=== PATIENT | female | born 1940 | race Caucasian/White ===

== ENCOUNTER 2017-01-25 10:19 | Inpatient (IN) | payer MEDICARE, OTHER ==
[2017-01-25] MEDS: Albuterol 0.083% Inhal Sol (2.5 mg/3 mL) UD INH SCH (10:45)
[2017-01-25] MEDS ORDERED: Albuterol-Ipratrop 3 mg / 0.5 (3 ml) UD ONE ×2 (10:47→12:19)
[2017-01-25 10:59] LABS: BASO % 0.4 % (0.0-2.0); EOS % 0.2 % (0.0-4.0); HEMATOCRIT 31.8 % (34.0-47.0); LYMPH # 0.3 K/uL (1.0-4.3); LYMPH % 5.5 % (20.0-40.0); MEAN CELL VOLUME 86.8 fL (81.0-99.0); MEAN CORPUSCULAR HEMOGLOBIN 28.5 pg (27.0-31.0); MEAN CORPUSCULAR HGB CONC 32.8 g/dL (33.0-37.0); MEAN PLATELET VOLUME 6.9 fL (7.2-11.7); MONO % 0.6 % (0.0-10.0); NRBC % 0.1 % (0.0-2.0); PLATELET COUNT 383 K/uL (130-400); RED CELL DISTRIBUTION WIDTH 17.1 % (11.5-14.5); WHITE BLOOD COUNT 6.2 K/uL (4.8-10.8)
[2017-01-25 11:15] LABS: ALB/GLOB RATIO 0.8 (1.0-2.1); ALKALINE PHOSPHATASE 80 U/L (38-126); ALT/SGPT 38 U/L (9-52); AST/SGOT 21 U/L (14-36); BILIRUBIN,TOTAL 2.3 mg/dL (0.2-1.3); BLOOD UREA NITROGEN 8 mg/dL (7-17); CARBON DIOXIDE 31 mmol/L (22-30); CHLORIDE 100 mmol/L (98-107); GFR AFRICAN-AMERICAN > 60; GLUCOSE,RANDOM 250 mg/dL (65-105); POTASSIUM 3.5 mmol/L (3.6-5.2); SODIUM 132 mmol/L (132-148); TOTAL PROTEIN 7.5 g/dL (6.3-8.3)
[2017-01-25 11:28] LABS: CALCIUM 7.5 mg/dl (8.6-10.4)
--- NOTE | 2017-01-25 11:28 | C.PDOC ---
History Of Present Illness 76 y/o female with PMHx of breast cancer and DM and currently on chemo therapy presents to ED with complaints of 2 days productive cough and fever since yesterday with associated worsening sob. Unable to obtain further history secondary to respiratory distress. Time Seen by Provider: 01/25/17 10:25 Chief Complaint (Nursing): Respiratory Distress History/Exam Limitations: clinical condition Onset/Duration Of Symptoms: Days Current Symptoms Are (Timing): Still Present Initiating Event: Upper Respiratory Illness Past Medical History Reviewed: Historical Data, Nursing Documentation, Vital Signs Vital Signs: Last Vital Signs Temp 98 F 01/25/17 14:47 Pulse 98 H 01/25/17 14:47 Resp 15 01/25/17 14:47 BP 116/72 01/25/17 14:47 Pulse Ox 100 01/25/17 14:47 - Medical History PMH: Anemia, COPD, HTN, Hypothyroidism Surgical History: No Surg Hx Family History: States: No Known Family Hx - Social History Hx Alcohol Use: No Hx Substance Use: No - Immunization History Hx Influenza Vaccination: Yes Hx Pneumococcal Vaccination: No (UNSURE) Review Of Systems Review Of Systems: ROS cannot be obtained secondary to pt's inabilty to answer questions. (Patient in respiratory distress) Physical Exam - Physical Exam Appears: Other (In respiratory distress, On bipap ) Skin: Warm, Dry, No Rash Head: Atraumatic, Normacephalic Oral Mucosa: Moist Neck: Supple Chest: Other (Portacath on left chest wall) Cardiovascular: Rhythm Regular Respiratory: No Rales, Rhonchi (bilateral R>L) Gastrointestinal/Abdominal: Soft, No Tenderness, No Guarding, No Rebound Extremity: No Pedal Edema Pulses: Left Dorsalis Pedis: Normal, Right Dorsalis Pedis: Normal Neurological/Psych: Oriented x3, Normal Cranial Nerves (2-12 intact ) ED Course And Treatment - Laboratory Results Result Diagrams: 01/25/17 10:56 01/25/17 10:56 ECG: Interpreted By Me, Viewed By Me ECG Rhythm: Sinus Tachycardia ECG Interpretation: Normal Interpretation Of ECG: no ectopy, normal axis, no ST or T wave changes Rate From EC O2 Sat by Pulse Oximetry: 50 (RA) Pulse Ox Interpretation: Abnormal - Radiology CXR: Interpreted by Me, Viewed By Me CXR Interpretation: Yes: Other (Right upper lobe and right middle lobe whiteout ) Medical Decision Making Medical Decision Making: Impression: Pneumonia, Rhonca spasm, Post chemotherapy sepsis Plan: Bipap, Neb treatment, Blood work, CXR, ECG Progress: TIme: 1215 Spoke to hospitalist will admit patient under service for Pneumonia Disposition Discussed With Dr.: Christian Jovel Doctor Will See Patient In The: Hospital Counseled Patient/Family Regarding: Diagnosis - Disposition Disposition: HOSPITALIZED Disposition Time: 12:19 Condition: GUARDED - Clinical Impression Clinical Impression: Pneumonia - Scribe Statement The provider has reviewed the documentation as recorded by the Birdibflaquita Cage All medical record entries made by the Birdibflaquita were at my direction and personally dictated by me. I have reviewed the chart and agree that the record accurately reflects my personal performance of the history, physical exam, medical decision making, and the department course for this patient. I have also personally directed, reviewed, and agree with the discharge instructions and disposition. Decision To Admit - Pt Status Changed To: Hospital Disposition Of: Inpatient - Admit Certification Admit to Inpatient:: After my assessment, the patient will require hospitalization for at least two midnights. This is because of the severity of symptoms shown, intensity of services needed, and/or the medical risk in this patient being treated as an outpatient. - InPatient: Physician Admission Certification: I certify that this patient requires 2 or more midnights of care for the following reason:: pneumonia - . Bed Request Type: Telemetry Admitting Physician: Christian Jovel Patient Diagnosis: Pneumonia
[2017-01-25 11:30] LABS: GIANT PLATELETS PRESENT; NEUTROPHIL 60 % (50-75); TOTAL CELLS COUNTED 100
[2017-01-25] MEDS ORDERED: Piperacillin/Tazobact 3.375 GM in Sodium Chloride 100 ML IVPB SCH (12:00)
[2017-01-25] MEDS ORDERED: Piperacill/Tazo 3.375gm in Dex 3.375 GM/50 ML BAG IVPB SCH (12:15)
[2017-01-25 12:44] LABS: ABG ALLEN TEST POS; ARTERIAL BLOOD HGB O2 SAT 93.7 % (95.0-98.0); CARBOXYHEMOGLOBIN 1.5 % (0.5-1.5); DRAW SITE LR; HHB 3.2 % (0.0-5.0); METHEMOGLOBIN 1.6 % (0.0-3.0)
--- NOTE | 2017-01-25 13:05 | CP.PCM.HP ---
<AdelinecurlyMaxine ShadyDread - Last Filed: 01/25/17 14:57> History of Present Illness - History of Present Illness History of Present Illness: CC: abdominal pain, sob HPI: Patient is a 76 yo female with PMH of breast cancer, HTN, DM, and thyroid disorder, who presented to the ED for abdominal pain and shortness of breath. Patient complained of cough that was productive with white sputum and abdominal pain for the past two weeks; however, patient currently denies abdominal pain and cough, and only complained of shortness of breath and generalized weakness. Patient's PMD, Dr. Zhou, reports she was recently admitted to [facility] and was being treated for a multi-drug resistant UTI, however, she signed out AMA. Patient has a history of breast cancer and is currently receiving chemotherapy via port on left chest for "brain cancer". She last received chemotherapy on Sunday 2 weeks ago. Patient is a poor historian. Patient's was at bed side and contributing to some of the patient's history. The patient currently denies fever, chills, dizziness, headaches, chest pain, leg pain, dysuria. PMD: Dr. Zhou Oncologist: does not know name PMHx: Breast cancer, HTN, DM, thyroid disorder (not sure if its hypo or hyper and does not take medication), "Brain cancer" SurgHx: Cesarian section; b/l mastectomy 2014 FamHx: unknown SocHx: denies tobacco, alcohol, drug use; unemployed Allergies: NKDA Medications: "medication for diabetes" Present on Admission - Present on Admission Any Indicators Present on Admission: No Review of Systems - Review of Systems Systems not reviewed;Unavailable: Respiratory Distress - Constitutional Constitutional: Lethargy, Weakness. absent: Chills, Fever, Headache - EENT Ears: absent: Dizziness - Cardiovascular Cardiovascular: Chest Pain (sternum-reproducible), Dyspnea. absent: Palpitations - Respiratory Respiratory: Cough. absent: Dyspnea, Hemoptysis, Excessive Mucous Production, Change in Mucous Color (white sputum), Pain with Coughing - Gastrointestinal Gastrointestinal: Abdominal Pain. absent: Constipation, Diarrhea, Nausea, Vomiting - Genitourinary Genitourinary: absent: Dysuria, Hematuria, Pyuria - Neurological Neurological: Weakness. absent: Dizziness, Headaches Past Patient History - Past Social History Smoking Status: Never Smoked - CARDIAC Hx Hypertension: Yes - PULMONARY Hx Chronic Obstructive Pulmonary Disease (COPD): Yes - ENDOCRINE/METABOLIC Hx Hypothyroidism: Yes - HEMATOLOGICAL/ONCOLOGICAL Hx Anemia: Yes - PSYCHIATRIC Hx Substance Use: No - SURGICAL HISTORY Hx Surgeries: Yes Hx Mastectomy: Yes Other/Comment: LT PORTOCATH. LUNG RESECTION - ANESTHESIA Hx Anesthesia: Yes Hx Anesthesia Reactions: No Meds Allergies/Adverse Reactions: Allergies Allergy/AdvReac Type Severity Reaction Status Date / Time No Known Allergies Allergy Verified 01/25/17 10:25 Physical Exam - Head Exam Head Exam: ATRAUMATIC, NORMOCEPHALIC - Eye Exam Eye Exam: EOMI, PERRL (sluggish) - ENT Exam ENT Exam: Mucous Membranes Dry - Respiratory Exam Respiratory Exam: Rhonchi (B/L). absent: Clear to Auscultation Bilateral, Wheezes, Stridor, NORMAL BREATHING PATTERN - Cardiovascular Exam Cardiovascular Exam: Tachycardia, REGULAR RHYTHM, +S1, +S2 Additional comments: Chemotherapy port on left upper chest - GI/Abdominal Exam GI & Abdominal Exam: Distended, Normal Bowel Sounds, Soft. absent: Guarding, Mass, Tenderness - Extremities Exam Extremities exam: Positive for: pedal edema (1+ pitting edema extending frpm knees to feet b/l), pedal pulses present. Negative for: tenderness - Neurological Exam Neurological exam: Alert, Oriented x3 - Psychiatric Exam Psychiatric exam: Normal Affect, Normal Mood - Skin Skin Exam: Dry, Intact, Normal Color, Warm Additional comments: Bilateral mastectomy scars Results - Vital Signs Recent Vital Signs: Last Vital Signs Temp 99.6 F 01/25/17 13:03 Pulse 108 H 01/25/17 13:03 Resp 24 01/25/17 13:03 BP 141/57 L 01/25/17 13:03 Pulse Ox 99 01/25/17 13:03 - Labs Result Diagrams: 01/25/17 10:56 01/25/17 10:56 Labs: Laboratory Results - last 24 hr 01/25/17 01/25/17 01/25/17 10:44 10:56 10:56 WBC 6.2 RBC 3.66 L Hgb 10.4 L D Hct 31.8 L MCV 86.8 D MCH 28.5 MCHC 32.8 L RDW 17.1 H Plt Count 383 MPV 6.9 L Neut % (Auto) 93.3 H Lymph % (Auto) 5.5 L Blount % (Auto) 0.6 Eos % (Auto) 0.2 Baso % (Auto) 0.4 Neut # 5.7 Lymph # 0.3 L Blount # 0.0 Eos # 0.0 Baso # 0.0 Neutrophils % (Manual) 60 Band Neutrophils % 30 H* Lymphocytes % (Manual) 10 L Monocytes % (Manual) TEST NOT PERFORMED Platelet Estimate Normal Plt Clumps, EDTA Electronics Detail Draftsperson Giant Platelets Present Hypochromasia (manual) Slight Anisocytosis (manual) Slight Puncture Site pCO2 pO2 HCO3 ABG pH ABG Total CO2 ABG O2 Saturation ABG Base Excess ABG Hemoglobin ABG Carboxyhemoglobin POC ABG HHb (Measured) ABG Methemoglobin Saman Test A-a O2 Difference Respiratory Index Hgb O2 Saturation FiO2 Inspiratory BiPAP Expiratory BiPAP Sodium 132 Potassium 3.5 L Chloride 100 Carbon Dioxide 31 H Anion Gap 5 L BUN 8 Creatinine 0.4 L Est GFR ( Amer) > 60 Est GFR (Non-Af Amer) > 60 POC Glucose (mg/dL) 235 H Random Glucose 250 H Lactic Acid Calcium 7.5 L Total Bilirubin 2.3 H AST 21 ALT 38 Alkaline Phosphatase 80 Troponin I < 0.0120 NT-Pro-B Natriuret Pep 593 Total Protein 7.5 Albumin 3.3 L Globulin 4.2 H Albumin/Globulin Ratio 0.8 L 01/25/17 01/25/17 11:57 12:35 WBC RBC Hgb Hct MCV MCH MCHC RDW Plt Count MPV Neut % (Auto) Lymph % (Auto) Blount % (Auto) Eos % (Auto) Baso % (Auto) Neut # Lymph # Blount # Eos # Baso # Neutrophils % (Manual) Band Neutrophils % Lymphocytes % (Manual) Monocytes % (Manual) Platelet Estimate Plt Clumps, EDTA Giant Platelets Hypochromasia (manual) Anisocytosis (manual) Puncture Site Lr pCO2 32 L pO2 79 L HCO3 25.4 ABG pH 7.48 H ABG Total CO2 24.8 ABG O2 Saturation 96.7 ABG Base Excess 0.7 ABG Hemoglobin 10.0 L ABG Carboxyhemoglobin 1.5 POC ABG HHb (Measured) 3.2 ABG Methemoglobin 1.6 Saman Test Pos A-a O2 Difference 238.0 Respiratory Index 3.0 Hgb O2 Saturation 93.7 L FiO2 50.0 Inspiratory BiPAP 10 Expiratory BiPAP 5 Sodium Potassium Chloride Carbon Dioxide Anion Gap BUN Creatinine Est GFR ( Amer) Est GFR (Non-Af Amer) POC Glucose (mg/dL) Random Glucose Lactic Acid 1.6 Calcium Total Bilirubin AST ALT Alkaline Phosphatase Troponin I NT-Pro-B Natriuret Pep Total Protein Albumin Globulin Albumin/Globulin Ratio Assessment & Plan (1) Pleural effusion Assessment and Plan: Chest xray: pending official read, possible right pleural effusion Chest CT: pending official read, possible loculated right pleural effusion Pulmonology consulted, Dr. John, help appreciated Continue BiPAP Status: Acute (2) Shortness of breath Assessment and Plan: Likely secondary to pleural effusion * Chest xray: pending official read, possible right pleural effusion * Chest CT: pending official read, possible loculated right pleural effusion * Blood cx: f/u results * Sputum Cx: f/u results * Influenza A/B: f/u results * BiPAP Medications: * Zosyn 3.375mg IV Q6 * Vancomycin 1gm IV Q12 * Cefepime 1gm IV Q12 Status: Acute (3) Diabetes Assessment and Plan: Patient reports having a history of DM and taking medication for DM; however doesnt know name. Called patient's pharmacy, [facility] ([phone]) for list of medications. ISS (low) Continue to monitor ACHS, Blood Glucose A1c: f/u results Status: Acute (4) Hypertension Assessment and Plan: Patient reports a history of HTN. Called patient's pharmacy, [facility] ) for list of medications. Blood pressure has been within normal range, stable since admission. Will continue to monitor vitals. Status: Acute (5) History of thyroid disease Assessment and Plan: Patient reports having history of thyroid disease, but does not know which type and does not take medications. TSH: f/u results Free T4: f/u results Status: Acute (6) History of UTI Assessment and Plan: Patient was recently treated at [facility] for multidrug resistant UTI. UA: f/u results Urine cx: f/u results ID consulted, Dr. Cook, help appreciated Status: Acute (7) Prophylactic measure Assessment and Plan: SCDs Heparin 5000units SC Q8h Pepcid 20mg PO BID Consistent carb/heart health 2Na diet Status: Acute <Christian Jovel H - Last Filed: 01/25/17 18:13> Results - Vital Signs Recent Vital Signs: Last Vital Signs Temp 98.5 F 01/25/17 15:15 Pulse 97 H 01/25/17 15:15 Resp 20 01/25/17 15:15 BP 108/70 01/25/17 15:15 Pulse Ox 98 01/25/17 15:15 - Labs Result Diagrams: 01/25/17 10:56 01/25/17 10:56 Labs: Laboratory Results - last 24 hr 01/25/17 01/25/17 01/25/17 10:44 10:56 10:56 WBC 6.2 RBC 3.66 L Hgb 10.4 L D Hct 31.8 L MCV 86.8 D MCH 28.5 MCHC 32.8 L RDW 17.1 H Plt Count 383 MPV 6.9 L Neut % (Auto) 93.3 H Lymph % (Auto) 5.5 L Blount % (Auto) 0.6 Eos % (Auto) 0.2 Baso % (Auto) 0.4 Neut # 5.7 Lymph # 0.3 L Blount # 0.0 Eos # 0.0 Baso # 0.0 Neutrophils % (Manual) 60 Band Neutrophils % 30 H* Lymphocytes % (Manual) 10 L Monocytes % (Manual) TEST NOT PERFORMED Platelet Estimate Normal Plt Clumps, EDTA Electronics Detail Draftsperson Giant Platelets Present Hypochromasia (manual) Slight Anisocytosis (manual) Slight Puncture Site pCO2 pO2 HCO3 ABG pH ABG Total CO2 ABG O2 Saturation ABG Base Excess ABG Hemoglobin ABG Carboxyhemoglobin POC ABG HHb (Measured) ABG Methemoglobin Saman Test A-a O2 Difference Respiratory Index Hgb O2 Saturation FiO2 Inspiratory BiPAP Expiratory BiPAP Sodium 132 Potassium 3.5 L Chloride 100 Carbon Dioxide 31 H Anion Gap 5 L BUN 8 Creatinine 0.4 L Est GFR ( Amer) > 60 Est GFR (Non-Af Amer) > 60 POC Glucose (mg/dL) 235 H Random Glucose 250 H Hemoglobin A1c Lactic Acid Calcium 7.5 L Total Bilirubin 2.3 H AST 21 ALT 38 Alkaline Phosphatase 80 Troponin I < 0.0120 NT-Pro-B Natriuret Pep 593 Total Protein 7.5 Albumin 3.3 L Globulin 4.2 H Albumin/Globulin Ratio 0.8 L 01/25/17 01/25/17 01/25/17 11:57 12:35 16:50 WBC RBC Hgb Hct MCV MCH MCHC RDW Plt Count MPV Neut % (Auto) Lymph % (Auto) Blount % (Auto) Eos % (Auto) Baso % (Auto) Neut # Lymph # Blount # Eos # Baso # Neutrophils % (Manual) Band Neutrophils % Lymphocytes % (Manual) Monocytes % (Manual) Platelet Estimate Plt Clumps, EDTA Giant Platelets Hypochromasia (manual) Anisocytosis (manual) Puncture Site Lr pCO2 32 L pO2 79 L HCO3 25.4 ABG pH 7.48 H ABG Total CO2 24.8 ABG O2 Saturation 96.7 ABG Base Excess 0.7 ABG Hemoglobin 10.0 L ABG Carboxyhemoglobin 1.5 POC ABG HHb (Measured) 3.2 ABG Methemoglobin 1.6 Saman Test Pos A-a O2 Difference 238.0 Respiratory Index 3.0 Hgb O2 Saturation 93.7 L FiO2 50.0 Inspiratory BiPAP 10 Expiratory BiPAP 5 Sodium Potassium Chloride Carbon Dioxide Anion Gap BUN Creatinine Est GFR ( Amer) Est GFR (Non-Af Amer) POC Glucose (mg/dL) Random Glucose Hemoglobin A1c 8.6 H Lactic Acid 1.6 Calcium Total Bilirubin AST ALT Alkaline Phosphatase Troponin I NT-Pro-B Natriuret Pep Total Protein Albumin Globulin Albumin/Globulin Ratio 01/25/17 17:23 WBC RBC Hgb Hct MCV MCH MCHC RDW Plt Count MPV Neut % (Auto) Lymph % (Auto) Blount % (Auto) Eos % (Auto) Baso % (Auto) Neut # Lymph # Blount # Eos # Baso # Neutrophils % (Manual) Band Neutrophils % Lymphocytes % (Manual) Monocytes % (Manual) Platelet Estimate Plt Clumps, EDTA Giant Platelets Hypochromasia (manual) Anisocytosis (manual) Puncture Site pCO2 pO2 HCO3 ABG pH ABG Total CO2 ABG O2 Saturation ABG Base Excess ABG Hemoglobin ABG Carboxyhemoglobin POC ABG HHb (Measured) ABG Methemoglobin Saman Test A-a O2 Difference Respiratory Index Hgb O2 Saturation FiO2 Inspiratory BiPAP Expiratory BiPAP Sodium Potassium Chloride Carbon Dioxide Anion Gap BUN Creatinine Est GFR ( Amer) Est GFR (Non-Af Amer) POC Glucose (mg/dL) 299 H Random Glucose Hemoglobin A1c Lactic Acid Calcium Total Bilirubin AST ALT Alkaline Phosphatase Troponin I NT-Pro-B Natriuret Pep Total Protein Albumin Globulin Albumin/Globulin Ratio Attending/Attestation - Attestation I have personally seen and examined this patient.: Yes I have fully participated in the care of the patient.: Yes I have reviewed all pertinent clinical information: Yes Notes (Text): Medical attending: The patient was seen and examined by me as well, reviewed the above note by the lpn medical assistant and agree. This is a very ill-appearing 76-year-old female with past medical history for we believed to be breast cancer with metastatic disease. Before coming to see the patient I spoke with the patient's primary care physician to get additional information. The patient is actively getting chemotherapy through a left chest port. It's not clear who the medical research associate oncologist is said she follows up and take oncology group by [facility] in [facility]. The patient is not able to tell us the name of her oncologist physician is. Per my discussion with the patient's primary care physician, the patient was recently at [facility] and being treated for UTI there however for some reason left AMA and might not have finished her antibiotics course. On physical exam she has decreased breath sounds right lung. Review of the imaging shows that there is a chest x-ray showing what appears to be probably a right upper lobe pneumonia, we then ordered a CT scan of the lung which clearly shows that she looks like has a loculated right upper lobe effusion. It's possible that this could be either malignancy or infection The patient has sepsis. Review of lab work shows that she has a normal white blood cell count however she has a very large left shift 90% neutrophils as well as bandemia of 30. It's possible that she is immune compromised from the recent chemotherapy. We will try to get infectious disease consultation, as well as a pulmonology evaluation. The patient will be started on vancomycin as well as cefepime. Recheck blood cultures as well and attempt to get sputum cultures. She was on BiPAP in the emergency room, this was later taken off. She did have ABG she was not acidotic, she did not have a high lactic acid level. Thank you very much, Christian Jovel
[2017-01-25] MEDS ORDERED: Sodium Chloride 0.9% 1,000 ML IV SCH (14:00)
[2017-01-25] MEDS: Sodium Chloride 0.9% 1,000 ML IV SCH (15:15)
[2017-01-25] MEDS ORDERED: Cefepime IV 1 gm in Dextrose 1 GM/50 ML BAG IVPB SCH (16:00)
--- NOTE | 2017-01-25 16:08 | CT ---
CT chest without IV contrast Indication: RUL infiltrate, hx breast CA Technique: Contiguous axial images were obtained through the chest without intravenous contrast enhancement. Sagittal and coronal reconstructions were generated and reviewed. This CT exam was performed using 1 or more of the falling dose reduction techniques: Automated exposure control, adjustment of the MAA and/or kV according to patient size, and/or use of iterative reconstruction technique. Radiation dose (DLP): 323.99 MGy-cm. Comparison: Noncontrast CT of the chest 01/25/17 Findings: Left-sided MediPort extends to the SVC. Heart size appears top normal. Dense mitral annulus calcification. Dense coronary artery calcifications. Evidence of partial left lower lobectomy. Extensive opacification of the right upper lobe possibly represents soft tissue mass/ malignant neoplasm, pneumonia, and/or postobstructive atelectasis. This finding is inseparable from the upper mediastinum and right hilum. The right upper lobe bronchus appears narrowed, possibly occluded. Suspect mucous or neoplasm within the distal right lower lobe bronchus. Small right pleural effusion which dependent consolidation. No pneumothorax. Limited visualization of the noncontrast upper abdomen demonstrates numerous hypodense hepatic masses worrisome for metastases. Small hiatal hernia. Atrophic pancreas. Bilateral mastectomy. Mixed chondroid matrix lesion, right humerus. Degenerative changes of the spine. Evidence of compression fracture, L2, partially imaged. Impression: Evidence of partial left lower lobectomy. Extensive opacification of the right upper lobe possibly represents soft tissue mass/malignant neoplasm, pneumonia, and/or postobstructive atelectasis. Correlate clinically. This finding is inseparable from the upper mediastinum and right hilum. The right upper lobe bronchus appears narrowed, possibly occluded. Suspect mucous or neoplasm within the distal right lower lobe bronchus. Small right pleural effusion which dependent consolidation. Numerous hypodense hepatic masses worrisome for metastases. Bilateral mastectomy. Mixed chondroid matrix lesion, right humerus. This may represent enchondroma or chondrosarcoma in the proper clinical setting. Partially imaged L2 compression fracture deformity. Additional incidental findings as above.
--- NOTE | 2017-01-25 16:20 | RAD ---
PROCEDURE: CHEST RADIOGRAPH, 1 VIEW HISTORY: SOB COMPARISON: 07/29/2015 FINDINGS: LUNGS: Marked interval change- right upper lobe homogeneous opacity in right upper lobe collapse inferred. -left hemithorax similar PLEURA: No pneumothorax or layering right pleural fluid seen. CARDIOVASCULAR: Mild cardiomegaly. 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 Slightly more conspicuous when compared with the 10/22/2011 study VISUALIZED UPPER ABDOMEN: Normal. OTHER FINDINGS: None. IMPRESSION: Interval right upper lobe collapse -endobronchial and or surrounding extrinsic compressive causative lesion suspect.
[2017-01-25] MEDS: (Novolin R) Insulin Human Regular 100 units/ml vial SC SCH ×2 (17:15→22:17)
--- NOTE | 2017-01-25 17:34 | CP.PCM.CON ---
History of Present Illness - History of Present Illness History of Present Illness: 76 yo female presented to the ED for abdominal pain and shortness of breath. Patient complained of cough that was productive with white sputum and abdominal pain for the past two weeks; she was recently admitted to [facility] and was being treated for a multi-drug resistant UTI, however, she signed out AMA. Patient has a history of breast cancer and is currently receiving chemotherapy via port on left chest for "brain cancer". admitted with possible sepsis resp failure and pneumonia- has extensive mets IV Merrem added to vanco Poor prognosis PMHx: Breast cancer, HTN, DM, thyroid disorder (not sure if its hypo or hyper and does not take medication), "Brain cancer" SurgHx: Cesarian section; b/l mastectomy 2014 FamHx: unknown SocHx: denies tobacco, alcohol, drug use; unemployed Allergies: NKDA Review of Systems - Constitutional Constitutional: As Per HPI, Anorexia, Chills, Malaise - EENT Eyes: absent: As Per HPI, Blind Spots, Blurred Vision, Change in Vision, Decreased Night Vision, Diplopia, Discharge, Dry Eye, Exophthalmos, Floaters, Irritation, Itchy Eyes, Loss of Peripheral Vision, Pain, Photophobia, Requires Corrective Lenses, Sees Flashes, Spots in Vision, Tunnel Vision, Other Visual Disturbances, Loss of Vision, Other Ears: absent: As Per HPI, Decreased Hearing, Ear Discharge, Ear Pain, Tinnitus, Abnormal Hearing, Disequilibrium, Dizziness, Other Nose/Mouth/Throat: absent: As Per HPI, Epistaxis, Nasal Congestion, Nasal Discharge, Nasal Obstruction, Nasal Trauma, Nose Pain, Post Nasal Drip, Sinus Pain, Sinus Pressure, Bleeding Gums, Change in Voice, Dental Pain, Dry Mouth, Dysphagia, Halitosis, Hoarsness, Lip Swelling, Mouth Lesions, Mouth Pain, Odynophagia, Sore Throat, Throat Swelling, Tongue Swelling, Facial Pain, Neck Pain, Neck Mass, Other - Breasts Breasts: As Per HPI - Cardiovascular Cardiovascular: As Per HPI - Respiratory Respiratory: Cough, Dyspnea, Dyspnea on Exertion. absent: Hemoptysis - Gastrointestinal Gastrointestinal: absent: As Per HPI, Abdominal Pain, Belching, Bloating, Change in Bowel Habits, Change in Stool Character, Coffee Ground Emesis, Constipation, Cramping, Diarrhea, Dyspepsia, Dysphagia, Early Satiety, Excessive Flatus, Fecal Incontinence, Heartburn, Hematemesis, Hematochezia, Loose Stools, Melena, Nausea, Odynophagia, Temesmus, Vomiting, Other - Genitourinary Genitourinary: As Per HPI - Reproductive: Female Reproductive:Female: absent: As Per HPI, Amenorrhea, Amenorrhea/ Control, Currently Menstual, Cycle <21 Days, Cycle >35 Days, Cycle Variable, Menses 1-7 Days, Menses >/= 8 Days, Menses Variable, Cycle > 4 Weeks Between, No Menses for 6 Months, Heavy Menses, Light Menses, Normal Menses, Spotting Between Cycles , S/P Hysterectomy, Menopausal, Post Menopausal, Premenarche, Abnormal Vaginal Bleeding, Dysmenorrhea, Dyspareunia, Genital Lesions, Genital Pruritis, Pelvic Pain, Prolapse Symptoms, Sexual Dysfunction, Vaginal Discharge, Vaginal Dryness , Vaginal Odor, Vaginal Pruritis, Other - Menstruation Menstruation: absent: As Per HPI, Amenorrhea, Amenorrhea/ Control, Currently Menstual, Cycle <21 Days, Cycle >35 Days, Cycle Variable, Menses 1-7 Days, Menses >/= 8 Days, Menses Variable, Cycle > 4 Weeks Between, No Menses for 6 Months, Heavy Menses, Light Menses, Normal Menses, Spotting Between Cycles , S/P Hysterectomy, Menopausal, Post Menopausal, Premenarche, Abnormal Vaginal Bleeding, Dysmenorrhea, Other - Musculoskeletal Musculoskeletal: absent: As Per HPI, Abnormal Gait, Arthralgias, Atrophy, Back Pain, Deformity, Joint Swelling, Limited Range of Motion, Loss of Height, Muscle Cramps, Muscle Weakness, Myalgias, Neck Pain, Numbness, Radiating Pain into Limb, Stiffness, Tingling, Other - Integumentary Integumentary: absent: As Per HPI, Acne, Alopecia, Bleeding Lesions, Change in Hair, Change in Nails, Change in Pigmentation, Changing Lesions, Dry Skin, Erythema, Furuncle, Hirsutism, Lesions, New Lesions, Non-Healing Lesions, Photosensitivity, Pruritus, Rash, Skin Pain, Skin Ulcer, Sores, Striae, Swelling , Unusual Bruising, Wounds, Jaundice, Other - Neurological Neurological: absent: As Per HPI, Abnormal Gait, Abnormal Hearing, Abnormal Movements, Abnormal Speech, Behavioral Changes, Burning Sensations, Confusion, Convulsions, Disequilibrium, Dizziness, Numbness, Focal Weakness, Frequent Falls , Headaches, Lack of Coordination, Loss of Vision, Memory Loss, Paresthesias, Radicular Pain, Restless Legs, Sensory Deficit, Syncope, Tingling, Tremor, Vertigo, Weakness, Other Visual Disturbances, Other - Psychiatric Psychiatric: absent: As Per HPI, Abnormal Sleep Pattern, Anhedonia, Anxiety, Auditory Hallucinations, Behavioral Changes, Change in Appetite, Change in Libido, Confusion, Depression, Difficulty Concentrating, Hallucinations, Homicidal Ideation, Hopelessness, Irritability, Memory Loss, Mood Swings, Panic Attacks, Paranoia, Suicidal Ideation, Visual Hallucinations, Tactile Hallucinations, Other - Endocrine Endocrine: absent: As Per HPI, Change in Body Appearance, Change in Libido, Cold Intolorance, Deepening of Voice, Excessive Sweating, Fatigue, Flushing, Heat Intolorance, Increase in Ring/Shoe/Hat Size, Palpitations, Polydipsia, Polyphagia, Polyuria, Other - Hematologic/Lymphatic Hematologic: absent: As Per HPI, Easy Bleeding, Easy Bruising, Lymphadenopathy, Other Past Patient History - Past Social History Smoking Status: Never Smoked - CARDIAC Hx Hypertension: Yes - PULMONARY Hx Chronic Obstructive Pulmonary Disease (COPD): Yes - ENDOCRINE/METABOLIC Hx Hypothyroidism: Yes - HEMATOLOGICAL/ONCOLOGICAL Hx Anemia: Yes - PSYCHIATRIC Hx Substance Use: No - SURGICAL HISTORY Hx Surgeries: Yes Hx Mastectomy: Yes Other/Comment: LT PORTOCATH. LUNG RESECTION - ANESTHESIA Hx Anesthesia: Yes Hx Anesthesia Reactions: No Meds Allergies/Adverse Reactions: Allergies Allergy/AdvReac Type Severity Reaction Status Date / Time No Known Allergies Allergy Verified 01/25/17 10:25 - Medications Medications: Current Medications Acetaminophen (Tylenol 325mg Tab) 650 mg PO Q6 PRN PRN Reason: Pain, Mild (1-3) Famotidine (Pepcid) 20 mg PO BID [facility] Heparin Sodium (Porcine) (Heparin) 5,000 units SC Q8 [facility] Cefepime HCl (Maxipime Iv 1 Gm Premix) 1 gm in 50 mls @ 100 mls/hr IVPB Q12H [facility] Vancomycin/Sodium Chloride (Vancomycin 1 Gm/Ns 200 Ml) 1 gm in 200 mls @ 133 mls/hr IVPB Q12H [facility] Stop: 01/30/17 17:01 Sodium Chloride (Sodium Chloride 0.9%) 1,000 mls @ 40 mls/hr IV .Q24H [facility] Last Admin: 01/25/17 15:15 Dose: 40 mls/hr Insulin Human Regular (Novolin R) 0 unit SC ACHS [facility]ELINA PRN Reason: Protocol Physical Exam - Constitutional Appears: Confused, Cachectic, Chronically Ill - Head Exam Head Exam: ATRAUMATIC, NORMAL INSPECTION, NORMOCEPHALIC - Eye Exam Eye Exam: PERRL. absent: Scleral icterus - ENT Exam ENT Exam: Mucous Membranes Dry, Normal External Ear Exam - Neck Exam Neck exam: Negative for: Lymphadenopathy - Respiratory Exam Respiratory Exam: Decreased Breath Sounds, Prolonged Expiratory Phase, Rhonchi - Cardiovascular Exam Cardiovascular Exam: Tachycardia, REGULAR RHYTHM, +S1, +S2 - GI/Abdominal Exam GI & Abdominal Exam: Diminished Bowel Sounds, Distended, Soft. absent: Guarding , Rebound, Rigid - Rectal Exam Rectal Exam: Deferred - Exam Exam: NORMAL INSPECTION - Extremities Exam Extremities exam: Positive for: pedal pulses present. Negative for: calf tenderness, pedal edema, tenderness - Back Exam Back exam: absent: CVA tenderness (L), CVA tenderness (R), paraspinal tenderness - Neurological Exam Neurological exam: Alert, CN II-XII Intact, Oriented x3 - Psychiatric Exam Psychiatric exam: Depressed - Skin Skin Exam: Dry Results - Vital Signs Recent Vital Signs: Last Vital Signs Temp 98.5 F 01/25/17 15:15 Pulse 97 H 01/25/17 15:15 Resp 20 01/25/17 15:15 BP 108/70 01/25/17 15:15 Pulse Ox 98 01/25/17 15:15 - Labs Result Diagrams: 01/25/17 10:56 01/25/17 10:56 Labs: Laboratory Results - last 24 hr 01/25/17 01/25/17 01/25/17 10:44 10:56 10:56 WBC 6.2 RBC 3.66 L Hgb 10.4 L D Hct 31.8 L MCV 86.8 D MCH 28.5 MCHC 32.8 L RDW 17.1 H Plt Count 383 MPV 6.9 L Neut % (Auto) 93.3 H Lymph % (Auto) 5.5 L [place] % (Auto) 0.6 Eos % (Auto) 0.2 Baso % (Auto) 0.4 Neut # 5.7 Lymph # 0.3 L [place] # 0.0 Eos # 0.0 Baso # 0.0 Neutrophils % (Manual) 60 Band Neutrophils % 30 H* Lymphocytes % (Manual) 10 L Monocytes % (Manual) TEST NOT PERFORMED Platelet Estimate Normal Plt Clumps, EDTA [employer] Giant Platelets Present Hypochromasia (manual) Slight Anisocytosis (manual) Slight Puncture Site pCO2 pO2 HCO3 ABG pH ABG Total CO2 ABG O2 Saturation ABG Base Excess ABG Hemoglobin ABG Carboxyhemoglobin POC ABG HHb (Measured) ABG Methemoglobin Saman Test A-a O2 Difference Respiratory Index Hgb O2 Saturation FiO2 Inspiratory BiPAP Expiratory BiPAP Sodium 132 Potassium 3.5 L Chloride 100 Carbon Dioxide 31 H Anion Gap 5 L BUN 8 Creatinine 0.4 L Est GFR ( Amer) > 60 Est GFR (Non-Af Amer) > 60 POC Glucose (mg/dL) 235 H Random Glucose 250 H Hemoglobin A1c Lactic Acid Calcium 7.5 L Total Bilirubin 2.3 H AST 21 ALT 38 Alkaline Phosphatase 80 Troponin I < 0.0120 NT-Pro-B Natriuret Pep 593 Total Protein 7.5 Albumin 3.3 L Globulin 4.2 H Albumin/Globulin Ratio 0.8 L 01/25/17 01/25/17 01/25/17 11:57 12:35 16:50 WBC RBC Hgb Hct MCV MCH MCHC RDW Plt Count MPV Neut % (Auto) Lymph % (Auto) [place] % (Auto) Eos % (Auto) Baso % (Auto) Neut # Lymph # [place] # Eos # Baso # Neutrophils % (Manual) Band Neutrophils % Lymphocytes % (Manual) Monocytes % (Manual) Platelet Estimate Plt Clumps, EDTA Giant Platelets Hypochromasia (manual) Anisocytosis (manual) Puncture Site Lr pCO2 32 L pO2 79 L HCO3 25.4 ABG pH 7.48 H ABG Total CO2 24.8 ABG O2 Saturation 96.7 ABG Base Excess 0.7 ABG Hemoglobin 10.0 L ABG Carboxyhemoglobin 1.5 POC ABG HHb (Measured) 3.2 ABG Methemoglobin 1.6 Saman Test Pos A-a O2 Difference 238.0 Respiratory Index 3.0 Hgb O2 Saturation 93.7 L FiO2 50.0 Inspiratory BiPAP 10 Expiratory BiPAP 5 Sodium Potassium Chloride Carbon Dioxide Anion Gap BUN Creatinine Est GFR ( Amer) Est GFR (Non-Af Amer) POC Glucose (mg/dL) Random Glucose Hemoglobin A1c 8.6 H Lactic Acid 1.6 Calcium Total Bilirubin AST ALT Alkaline Phosphatase Troponin I NT-Pro-B Natriuret Pep Total Protein Albumin Globulin Albumin/Globulin Ratio Assessment & Plan (1) Diabetes Status: Acute (2) History of UTI Status: Acute (3) Pleural effusion Status: Acute (4) Pneumonia Status: Acute (5) Shortness of breath Status: Acute - Assessment and Plan (Free Text) Assessment: breast CA IV s/p chemo Liver mets possible lung mets resp failure hx MDRO UTI sepsis Plan: add merrem to vanco
[2017-01-25] MEDS: Vancomycin 1 gm/NS 200 ml 1 GM/200 ML BAG IVPB SCH (17:56)
--- NOTE | 2017-01-25 18:51 | CP.PCM.CON ---
History of Present Illness - History of Present Illness History of Present Illness: reason for consultation: shortness of breath 76 yo female With history off brain tumor, breast cancer with metastases to lung status post lobectomy presented to the ED for abdominal pain and shortness of breath. Patient complained of cough that was productive with white sputum and abdominal pain for the past two weeks; she was recently admitted to [facility] and was being treated for a multi-drug resistant UTI, however, she signed out AMA. Patient has a history of breast cancer and is currently receiving chemotherapy via port on left chest for "brain cancer". PMHx: Breast cancer, HTN, DM, thyroid disorder (not sure if its hypo or hyper and does not take medication), "Brain cancer" SurgHx: Cesarian section; b/l mastectomy 2014 FamHx: unknown SocHx: denies tobacco, alcohol, drug use; unemployed Allergies: NKDA Review of Systems - Review of Systems Systems not reviewed;Unavailable: Language Barrier Past Patient History - Past Social History Smoking Status: Never Smoked - CARDIAC Hx Hypertension: Yes - PULMONARY Hx Chronic Obstructive Pulmonary Disease (COPD): Yes - ENDOCRINE/METABOLIC Hx Hypothyroidism: Yes - HEMATOLOGICAL/ONCOLOGICAL Hx Anemia: Yes - PSYCHIATRIC Hx Substance Use: No - SURGICAL HISTORY Hx Surgeries: Yes Hx Mastectomy: Yes Other/Comment: LT PORTOCATH. LUNG RESECTION - ANESTHESIA Hx Anesthesia: Yes Hx Anesthesia Reactions: No Meds Allergies/Adverse Reactions: Allergies Allergy/AdvReac Type Severity Reaction Status Date / Time No Known Allergies Allergy Verified 01/25/17 10:25 - Medications Medications: Current Medications Acetaminophen (Tylenol 325mg Tab) 650 mg PO Q6 PRN PRN Reason: Pain, Mild (1-3) Famotidine (Pepcid) 20 mg PO BID [facility] Heparin Sodium (Porcine) (Heparin) 5,000 units SC Q8 [facility] Vancomycin/Sodium Chloride (Vancomycin 1 Gm/Ns 200 Ml) 1 gm in 200 mls @ 133 mls/hr IVPB Q12H [facility] Stop: 01/30/17 17:01 Last Admin: 01/25/17 17:56 Dose: 133 mls/hr Sodium Chloride (Sodium Chloride 0.9%) 1,000 mls @ 40 mls/hr IV .Q24H [facility]INA Last Admin: 01/25/17 15:15 Dose: 40 mls/hr Meropenem 1 gm/ Sodium (Chloride) 100 mls @ 100 mls/hr IVPB Q8H [facility] Insulin Human Regular (Novolin R) 0 unit SC ACHS MARCELINA PRN Reason: Protocol Physical Exam - Head Exam Head Exam: ATRAUMATIC, NORMOCEPHALIC Results - Vital Signs Recent Vital Signs: Last Vital Signs Temp 98.5 F 01/25/17 15:15 Pulse 97 H 01/25/17 15:15 Resp 20 01/25/17 15:15 BP 108/70 01/25/17 15:15 Pulse Ox 98 01/25/17 15:15 - Labs Result Diagrams: 01/25/17 10:56 01/25/17 10:56 Labs: Laboratory Results - last 24 hr 01/25/17 01/25/17 01/25/17 10:44 10:56 10:56 WBC 6.2 RBC 3.66 L Hgb 10.4 L D Hct 31.8 L MCV 86.8 D MCH 28.5 MCHC 32.8 L RDW 17.1 H Plt Count 383 MPV 6.9 L Neut % (Auto) 93.3 H Lymph % (Auto) 5.5 L [place] % (Auto) 0.6 Eos % (Auto) 0.2 Baso % (Auto) 0.4 Neut # 5.7 Lymph # 0.3 L [place] # 0.0 Eos # 0.0 Baso # 0.0 Neutrophils % (Manual) 60 Band Neutrophils % 30 H* Lymphocytes % (Manual) 10 L Monocytes % (Manual) TEST NOT PERFORMED Platelet Estimate Normal Plt Clumps, EDTA [employer]yer Giant Platelets Present Hypochromasia (manual) Slight Anisocytosis (manual) Slight Puncture Site pCO2 pO2 HCO3 ABG pH ABG Total CO2 ABG O2 Saturation ABG Base Excess ABG Hemoglobin ABG Carboxyhemoglobin POC ABG HHb (Measured) ABG Methemoglobin Saman Test A-a O2 Difference Respiratory Index Hgb O2 Saturation FiO2 Inspiratory BiPAP Expiratory BiPAP Sodium 132 Potassium 3.5 L Chloride 100 Carbon Dioxide 31 H Anion Gap 5 L BUN 8 Creatinine 0.4 L Est GFR ( Amer) > 60 Est GFR (Non-Af Amer) > 60 POC Glucose (mg/dL) 235 H Random Glucose 250 H Hemoglobin A1c Lactic Acid Calcium 7.5 L Total Bilirubin 2.3 H AST 21 ALT 38 Alkaline Phosphatase 80 Troponin I < 0.0120 NT-Pro-B Natriuret Pep 593 Total Protein 7.5 Albumin 3.3 L Globulin 4.2 H Albumin/Globulin Ratio 0.8 L 01/25/17 01/25/17 01/25/17 11:57 12:35 16:50 WBC RBC Hgb Hct MCV MCH MCHC RDW Plt Count MPV Neut % (Auto) Lymph % (Auto) [place] % (Auto) Eos % (Auto) Baso % (Auto) Neut # Lymph # [place] # Eos # Baso # Neutrophils % (Manual) Band Neutrophils % Lymphocytes % (Manual) Monocytes % (Manual) Platelet Estimate Plt Clumps, EDTA Giant Platelets Hypochromasia (manual) Anisocytosis (manual) Puncture Site Lr pCO2 32 L pO2 79 L HCO3 25.4 ABG pH 7.48 H ABG Total CO2 24.8 ABG O2 Saturation 96.7 ABG Base Excess 0.7 ABG Hemoglobin 10.0 L ABG Carboxyhemoglobin 1.5 POC ABG HHb (Measured) 3.2 ABG Methemoglobin 1.6 Saman Test Pos A-a O2 Difference 238.0 Respiratory Index 3.0 Hgb O2 Saturation 93.7 L FiO2 50.0 Inspiratory BiPAP 10 Expiratory BiPAP 5 Sodium Potassium Chloride Carbon Dioxide Anion Gap BUN Creatinine Est GFR ( Amer) Est GFR (Non-Af Amer) POC Glucose (mg/dL) Random Glucose Hemoglobin A1c 8.6 H Lactic Acid 1.6 Calcium Total Bilirubin AST ALT Alkaline Phosphatase Troponin I NT-Pro-B Natriuret Pep Total Protein Albumin Globulin Albumin/Globulin Ratio 01/25/17 17:23 WBC RBC Hgb Hct MCV MCH MCHC RDW Plt Count MPV Neut % (Auto) Lymph % (Auto) [place] % (Auto) Eos % (Auto) Baso % (Auto) Neut # Lymph # [place] # Eos # Baso # Neutrophils % (Manual) Band Neutrophils % Lymphocytes % (Manual) Monocytes % (Manual) Platelet Estimate Plt Clumps, EDTA Giant Platelets Hypochromasia (manual) Anisocytosis (manual) Puncture Site pCO2 pO2 HCO3 ABG pH ABG Total CO2 ABG O2 Saturation ABG Base Excess ABG Hemoglobin ABG Carboxyhemoglobin POC ABG HHb (Measured) ABG Methemoglobin Saman Test A-a O2 Difference Respiratory Index Hgb O2 Saturation FiO2 Inspiratory BiPAP Expiratory BiPAP Sodium Potassium Chloride Carbon Dioxide Anion Gap BUN Creatinine Est GFR ( Amer) Est GFR (Non-Af Amer) POC Glucose (mg/dL) 299 H Random Glucose Hemoglobin A1c Lactic Acid Calcium Total Bilirubin AST ALT Alkaline Phosphatase Troponin I NT-Pro-B Natriuret Pep Total Protein Albumin Globulin Albumin/Globulin Ratio Assessment & Plan (1) Pneumonia Status: Acute (2) Shortness of breath Status: Acute
[2017-01-25] MEDS: Albuterol-Ipratrop 3 mg / 0.5 (3 ml) UD INH SCH (19:28)
[2017-01-25] MEDS: Meropenem 1 GM in Sodium Chloride 0.9% 100 ML IVPB SCH (19:40)
[2017-01-25 22:04] LABS: RBC URINE < 1 /hpf (0-3); URINE BILIRUBIN NEGATIVE (NEGATIVE); URINE BLOOD NEGATIVE (NEGATIVE); URINE COLOR Yellow (YELLOW); URINE GLUCOSE (UA) 3+ mg/dL (Normal); URINE KETONE 1+ mg/dL (NEGATIVE); URINE LEUKOCYTE ESTERASE NEG Leu/uL (Negative); URINE PROTEIN NEGATIVE (NEGATIVE); WBC URINE 1 /hpf (0-5)
[2017-01-25] MEDS: MethylPREDNISolone 40 mg Vial IV SCH (22:25)
[2017-01-26] MEDS: Albuterol-Ipratrop 3 mg / 0.5 (3 ml) UD INH SCH ×4 (01:28→19:31)
[2017-01-26] MEDS: Meropenem 1 GM in Sodium Chloride 0.9% 100 ML IVPB SCH ×3 (04:03→19:24)
[2017-01-26] MEDS: MethylPREDNISolone 40 mg Vial IV SCH ×3 (06:12→21:55)
[2017-01-26] MEDS: Vancomycin 1 gm/NS 200 ml 1 GM/200 ML BAG IVPB SCH ×2 (06:14→16:01)
[2017-01-26 07:52] LABS: BASO % 0.2 % (0.0-2.0); HEMATOCRIT 26.5 % (34.0-47.0); LYMPH # 0.5 K/uL (1.0-4.3); LYMPH % 5.3 % (20.0-40.0); MEAN CELL VOLUME 87.6 fL (81.0-99.0); MEAN CORPUSCULAR HEMOGLOBIN 28.4 pg (27.0-31.0); MEAN CORPUSCULAR HGB CONC 32.4 g/dL (33.0-37.0); MEAN PLATELET VOLUME 7.6 fL (7.2-11.7); MONO # 0.1 K/uL (0.0-0.8); MONO % 0.7 % (0.0-10.0); NRBC % 0.1 % (0.0-2.0); RED CELL DISTRIBUTION WIDTH 16.9 % (11.5-14.5); WHITE BLOOD COUNT 9.3 K/uL (4.8-10.8)
[2017-01-26 07:57] LABS: PLATELET COUNT 273 K/uL (130-400)
[2017-01-26] MEDS: (Novolin R) Insulin Human Regular 100 units/ml vial SC SCH ×4 (08:35→23:02)
[2017-01-26 08:39] LABS: ALB/GLOB RATIO 0.8 (1.0-2.1); ALKALINE PHOSPHATASE 62 U/L (38-126); ALT/SGPT 38 U/L (9-52); AST/SGOT 19 U/L (14-36); BLOOD UREA NITROGEN 9 mg/dL (7-17); CALCIUM 7.2 mg/dl (8.6-10.4); CARBON DIOXIDE 28 mmol/L (22-30); CHLORIDE 102 mmol/L (98-107); GFR AFRICAN-AMERICAN > 60; GLUCOSE,RANDOM 237 mg/dL (65-105); POTASSIUM 3.6 mmol/L (3.6-5.2); SODIUM 133 mmol/L (132-148); TOTAL PROTEIN 6.7 g/dL (6.3-8.3)
[2017-01-26 08:56] LABS: T4 7.16 ug/dL (5.5-11.0)
[2017-01-26 09:10] LABS: THYROID STIMULATING HORMONE 0.23 mIU/L (0.46-4.68)
[2017-01-26 09:34] LABS: NEUTROPHIL 64 % (50-75); TOTAL CELLS COUNTED 100
--- NOTE | 2017-01-26 10:14 | CP.PCM.PN ---
Subjective - Date & Time of Evaluation Date of Evaluation: 01/26/17 Time of Evaluation: 09:00 - Subjective Subjective: the patient seen and examined 76-year-old female with history of lung cancer status post lobectomy 3 years ago , metastatic breast cancer with mets to brain and lungs admitted with shortness of breath and cough, patient being treated for postobstructive pneumonia On BiPAP and antibiotics Breathing better Started on steroids and nebulizer treatment yesterday Objective - Vital Signs/Intake and Output Vital Signs (last 24 hours): Temp Pulse Resp BP Pulse Ox 99.0 F 105 H 20 125/79 97 01/26/17 08:05 01/26/17 08:05 01/26/17 08:05 01/26/17 08:05 01/26/17 08:05 Intake and Output: 01/26/17 01/26/17 06:59 18:59 Intake Total 280 Balance 280 - Medications Medications: Current Medications Acetaminophen (Tylenol 325mg Tab) 650 mg PO Q6 PRN PRN Reason: Pain, Mild (1-3) Albuterol/Ipratropium (Duoneb 3 Mg/0.5 Mg (3 Ml) Ud) 3 ml INH RQ6 [facility] Last Admin: 01/26/17 07:19 Dose: 3 ml Famotidine (Pepcid) 20 mg PO BID [facility] Last Admin: 01/26/17 10:08 Dose: 20 mg Heparin Sodium (Porcine) (Heparin) 5,000 units SC Q8 [facility] Last Admin: 01/26/17 06:13 Dose: 5,000 units Vancomycin/Sodium Chloride (Vancomycin 1 Gm/Ns 200 Ml) 1 gm in 200 mls @ 133 mls/hr IVPB Q12H [facility] Stop: 01/30/17 17:01 Last Admin: 01/26/17 06:14 Dose: 133 mls/hr Sodium Chloride (Sodium Chloride 0.9%) 1,000 mls @ 40 mls/hr IV .Q24H [facility] Last Admin: 01/25/17 15:15 Dose: 40 mls/hr Meropenem 1 gm/ Sodium (Chloride) 100 mls @ 100 mls/hr IVPB Q8H [facility] Last Admin: 01/26/17 10:10 Dose: 100 mls/hr Insulin Human Regular (Novolin R) 0 unit SC ACHS [facility]ELINA PRN Reason: Protocol Last Admin: 01/26/17 08:35 Dose: 3 unit Methylprednisolone (Solu-Medrol) 40 mg IV Q8 [facility] Last Admin: 01/26/17 06:12 Dose: 40 mg - Labs Labs: 01/26/17 07:39 01/26/17 07:39 - Head Exam Head Exam: ATRAUMATIC, NORMOCEPHALIC - ENT Exam ENT Exam: Mucous Membranes Moist - Neck Exam Neck Exam: Normal Inspection - Respiratory Exam Respiratory Exam: Decreased Breath Sounds, Rales, Rhonchi - Cardiovascular Exam Cardiovascular Exam: REGULAR RHYTHM - GI/Abdominal Exam GI & Abdominal Exam: Soft, Normal Bowel Sounds Assessment and Plan (1) Pneumonia Assessment & Plan: continue IV antibiotics Followup culture and sensitivity BiPAP IV antibiotics IV steroids Status: Acute (2) Shortness of breath Status: Acute
[2017-01-26 10:15] LABS: PHOSPHOROUS 2.2 mg/dL (2.5-4.5)
[2017-01-26] MEDS: Potassium & Sodium Phosphate PO SCH ×3 (12:15→18:37)
[2017-01-26] MEDS: Sodium Chloride 0.9% 1,000 ML IV SCH (14:21)
--- NOTE | 2017-01-26 15:56 | CP.PCM.PN ---
Subjective - Date & Time of Evaluation Date of Evaluation: 01/26/17 Time of Evaluation: 08:00 - Subjective Subjective: 76-year-old female with history of lung cancer status post lobectomy 3 years ago , metastatic breast cancer with mets to brain and lungs admitted with shortness of breath and cough, patient being treated for postobstructive pneumonia Objective - Vital Signs/Intake and Output Vital Signs (last 24 hours): Temp Pulse Resp BP Pulse Ox 97.8 F 79 20 112/73 96 01/26/17 15:40 01/26/17 15:40 01/26/17 15:40 01/26/17 15:40 01/26/17 15:40 Intake and Output: 01/26/17 01/26/17 06:59 18:59 Intake Total 280 Balance 280 - Medications Medications: Current Medications Acetaminophen (Tylenol 325mg Tab) 650 mg PO Q6 PRN PRN Reason: Pain, Mild (1-3) Albuterol/Ipratropium (Duoneb 3 Mg/0.5 Mg (3 Ml) Ud) 3 ml INH RQ6 [facility] Last Admin: 01/26/17 13:41 Dose: 3 ml Famotidine (Pepcid) 20 mg PO BID [facility] Last Admin: 01/26/17 10:08 Dose: 20 mg Heparin Sodium (Porcine) (Heparin) 5,000 units SC Q8 [facility] Last Admin: 01/26/17 13:53 Dose: 5,000 units Vancomycin/Sodium Chloride (Vancomycin 1 Gm/Ns 200 Ml) 1 gm in 200 mls @ 133 mls/hr IVPB Q12H [facility] Stop: 01/30/17 17:01 Last Admin: 01/26/17 06:14 Dose: 133 mls/hr Sodium Chloride (Sodium Chloride 0.9%) 1,000 mls @ 40 mls/hr IV .Q24H [facility] Last Admin: 01/26/17 14:21 Dose: Not Given Meropenem 1 gm/ Sodium (Chloride) 100 mls @ 100 mls/hr IVPB Q8H [facility] Last Admin: 01/26/17 10:10 Dose: 100 mls/hr Insulin Human Regular (Novolin R) 0 unit SC ACHS MARCELINA PRN Reason: Protocol Last Admin: 01/26/17 11:31 Dose: 3 unit Methylprednisolone (Solu-Medrol) 40 mg IV Q8 [facility] Last Admin: 01/26/17 13:54 Dose: 40 mg Potassium Phos/Sodium Phos (Neutra-Phos) 1 pkt PO TID [facility]INA Stop: 01/27/17 11:31 Last Admin: 01/26/17 14:05 Dose: 1 pkt - Labs Labs: 01/26/17 07:39 01/26/17 07:39 Assessment and Plan (1) Diabetes Status: Acute (2) History of UTI Status: Acute (3) Pleural effusion Status: Acute (4) Pneumonia Status: Acute (5) Shortness of breath Status: Acute
--- NOTE | 2017-01-26 16:09 | CP.PCM.PN ---
<HennaIgnacia - Last Filed: 01/26/17 16:06> Subjective - Date & Time of Evaluation Date of Evaluation: 01/26/17 Time of Evaluation: 10:00 - Subjective Subjective: Medicine Note for Hospitalist Service - Dr. Priyank Jovel Patient was seen and examined at bedside. Patient reports her breathing has improved with the BiPAP in place. Denied fever, chills, headache, chest pain, SOB, abdominal pain, n/v/d/c, or urinary symptoms. Objective - Vital Signs/Intake and Output Vital Signs (last 24 hours): Temp Pulse Resp BP Pulse Ox 97.8 F 79 20 112/73 96 01/26/17 15:40 01/26/17 15:40 01/26/17 15:40 01/26/17 15:40 01/26/17 15:40 Intake and Output: 01/26/17 01/26/17 06:59 18:59 Intake Total 280 Balance 280 - Medications Medications: Current Medications Acetaminophen (Tylenol 325mg Tab) 650 mg PO Q6 PRN PRN Reason: Pain, Mild (1-3) Albuterol/Ipratropium (Duoneb 3 Mg/0.5 Mg (3 Ml) Ud) 3 ml INH RQ6 [facility] Last Admin: 01/26/17 13:41 Dose: 3 ml Famotidine (Pepcid) 20 mg PO BID [facility] Last Admin: 01/26/17 10:08 Dose: 20 mg Heparin Sodium (Porcine) (Heparin) 5,000 units SC Q8 [facility] Last Admin: 01/26/17 13:53 Dose: 5,000 units Vancomycin/Sodium Chloride (Vancomycin 1 Gm/Ns 200 Ml) 1 gm in 200 mls @ 133 mls/hr IVPB Q12H [facility] Stop: 01/30/17 17:01 Last Admin: 01/26/17 16:01 Dose: 133 mls/hr Sodium Chloride (Sodium Chloride 0.9%) 1,000 mls @ 40 mls/hr IV .Q24H [facility] Last Admin: 01/26/17 14:21 Dose: Not Given Meropenem 1 gm/ Sodium (Chloride) 100 mls @ 100 mls/hr IVPB Q8H [facility] Last Admin: 01/26/17 10:10 Dose: 100 mls/hr Insulin Human Regular (Novolin R) 0 unit SC ACHS [facility] PRN Reason: Protocol Last Admin: 01/26/17 11:31 Dose: 3 unit Methylprednisolone (Solu-Medrol) 40 mg IV Q8 [facility] Last Admin: 01/26/17 13:54 Dose: 40 mg Potassium Phos/Sodium Phos (Neutra-Phos) 1 pkt PO TID [facility] Stop: 01/27/17 11:31 Last Admin: 01/26/17 14:05 Dose: 1 pkt - Labs Labs: 01/26/17 07:39 01/26/17 07:39 - Additional Findings Additional findings: - Head Exam Head Exam: ATRAUMATIC, NORMOCEPHALIC - Eye Exam Eye Exam: EOMI, PERRL (sluggish) - ENT Exam ENT Exam: Mucous Membranes Dry - Respiratory Exam Respiratory Exam: Rhonchi (B/L). absent: Clear to Auscultation Bilateral, Wheezes, Stridor, NORMAL BREATHING PATTERN - Cardiovascular Exam Cardiovascular Exam: Tachycardia, REGULAR RHYTHM, +S1, +S2 Additional comments: Chemotherapy port on left upper chest - GI/Abdominal Exam GI & Abdominal Exam: Distended, Normal Bowel Sounds, Soft. absent: Guarding, Mass, Tenderness - Extremities Exam Extremities exam: Positive for: pedal edema (1+ pitting edema extending frpm knees to feet b/l), pedal pulses present. Negative for: tenderness - Neurological Exam Neurological exam: Alert, Oriented x3 - Psychiatric Exam Psychiatric exam: Normal Affect, Normal Mood - Skin Skin Exam: Dry, Intact, Normal Color, Warm Additional comments: Bilateral mastectomy scars Assessment and Plan - Assessment and Plan (Free Text) Plan: Pleural effusion Shortness of breath Assessment and Plan: Pulmonology consulted, Dr. John, help appreciated - suspects more infectious process * Chest xray: Interval right upper lobe collapse -endobronchial and or surrounding extrinsic compressive causative lesion suspect. * Chest CT: Evidence of partial left lower lobectomy. Extensive opacification of the right upper lobe possibly represents soft tissue mass/malignant neoplasm , pneumonia, and/or postobstructive atelectasis. Correlate clinically. This finding is inseparable from the upper mediastinum and right hilum. The right upper lobe bronchus appears narrowed, possibly occluded. Suspect mucous or neoplasm within the distal right lower lobe bronchus. Small right pleural effusion which dependent consolidation. Numerous hypodense hepatic masses worrisome for metastases. Bilateral mastectomy. Mixed chondroid matrix lesion, right humerus. This may represent enchondroma or chondrosarcoma in the proper clinical setting. Partially imaged L2 compression fracture deformity. * Blood cx: f/u results * Sputum Cx: f/u results * Influenza A/B: f/u results Medications: * Continue BiPAP * Zosyn 3.375mg IV Q6 * Vancomycin 1gm IV Q12 * Cefepime 1gm IV Q12 Anemia Assessment and Plan: Hemoglobin on admission: 10.4 This morning 8.6 Patient will be transfused 1 unit PRBCs today Monitor Diabetes Assessment and Plan: Patient reports having a history of DM and taking medication for DM; however doesnt know name. Called patient's pharmacy, [facility] ([phone]) for list of medications. ISS (moderate) Continue to monitor ACHS A1c: 8.6 Hypertension Assessment and Plan: Patient reports a history of HTN. Called patient's pharmacy, [facility] ) for list of medications. Blood pressure has been within normal range, stable since admission. Will continue to monitor vitals. History of thyroid disease Assessment and Plan: Patient reports having history of thyroid disease, but does not know which type and does not take medications. TSH,T4: WNL History of UTI Assessment and Plan: Patient was recently treated at [facility] for multidrug resistant UTI. UA: WNL Urine cx: f/u results ID consulted, Dr. Cook, help appreciated Prophylactic measure Assessment and Plan: SCDs, Heparin 5000units SC Q8h Pepcid 20mg PO BID Consistent carb/heart health 2Na diet DW Henna Arshad DO, PGY-1 <Christian Jovel H - Last Filed: 01/26/17 17:10> Objective - Vital Signs/Intake and Output Vital Signs (last 24 hours): Temp Pulse Resp BP Pulse Ox 97.8 F 79 20 112/73 96 01/26/17 15:40 01/26/17 15:40 01/26/17 15:40 01/26/17 15:40 01/26/17 15:40 Intake and Output: 01/26/17 01/26/17 06:59 18:59 Intake Total 280 Balance 280 - Medications Medications: Current Medications Acetaminophen (Tylenol 325mg Tab) 650 mg PO Q6 PRN PRN Reason: Pain, Mild (1-3) Albuterol/Ipratropium (Duoneb 3 Mg/0.5 Mg (3 Ml) Ud) 3 ml INH RQ6 [facility] Last Admin: 01/26/17 13:41 Dose: 3 ml Apixaban (Eliquis) 5 mg PO DAILY [facility] Famotidine (Pepcid) 20 mg PO BID [facility] Last Admin: 01/26/17 10:08 Dose: 20 mg Heparin Sodium (Porcine) (Heparin) 5,000 units SC Q8 [facility] Last Admin: 01/26/17 13:53 Dose: 5,000 units Vancomycin/Sodium Chloride (Vancomycin 1 Gm/Ns 200 Ml) 1 gm in 200 mls @ 133 mls/hr IVPB Q12H [facility] Stop: 01/30/17 17:01 Last Admin: 01/26/17 16:01 Dose: 133 mls/hr Sodium Chloride (Sodium Chloride 0.9%) 1,000 mls @ 40 mls/hr IV .Q24H [facility] Last Admin: 01/26/17 14:21 Dose: Not Given Meropenem 1 gm/ Sodium (Chloride) 100 mls @ 100 mls/hr IVPB Q8H [facility] Last Admin: 01/26/17 10:10 Dose: 100 mls/hr Insulin Human Regular (Novolin R) 0 unit SC ACHS [facility] PRN Reason: Protocol Levetiracetam (Keppra) 500 mg PO BID [facility] Methylprednisolone (Solu-Medrol) 40 mg IV Q8 [facility] Last Admin: 01/26/17 13:54 Dose: 40 mg Potassium Phos/Sodium Phos (Neutra-Phos) 1 pkt PO TID [facility] Stop: 01/27/17 11:31 Last Admin: 01/26/17 14:05 Dose: 1 pkt - Labs Labs: 01/26/17 07:39 01/26/17 07:39 Attending/Attestation - Attestation I have personally seen and examined this patient.: Yes I have fully participated in the care of the patient.: Yes I have reviewed all pertinent clinical information, including history, physical exam and plan: Yes Notes (Text): Medical attending: Patient was seen and examined by me, agrees the above note by medical practice administrator. I spoke with the patient's son who works in the hospital [facility] he was able to give us a lot more information about the patient's recent medical history. She is getting chemotherapy recently with a Dr. Castaneda - hematology/oncologist [phone]. She still has a lot of bandemia as well as a left shift on review of lab work, infectious disease has changed her antibiotics from vancomycin and cefepime over to vancomycin and Mepron. Were still pending on the blood cultures as well as urine cultures. This being said the urine analysis looked ok. The patient explains that while at [place] she was also being treated for infection there as well. Most concerning is the the son explains to me that there is a history of pulmonary embolism discovered at [facility] as well as a DVT and that the patient is taking Eliquis 5mg daily. From what the patient's family member tells me they were considering a mechanical thrombectomy of the pulmonary embolism however he explains that they were concerned about her ejection fraction and therefore they decided to not do the thrombectomy. 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 Also her primary care physician recently took her off of blood pressure medication, they were Adele Vasques Cardizem. Review of her blood pressure today shows that it is not elevated so we'll not start any blood pressure medication She also takes Actos as well as glipizide for her diabetes however at this time with from my on insulin to be given. Thank you very much, Christian Jovel
[2017-01-26] MEDS ORDERED: (Novolin R) Insulin Human Regular 100 units/ml vial SC SCH (16:14)
[2017-01-26] MEDS ORDERED: Iodixanol 320 MG/ML 100 ML BOTTLE IV ONE (18:01)
--- NOTE | 2017-01-26 21:31 | CP.PCM.CON ---
History of Present Illness - History of Present Illness History of Present Illness: came to evaluate patient however she is asleep. chart reviewed events discussed with the patient's nurse. will plan for continued Eliquis. will return tomorrow for full consultation. Past Patient History - Past Social History Smoking Status: Never Smoked - CARDIAC Hx Hypertension: Yes - PULMONARY Hx Chronic Obstructive Pulmonary Disease (COPD): Yes - ENDOCRINE/METABOLIC Hx Hypothyroidism: Yes - HEMATOLOGICAL/ONCOLOGICAL Hx Anemia: Yes - MUSCULOSKELETAL/RHEUMATOLOGICAL Hx Falls: Yes (weakness from chemotherapy) - PSYCHIATRIC Hx Substance Use: No - SURGICAL HISTORY Hx Surgeries: Yes Hx Mastectomy: Yes Other/Comment: LT PORTOCATH. LUNG RESECTION - ANESTHESIA Hx Anesthesia: Yes Hx Anesthesia Reactions: No Meds Allergies/Adverse Reactions: Allergies Allergy/AdvReac Type Severity Reaction Status Date / Time No Known Allergies Allergy Verified 01/25/17 10:25 - Medications Medications: Current Medications Acetaminophen (Tylenol 325mg Tab) 650 mg PO Q6 PRN PRN Reason: Pain, Mild (1-3) Last Admin: 01/26/17 19:24 Dose: 650 mg Albuterol/Ipratropium (Duoneb 3 Mg/0.5 Mg (3 Ml) Ud) 3 ml INH RQ6 [facility] Last Admin: 01/26/17 19:31 Dose: 3 ml Apixaban (Eliquis) 5 mg PO BID [facility] Last Admin: 01/26/17 18:38 Dose: 5 mg Famotidine (Pepcid) 20 mg PO BID [facility] Last Admin: 01/26/17 18:37 Dose: 20 mg Vancomycin/Sodium Chloride (Vancomycin 1 Gm/Ns 200 Ml) 1 gm in 200 mls @ 133 mls/hr IVPB Q12H [facility] Stop: 01/30/17 17:01 Last Admin: 01/26/17 16:01 Dose: 133 mls/hr Sodium Chloride (Sodium Chloride 0.9%) 1,000 mls @ 40 mls/hr IV .Q24H [facility] Last Admin: 01/26/17 14:21 Dose: Not Given Meropenem 1 gm/ Sodium (Chloride) 100 mls @ 100 mls/hr IVPB Q8H [facility] Last Admin: 01/26/17 19:24 Dose: 100 mls/hr Insulin Human Regular (Novolin R) 0 unit SC ACHS [facility] PRN Reason: Protocol Last Admin: 01/26/17 18:38 Dose: 4 unit Levetiracetam (Keppra) 500 mg PO BID [facility] Last Admin: 01/26/17 18:37 Dose: 500 mg Methylprednisolone (Solu-Medrol) 40 mg IV Q8 [facility] Last Admin: 01/26/17 13:54 Dose: 40 mg Potassium Phos/Sodium Phos (Neutra-Phos) 1 pkt PO TID [facility] Stop: 01/27/17 11:31 Last Admin: 01/26/17 18:37 Dose: 1 pkt Results - Vital Signs Recent Vital Signs: Last Vital Signs Temp 97.8 F 01/26/17 15:40 Pulse 84 01/26/17 16:00 Resp 20 01/26/17 15:40 BP 112/73 01/26/17 15:40 Pulse Ox 96 01/26/17 15:40 - Labs Result Diagrams: 01/26/17 07:39 01/26/17 07:39 Labs: Laboratory Results - last 24 hr 01/25/17 01/25/17 01/25/17 21:46 21:54 22:00 WBC RBC Hgb Hct MCV MCH MCHC RDW Plt Count MPV Neut % (Auto) Lymph % (Auto) [place] % (Auto) Eos % (Auto) Baso % (Auto) Neut # Lymph # [place] # Eos # Baso # Neutrophils % (Manual) Band Neutrophils % Lymphocytes % (Manual) Monocytes % (Manual) Platelet Estimate Polychromasia Hypochromasia (manual) Anisocytosis (manual) Ovalocytes Sodium Potassium Chloride Carbon Dioxide Anion Gap BUN Creatinine Est GFR ( Amer) Est GFR (Non-Af Amer) POC Glucose (mg/dL) 307 H Random Glucose Calcium Phosphorus Magnesium Total Bilirubin AST ALT Alkaline Phosphatase Troponin I Total Protein Albumin Globulin Albumin/Globulin Ratio Thyroxine (T4) TSH 3rd Generation Urine Color Yellow Urine Clarity Clear Urine pH 6.0 Ur Specific [place] 1.021 Urine Protein Negative Urine Glucose (UA) 3+ H Urine Ketones 1+ H Urine Blood Negative Urine Nitrate Negative Urine Bilirubin Negative Urine Urobilinogen 2.0 H Ur Leukocyte Esterase Neg Urine WBC (Auto) 1 Urine RBC (Auto) < 1 Influenza Typ A,B (EIA) Negative for flu a/b Blood Type Blood Type Confirm Antibody Screen 01/26/17 01/26/17 01/26/17 06:18 07:39 07:39 WBC 9.3 RBC 3.03 L Hgb 8.6 L Hct 26.5 L MCV 87.6 MCH 28.4 MCHC 32.4 L RDW 16.9 H Plt Count 273 D MPV 7.6 Neut % (Auto) 93.8 H Lymph % (Auto) 5.3 L [place] % (Auto) 0.7 Eos % (Auto) 0.0 Baso % (Auto) 0.2 Neut # 8.7 H Lymph # 0.5 L [place] # 0.1 Eos # 0.0 Baso # 0.0 Neutrophils % (Manual) 64 Band Neutrophils % 26 H* Lymphocytes % (Manual) 10 L Monocytes % (Manual) TEST NOT PERFORMED Platelet Estimate Normal Polychromasia Slight Hypochromasia (manual) Slight Anisocytosis (manual) Slight Ovalocytes Slight Sodium 133 Potassium 3.6 Chloride 102 Carbon Dioxide 28 Anion Gap 7 L BUN 9 Creatinine 0.4 L Est GFR ( Amer) > 60 Est GFR (Non-Af Amer) > 60 POC Glucose (mg/dL) 257 H Random Glucose 237 H Calcium 7.2 L Phosphorus 2.2 L Magnesium 2.0 Total Bilirubin 1.0 AST 19 ALT 38 Alkaline Phosphatase 62 Troponin I Total Protein 6.7 Albumin 3.0 L Globulin 3.7 Albumin/Globulin Ratio 0.8 L Thyroxine (T4) 7.16 TSH 3rd Generation 0.23 L Urine Color Urine Clarity Urine pH Ur Specific [place] Urine Protein Urine Glucose (UA) Urine Ketones Urine Blood Urine Nitrate Urine Bilirubin Urine Urobilinogen Ur Leukocyte Esterase Urine WBC (Auto) Urine RBC (Auto) Influenza Typ A,B (EIA) Blood Type Blood Type Confirm Antibody Screen 01/26/17 01/26/17 01/26/17 11:12 11:22 15:55 WBC RBC Hgb Hct MCV MCH MCHC RDW Plt Count MPV Neut % (Auto) Lymph % (Auto) [place] % (Auto) Eos % (Auto) Baso % (Auto) Neut # Lymph # [place] # Eos # Baso # Neutrophils % (Manual) Band Neutrophils % Lymphocytes % (Manual) Monocytes % (Manual) Platelet Estimate Polychromasia Hypochromasia (manual) Anisocytosis (manual) Ovalocytes Sodium Potassium Chloride Carbon Dioxide Anion Gap BUN Creatinine Est GFR ( Amer) Est GFR (Non-Af Amer) POC Glucose (mg/dL) 278 H 238 H Random Glucose Calcium Phosphorus Magnesium Total Bilirubin AST ALT Alkaline Phosphatase Troponin I Total Protein Albumin Globulin Albumin/Globulin Ratio Thyroxine (T4) TSH 3rd Generation Urine Color Urine Clarity Urine pH Ur Specific [place] Urine Protein Urine Glucose (UA) Urine Ketones Urine Blood Urine Nitrate Urine Bilirubin Urine Urobilinogen Ur Leukocyte Esterase Urine WBC (Auto) Urine RBC (Auto) Influenza Typ A,B (EIA) Blood Type A POSITIVE Blood Type Confirm A POSITIVE Antibody Screen Negative 01/26/17 20:26 WBC RBC Hgb Hct MCV MCH MCHC RDW Plt Count MPV Neut % (Auto) Lymph % (Auto) [place] % (Auto) Eos % (Auto) Baso % (Auto) Neut # Lymph # [place] # Eos # Baso # Neutrophils % (Manual) Band Neutrophils % Lymphocytes % (Manual) Monocytes % (Manual) Platelet Estimate Polychromasia Hypochromasia (manual) Anisocytosis (manual) Ovalocytes Sodium Potassium Chloride Carbon Dioxide Anion Gap BUN Creatinine Est GFR ( Amer) Est GFR (Non-Af Amer) POC Glucose (mg/dL) Random Glucose Calcium Phosphorus Magnesium Total Bilirubin AST ALT Alkaline Phosphatase Troponin I < 0.0120 Total Protein Albumin Globulin Albumin/Globulin Ratio Thyroxine (T4) TSH 3rd Generation Urine Color Urine Clarity Urine pH Ur Specific [place] Urine Protein Urine Glucose (UA) Urine Ketones Urine Blood Urine Nitrate Urine Bilirubin Urine Urobilinogen Ur Leukocyte Esterase Urine WBC (Auto) Urine RBC (Auto) Influenza Typ A,B (EIA) Blood Type Blood Type Confirm Antibody Screen
--- NOTE | 2017-01-26 22:05 | CP.PCM.CON ---
History of Present Illness - History of Present Illness History of Present Illness: 76 year old female with a history of lung cancer s/p lobectomy, stage IV breast cancer with lung and brain metastasis s/p brain radiotherapy on chemotherapy ( last given this week), admitted with pneumonia. The patient recently signed out AMA while being treated with a MDR UTI. Since then she has become more fatigued and having cough and subjective fevers. Her family reports she is doing well overall on chemotherapy which she received at [facility]. Past medical history: Lung cancer s/p lobectomy, stage IV breast cancer Past surgical history: lung lobectomy, , portacath Family history: Denies hematologic and oncologic problems Social history: Denies tobacco, alcohol, and illicit drug use. Allergies: NKA Review of systems: All remaining review of systems including HEENT, cardiovascular, respiratory, gastrointestinal, genitourinary, musculoskeletal, dermatologic, neurologic, and psychiatric are negative unless mentioned in the HPI. Past Patient History - Past Social History Smoking Status: Never Smoked - CARDIAC Hx Hypertension: Yes - PULMONARY Hx Chronic Obstructive Pulmonary Disease (COPD): Yes - ENDOCRINE/METABOLIC Hx Hypothyroidism: Yes - HEMATOLOGICAL/ONCOLOGICAL Hx Anemia: Yes - MUSCULOSKELETAL/RHEUMATOLOGICAL Hx Falls: Yes (weakness from chemotherapy) - PSYCHIATRIC Hx Substance Use: No - SURGICAL HISTORY Hx Surgeries: Yes Hx Mastectomy: Yes Other/Comment: LT PORTOCATH. LUNG RESECTION - ANESTHESIA Hx Anesthesia: Yes Hx Anesthesia Reactions: No Meds Allergies/Adverse Reactions: Allergies Allergy/AdvReac Type Severity Reaction Status Date / Time No Known Allergies Allergy Verified 01/25/17 10:25 - Medications Medications: Current Medications Acetaminophen (Tylenol 325mg Tab) 650 mg PO Q6 PRN PRN Reason: Pain, Mild (1-3) Last Admin: 01/26/17 19:24 Dose: 650 mg Albuterol/Ipratropium (Duoneb 3 Mg/0.5 Mg (3 Ml) Ud) 3 ml INH RQ6 [facility] Last Admin: 01/26/17 19:31 Dose: 3 ml Apixaban (Eliquis) 5 mg PO BID [facility] Last Admin: 01/26/17 18:38 Dose: 5 mg Famotidine (Pepcid) 20 mg PO BID [facility] Last Admin: 01/26/17 18:37 Dose: 20 mg Vancomycin/Sodium Chloride (Vancomycin 1 Gm/Ns 200 Ml) 1 gm in 200 mls @ 133 mls/hr IVPB Q12H [facility] Stop: 01/30/17 17:01 Last Admin: 01/26/17 16:01 Dose: 133 mls/hr Sodium Chloride (Sodium Chloride 0.9%) 1,000 mls @ 40 mls/hr IV .Q24H [facility] Last Admin: 01/26/17 14:21 Dose: Not Given Meropenem 1 gm/ Sodium (Chloride) 100 mls @ 100 mls/hr IVPB Q8H [facility] Last Admin: 01/26/17 19:24 Dose: 100 mls/hr Insulin Human Regular (Novolin R) 0 unit SC ACHS [facility] PRN Reason: Protocol Last Admin: 01/26/17 18:38 Dose: 4 unit Levetiracetam (Keppra) 500 mg PO BID [facility] Last Admin: 01/26/17 18:37 Dose: 500 mg Methylprednisolone (Solu-Medrol) 40 mg IV Q8 [facility] Last Admin: 01/26/17 13:54 Dose: 40 mg Potassium Phos/Sodium Phos (Neutra-Phos) 1 pkt PO TID [facility] Stop: 01/27/17 11:31 Last Admin: 01/26/17 18:37 Dose: 1 pkt Physical Exam - Head Exam Head Exam: ATRAUMATIC - Eye Exam Eye Exam: Normal appearance - ENT Exam ENT Exam: Mucous Membranes Dry - Respiratory Exam Respiratory Exam: Decreased Breath Sounds - Cardiovascular Exam Cardiovascular Exam: +S1, +S2 - GI/Abdominal Exam GI & Abdominal Exam: Normal Bowel Sounds Results - Vital Signs Recent Vital Signs: Last Vital Signs Temp 98.2 F 01/26/17 21:50 Pulse 68 01/26/17 21:50 Resp 20 01/26/17 21:50 BP 116/68 01/26/17 21:50 Pulse Ox 95 01/26/17 21:50 - Labs Result Diagrams: 01/26/17 07:39 01/26/17 07:39 Labs: Laboratory Results - last 24 hr 01/25/17 01/25/17 01/26/17 21:54 22:00 06:18 WBC RBC Hgb Hct MCV MCH MCHC RDW Plt Count MPV Neut % (Auto) Lymph % (Auto) [place] % (Auto) Eos % (Auto) Baso % (Auto) Neut # Lymph # [place] # Eos # Baso # Neutrophils % (Manual) Band Neutrophils % Lymphocytes % (Manual) Monocytes % (Manual) Platelet Estimate Polychromasia Hypochromasia (manual) Anisocytosis (manual) Ovalocytes Sodium Potassium Chloride Carbon Dioxide Anion Gap BUN Creatinine Est GFR ( Amer) Est GFR (Non-Af Amer) POC Glucose (mg/dL) 257 H Random Glucose Calcium Phosphorus Magnesium Total Bilirubin AST ALT Alkaline Phosphatase Troponin I Total Protein Albumin Globulin Albumin/Globulin Ratio Thyroxine (T4) TSH 3rd Generation Urine Color Yellow Urine Clarity Clear Urine pH 6.0 Ur Specific [place] 1.021 Urine Protein Negative Urine Glucose (UA) 3+ H Urine Ketones 1+ H Urine Blood Negative Urine Nitrate Negative Urine Bilirubin Negative Urine Urobilinogen 2.0 H Ur Leukocyte Esterase Neg Urine WBC (Auto) 1 Urine RBC (Auto) < 1 Influenza Typ A,B (EIA) Negative for flu a/b Blood Type Blood Type Confirm Antibody Screen 01/26/17 01/26/17 01/26/17 07:39 07:39 11:12 WBC 9.3 RBC 3.03 L Hgb 8.6 L Hct 26.5 L MCV 87.6 MCH 28.4 MCHC 32.4 L RDW 16.9 H Plt Count 273 D MPV 7.6 Neut % (Auto) 93.8 H Lymph % (Auto) 5.3 L [place] % (Auto) 0.7 Eos % (Auto) 0.0 Baso % (Auto) 0.2 Neut # 8.7 H Lymph # 0.5 L [place] # 0.1 Eos # 0.0 Baso # 0.0 Neutrophils % (Manual) 64 Band Neutrophils % 26 H* Lymphocytes % (Manual) 10 L Monocytes % (Manual) TEST NOT PERFORMED Platelet Estimate Normal Polychromasia Slight Hypochromasia (manual) Slight Anisocytosis (manual) Slight Ovalocytes Slight Sodium 133 Potassium 3.6 Chloride 102 Carbon Dioxide 28 Anion Gap 7 L BUN 9 Creatinine 0.4 L Est GFR ( Amer) > 60 Est GFR (Non-Af Amer) > 60 POC Glucose (mg/dL) 278 H Random Glucose 237 H Calcium 7.2 L Phosphorus 2.2 L Magnesium 2.0 Total Bilirubin 1.0 AST 19 ALT 38 Alkaline Phosphatase 62 Troponin I Total Protein 6.7 Albumin 3.0 L Globulin 3.7 Albumin/Globulin Ratio 0.8 L Thyroxine (T4) 7.16 TSH 3rd Generation 0.23 L Urine Color Urine Clarity Urine pH Ur Specific [place] Urine Protein Urine Glucose (UA) Urine Ketones Urine Blood Urine Nitrate Urine Bilirubin Urine Urobilinogen Ur Leukocyte Esterase Urine WBC (Auto) Urine RBC (Auto) Influenza Typ A,B (EIA) Blood Type Blood Type Confirm Antibody Screen 01/26/17 01/26/17 01/26/17 11:22 15:55 20:26 WBC RBC Hgb Hct MCV MCH MCHC RDW Plt Count MPV Neut % (Auto) Lymph % (Auto) [place] % (Auto) Eos % (Auto) Baso % (Auto) Neut # Lymph # [place] # Eos # Baso # Neutrophils % (Manual) Band Neutrophils % Lymphocytes % (Manual) Monocytes % (Manual) Platelet Estimate Polychromasia Hypochromasia (manual) Anisocytosis (manual) Ovalocytes Sodium Potassium Chloride Carbon Dioxide Anion Gap BUN Creatinine Est GFR ( Amer) Est GFR (Non-Af Amer) POC Glucose (mg/dL) 238 H Random Glucose Calcium Phosphorus Magnesium Total Bilirubin AST ALT Alkaline Phosphatase Troponin I < 0.0120 Total Protein Albumin Globulin Albumin/Globulin Ratio Thyroxine (T4) TSH 3rd Generation Urine Color Urine Clarity Urine pH Ur Specific [place] Urine Protein Urine Glucose (UA) Urine Ketones Urine Blood Urine Nitrate Urine Bilirubin Urine Urobilinogen Ur Leukocyte Esterase Urine WBC (Auto) Urine RBC (Auto) Influenza Typ A,B (EIA) Blood Type A POSITIVE Blood Type Confirm A POSITIVE Antibody Screen Negative Assessment & Plan (1) Breast cancer Assessment and Plan: brain, lung, liver, ?bone mets s/p brain radiotherapy on outpatient chemotherapy at [facility] discussed with pts family the importance of completing her full antibiotic course before resuming her chemotherapy with her primary oncologist Status: Acute (2) Anemia Assessment and Plan: likely chronic disease and chemotherapy effect transfusion support if hgb < 7 Thank you for this interesting consult. Status: Acute
[2017-01-27] MEDS: Albuterol-Ipratrop 3 mg / 0.5 (3 ml) UD INH SCH ×4 (02:04→20:07)
[2017-01-27] MEDS: Meropenem 1 GM in Sodium Chloride 0.9% 100 ML IVPB SCH ×3 (03:20→18:59)
[2017-01-27] MEDS: Vancomycin 1 gm/NS 200 ml 1 GM/200 ML BAG IVPB SCH ×2 (04:14→18:58)
[2017-01-27] MEDS: MethylPREDNISolone 40 mg Vial IV SCH ×3 (06:13→21:23)
[2017-01-27 07:30] LABS: BASO % 0.1 % (0.0-2.0); HEMATOCRIT 27.9 % (34.0-47.0); LYMPH # 0.4 K/uL (1.0-4.3); MEAN CELL VOLUME 88.7 fL (81.0-99.0); MEAN CORPUSCULAR HEMOGLOBIN 29.4 pg (27.0-31.0); MEAN CORPUSCULAR HGB CONC 33.1 g/dL (33.0-37.0); MEAN PLATELET VOLUME 7.8 fL (7.2-11.7); MONO # 0.2 K/uL (0.0-0.8); MONO % 1.6 % (0.0-10.0); PLATELET COUNT 322 K/uL (130-400); RED CELL DISTRIBUTION WIDTH 16.8 % (11.5-14.5); WHITE BLOOD COUNT 11.1 K/uL (4.8-10.8)
[2017-01-27 07:41] LABS: ALB/GLOB RATIO 0.8 (1.0-2.1); ALKALINE PHOSPHATASE 69 U/L (38-126); ALT/SGPT 37 U/L (9-52); AST/SGOT 14 U/L (14-36); BILIRUBIN,TOTAL 0.8 mg/dL (0.2-1.3); BLOOD UREA NITROGEN 11 mg/dL (7-17); CALCIUM 7.3 mg/dl (8.6-10.4); CARBON DIOXIDE 28 mmol/L (22-30); CHLORIDE 106 mmol/L (98-107); GFR AFRICAN-AMERICAN > 60; GLUCOSE,RANDOM 261 mg/dL (65-105); MAGNESIUM 2.2 mg/dL (1.6-2.3); PHOSPHOROUS 1.8 mg/dL (2.5-4.5); POTASSIUM 3.4 mmol/L (3.6-5.2); SODIUM 139 mmol/L (132-148); TOTAL PROTEIN 6.3 g/dL (6.3-8.3)
--- NOTE | 2017-01-27 08:04 | CT ---
CT chest pulmonary angiogram History: Metastatic disease. Chest wall pain. Comparison: CT chest dated 01/25/2017 Technique: Axial computed tomographic images of the chest were performed with intravenous contrast utilizing pulmonary embolism protocol. Subsequently, sagittal and coronal reformatted images were obtained. Additionally, sagittal and coronal MIP reformatted images were obtained. This CT exam was performed using one or more of the following dose reduction techniques: Automated exposure control, adjustment of the mA and/or kV according to patient size, and/or use of iterative reconstruction technique. Findings: No evidence of acute pulmonary embolism. Visualized aorta is grossly preserved. Mild calcification and plaque noted within the aorta. Again identified are prominent consolidative changes in the posterior aspect of the right upper lobe which may represent underlying infiltrate. Milder consolidative changes seen within the posterior and medial aspect of the right middle lobe. Additional mild consolidative changes seen within the medial aspect of the right lower lobe. Mild atelectatic changes in the left lung. No significant axillary adenopathy. Heterogeneous thyroid gland with a diminutive left thyroid lobe. No significant pre-vascular lymph nodes noted. No significant hilar adenopathy. Small hiatal hernia. Caps Small right pleural effusion with adjacent atelectasis. Debris and thickening of the right mainstem bronchus, the upper lobe bronchus, and the bronchus intermedius. Coronary arterial calcifications. Degenerative changes in the osseous structures. Numerous hepatic hypodense masses most consistent with metastatic disease. Impression: No pulmonary embolism. Consolidation in the posterior aspect of the right upper lobe which may represent an infiltrate/pneumonia. Underlying mass is not evident at this time although this is not entirely excluded particularly given the known probable metastatic liver findings. Short-term follow-up imaging post therapy is recommended. Small right pleural effusion with adjacent atelectasis. Debris and thickening of the right mainstem bronchus, the upper lobe bronchus, and the bronchus intermedius. Numerous hepatic hypodense masses most consistent with metastatic disease. These findings were preliminarily reported at 9:04 p.m. on 01/26/[address] Joselito Alexander from [employer].
--- NOTE | 2017-01-27 09:10 | CP.PCM.PN ---
Subjective - Date & Time of Evaluation Date of Evaluation: 01/27/17 Time of Evaluation: 08:45 - Subjective Subjective: Earlier this morning the patient was very agitated and trying to get out of bed. She is now with 1 to 1 observation and also video monitoring By the time I came and saw here this morning she was very calm and cooperative with me during the exam. She has a poor appetite. She denied having chest pain and denied palpitations, and reported her breathing was better - however the staff explain that earlier in the morning she did report very minor chest pain to them. The floor staff have mentioned she seems very forgetful and also at times seem to wax and wane. The impregnating machine operator shows NSR in the 100s. Overnight was in the 80s also NSR. There are some episodes of her HR in the 120s Yesterday I spoke with her son René, who also works here at [facility] radiology, and also with daughter Tatianna. They explained to me that she was at [place] and while there also had a DVT and PE. They considered mechanical thrombolysis however could not they were told due to her heart function. Does not have an IVC filter. She was placed on Eliquis 5 BID which I restarted last night. Also a repeat CTA with PE protocol was done and this report does not suggest a PE at this time. Still pending the venous dopplers at this moment. Also pending the blood cultures as well. Pending sputum cultures. She remains on IV abx Objective - Vital Signs/Intake and Output Vital Signs (last 24 hours): Temp Pulse Resp BP Pulse Ox 97.9 F 93 H 20 136/82 100 01/27/17 04:05 01/27/17 08:00 01/27/17 04:05 01/27/17 04:05 01/27/17 04:05 Intake and Output: 01/27/17 01/27/17 06:59 18:59 Intake Total 425 485 Balance 425 485 - Medications Medications: Current Medications Acetaminophen (Tylenol 325mg Tab) 650 mg PO Q6 PRN PRN Reason: Pain, Mild (1-3) Last Admin: 01/26/17 19:24 Dose: 650 mg Albuterol/Ipratropium (Duoneb 3 Mg/0.5 Mg (3 Ml) Ud) 3 ml INH RQ6 [facility] Last Admin: 01/27/17 07:17 Dose: 3 ml Apixaban (Eliquis) 5 mg PO BID [facility] Last Admin: 01/26/17 18:38 Dose: 5 mg Famotidine (Pepcid) 20 mg PO BID [facility] Last Admin: 01/26/17 18:37 Dose: 20 mg Vancomycin/Sodium Chloride (Vancomycin 1 Gm/Ns 200 Ml) 1 gm in 200 mls @ 133 mls/hr IVPB Q12H [facility] Stop: 01/30/17 17:01 Last Admin: 01/27/17 04:14 Dose: 133 mls/hr Sodium Chloride (Sodium Chloride 0.9%) 1,000 mls @ 40 mls/hr IV .Q24H [facility] Last Admin: 01/26/17 14:21 Dose: Not Given Meropenem 1 gm/ Sodium (Chloride) 100 mls @ 100 mls/hr IVPB Q8H [facility] Last Admin: 01/27/17 03:20 Dose: 100 mls/hr Insulin Human Regular (Novolin R) 0 unit SC ACHS [facility] PRN Reason: Protocol Last Admin: 01/26/17 23:02 Dose: Not Given Levetiracetam (Keppra) 500 mg PO BID [facility] Last Admin: 01/26/17 18:37 Dose: 500 mg Methylprednisolone (Solu-Medrol) 40 mg IV Q8 [facility] Last Admin: 01/27/17 06:13 Dose: 40 mg Potassium Chloride (K-Dur 20 Meq Er Tab) 40 meq PO ONCE ONE Stop: 01/27/17 10:01 Potassium Phos/Sodium Phos (Neutra-Phos) 1 pkt PO TID [facility] Stop: 01/27/17 11:31 Last Admin: 01/26/17 18:37 Dose: 1 pkt - Labs Labs: 01/27/17 07:13 01/27/17 07:13 - Constitutional Appears: No Acute Distress, Confused, Cachectic, Chronically Ill - Head Exam Additional comments: no hair, bald head - she has been getting chemo - Eye Exam Eye Exam: EOMI, Normal appearance - ENT Exam ENT Exam: Mucous Membranes Moist - Respiratory Exam Respiratory Exam: Rales, Rhonchi, NORMAL BREATHING PATTERN Additional comments: Both sides a lot of rales and rhonchi. R > L No dullness to percussion. - Cardiovascular Exam Cardiovascular Exam: REGULAR RHYTHM - GI/Abdominal Exam GI & Abdominal Exam: Soft, Normal Bowel Sounds. absent: Distended, Firm, Guarding, Rigid, Tenderness - Neurological Exam Neurological Exam: Alert, Awake Neuro motor strength exam: Left Upper Extremity: 5, Right Upper Extremity: 5, Left Lower Extremity: 4, Right Lower Extremity: 4 Additional comments: She is almost AAO x 3, however waxes and wanes - Psychiatric Exam Psychiatric exam: Normal Affect, Normal Mood - Skin Skin Exam: Normal Color, Warm Assessment and Plan - Assessment and Plan (Free Text) Assessment: Pneumonia, sepsis, and shortness of breath - Consolidation in the right upper lobe. 01/27: Currently breathing is better this morning. A repeat CT was done to assess for PE as the family reported she had a PE and DVT at [facility]. This was negative for PE. At this time plan is to continue with IV abx. Pending blood and urine cultures at this time.Will need palliative consult as there is metastatic disease. Reorded the sputum cx as the previous one got canceled Day 2 of Vancomycin Day 1 of Mepron Chest xray: Interval right upper lobe collapse -endobronchial and or surrounding extrinsic compressive causative lesion suspect. Chest CT: Evidence of partial left lower lobectomy. Extensive opacification of the right upper lobe possibly represents soft tissue mass/malignant neoplasm, pneumonia, and/or postobstructive atelectasis. Correlate clinically. This finding is inseparable from the upper mediastinum and right hilum. The right upper lobe bronchus appears narrowed, possibly occluded. Suspect mucous or neoplasm within the distal right lower lobe bronchus. Small right pleural effusion which dependent consolidation. Numerous hypodense hepatic masses worrisome for metastases. Bilateral mastectomy. Mixed chondroid matrix lesion, right humerus. This may represent enchondroma or chondrosarcoma in the proper clinical setting. Partially imaged L2 compression fracture deformity. Pulmonary Embolism found three weeks ago 01/27: Restarted on Eliquis 5mg PO BID. Waiting on the venous dopplers. The repeat CTA was negative Monitor Hgb, if decreases then may need to discontinue or change to a heparin ggt. Anemia 01/27: Status post 1 unit of PRBC, and Hgb 9.2. She has been on Eliquis for DVT and PE. I explained to the family that will continue with Eliquis for now. However if becomes more anemic may need to discontinue or change to heparin ggt. Per family she has been getting chemotherapy Diabetes 01/27: At this time on SSI. Her home medications include glipizide as well as Actos Accuchecks have been in the 250 to 290 range. Will start some long acting probably tonight Hypertension 01/27: Holding off on HTN medications. Her home medications were Diovan History of thyroid disease Patient reports having history of thyroid disease, but does not know which type and does not take medications. TSH,T4: WNL History of UTI 01/27: Waiting on urine culture however the UA looks ok. Prophylactic measure SCDs, Heparin 5000units SC Q8h Pepcid 20mg PO BID Consistent carb/heart health 2Na diet
[2017-01-27 09:15] LABS: NEUTROPHIL 86 % (50-75); TOTAL CELLS COUNTED 100
[2017-01-27] MEDS: Potassium & Sodium Phosphate PO SCH (09:23)
[2017-01-27] MEDS: (Novolin R) Insulin Human Regular 100 units/ml vial SC SCH ×4 (09:24→21:24)
[2017-01-27] MEDS ORDERED: Potassium Chloride 20 mEq ER Tab PO ONE (10:00)
--- NOTE | 2017-01-27 12:19 | CP.PCM.PN ---
Subjective - Date & Time of Evaluation Date of Evaluation: 01/27/17 Time of Evaluation: 09:30 - Subjective Subjective: The patient seen and examined Periods of confusion Off BiPAP but no shortness of breath this morning Afebrile CT angio negative for pulmonary embolism History of PE and DVT For venous Doppler of lower extremities on anticoagulation Continue steroids and nebulizer treatment On antibiotics for pneumonia Check pro calcitonin level Objective - Vital Signs/Intake and Output Vital Signs (last 24 hours): Temp Pulse Resp BP Pulse Ox 98 F 93 H 20 109/61 98 01/27/17 07:00 01/27/17 08:00 01/27/17 07:00 01/27/17 07:00 01/27/17 07:00 Intake and Output: 01/27/17 01/27/17 06:59 18:59 Intake Total 425 485 Balance 425 485 - Medications Medications: Current Medications Acetaminophen (Tylenol 325mg Tab) 650 mg PO Q6 PRN PRN Reason: Pain, Mild (1-3) Last Admin: 01/26/17 19:24 Dose: 650 mg Albuterol/Ipratropium (Duoneb 3 Mg/0.5 Mg (3 Ml) Ud) 3 ml INH RQ6 [facility] Last Admin: 01/27/17 07:17 Dose: 3 ml Apixaban (Eliquis) 5 mg PO BID [facility] Last Admin: 01/27/17 09:24 Dose: 5 mg Famotidine (Pepcid) 20 mg PO BID [facility] Last Admin: 01/27/17 09:24 Dose: 20 mg Vancomycin/Sodium Chloride (Vancomycin 1 Gm/Ns 200 Ml) 1 gm in 200 mls @ 133 mls/hr IVPB Q12H [facility] Stop: 01/30/17 17:01 Last Admin: 01/27/17 04:14 Dose: 133 mls/hr Sodium Chloride (Sodium Chloride 0.9%) 1,000 mls @ 40 mls/hr IV .Q24H [facility] Last Admin: 01/26/17 14:21 Dose: Not Given Meropenem 1 gm/ Sodium (Chloride) 100 mls @ 100 mls/hr IVPB Q8H [facility] Last Admin: 01/27/17 10:10 Dose: 100 mls/hr Insulin Human Regular (Novolin R) 0 unit SC ACHS [facility] PRN Reason: Protocol Last Admin: 01/27/17 12:06 Dose: 8 unit Levetiracetam (Keppra) 500 mg PO BID [facility] Last Admin: 01/27/17 09:24 Dose: 500 mg Methylprednisolone (Solu-Medrol) 40 mg IV Q8 [facility] Last Admin: 01/27/17 06:13 Dose: 40 mg - Labs Labs: 01/27/17 07:13 01/27/17 07:13 Assessment and Plan (1) Pneumonia Status: Acute (2) Shortness of breath Status: Acute
--- NOTE | 2017-01-27 14:06 | CP.PCM.CON ---
History of Present Illness - History of Present Illness History of Present Illness: I was asked to evaluate patient by Dr Jovel. Patient is a 89 year old female with PMH HTN breast cancer, lung carcinoma who presents with dyspnea. She had a previous diagnosis of pulmonary embolism and was admitted to [facility]. She signed out AMA and now preports with dyspea and cough. The patient was previously on Eliquis. She is s/p CT angiogram, which reports no PE. She is dyspneic. Review of Systems - Constitutional Constitutional: Malaise, Weakness - EENT Eyes: absent: As Per HPI, Blind Spots, Blurred Vision, Change in Vision, Decreased Night Vision, Diplopia, Discharge, Dry Eye, Exophthalmos, Floaters, Irritation, Itchy Eyes, Loss of Peripheral Vision, Pain, Photophobia, Requires Corrective Lenses, Sees Flashes, Spots in Vision, Tunnel Vision, Other Visual Disturbances, Loss of Vision, Other Ears: absent: As Per HPI, Decreased Hearing, Ear Discharge, Ear Pain, Tinnitus, Abnormal Hearing, Disequilibrium, Dizziness, Other Nose/Mouth/Throat: absent: As Per HPI, Epistaxis, Nasal Congestion, Nasal Discharge, Nasal Obstruction, Nasal Trauma, Nose Pain, Post Nasal Drip, Sinus Pain, Sinus Pressure, Bleeding Gums, Change in Voice, Dental Pain, Dry Mouth, Dysphagia, Halitosis, Hoarsness, Lip Swelling, Mouth Lesions, Mouth Pain, Odynophagia, Sore Throat, Throat Swelling, Tongue Swelling, Facial Pain, Neck Pain, Neck Mass, Other - Breasts Breasts: absent: As Per HPI, Change in Shape, Mass, Pain, Nipple Discharge, Nipple Inversion, Skin Changes, Swelling, Other - Cardiovascular Cardiovascular: absent: As Per HPI, Acrocyanosis, Chest Pain, Chest Pain at Rest , Chest Pain with Activity, Claudication, Diaphoresis, Dyspnea, Dyspnea on Exertion, Edema, Irregular Heart Rhythm, Pain Radiating to Arm/Neck/Jaw, Leg Edema, Leg Ulcers, Lightheadedness, Orthopnea, Palpitations, Paroxysmal Nocturnal Dyspnea, Pedal Edema, Radiating Pain, Rapid Heart Rate, Slow Heart Rate, Syncope, Other - Respiratory Respiratory: Cough, Dyspnea, Dyspnea on Exertion - Gastrointestinal Gastrointestinal: absent: As Per HPI, Abdominal Pain, Belching, Bloating, Change in Bowel Habits, Change in Stool Character, Coffee Ground Emesis, Constipation, Cramping, Diarrhea, Dyspepsia, Dysphagia, Early Satiety, Excessive Flatus, Fecal Incontinence, Heartburn, Hematemesis, Hematochezia, Loose Stools, Melena, Nausea, Odynophagia, Temesmus, Vomiting, Other - Genitourinary Genitourinary: absent: As Per HPI, Change in Urinary Stream, Difficulty Urinating, Dysuria, Flank Pain, Hematuria, Pyuria, Nocturia, Urinary Incontinence, Urinary Frequency, Urinary Hesitance, Urinary Urgency, Voiding Freq/Small Amts, Freq UTI, Hx Renal/Bladder Calculi, Hx /Renal Surgery, Bladder Distension, Other - Musculoskeletal Musculoskeletal: absent: As Per HPI, Abnormal Gait, Arthralgias, Atrophy, Back Pain, Deformity, Joint Swelling, Limited Range of Motion, Loss of Height, Muscle Cramps, Muscle Weakness, Myalgias, Neck Pain, Numbness, Radiating Pain into Limb, Stiffness, Tingling, Other - Integumentary Integumentary: absent: As Per HPI, Acne, Alopecia, Bleeding Lesions, Change in Hair, Change in Nails, Change in Pigmentation, Changing Lesions, Dry Skin, Erythema, Furuncle, Hirsutism, Lesions, New Lesions, Non-Healing Lesions, Photosensitivity, Pruritus, Rash, Skin Pain, Skin Ulcer, Sores, Striae, Swelling , Unusual Bruising, Wounds, Jaundice, Other - Neurological Neurological: absent: As Per HPI, Abnormal Gait, Abnormal Hearing, Abnormal Movements, Abnormal Speech, Behavioral Changes, Burning Sensations, Confusion, Convulsions, Disequilibrium, Dizziness, Numbness, Focal Weakness, Frequent Falls , Headaches, Lack of Coordination, Loss of Vision, Memory Loss, Paresthesias, Radicular Pain, Restless Legs, Sensory Deficit, Syncope, Tingling, Tremor, Vertigo, Weakness, Other Visual Disturbances, Other - Psychiatric Psychiatric: absent: As Per HPI, Abnormal Sleep Pattern, Anhedonia, Anxiety, Auditory Hallucinations, Behavioral Changes, Change in Appetite, Change in Libido, Confusion, Depression, Difficulty Concentrating, Hallucinations, Homicidal Ideation, Hopelessness, Irritability, Memory Loss, Mood Swings, Panic Attacks, Paranoia, Suicidal Ideation, Visual Hallucinations, Tactile Hallucinations, Other - Endocrine Endocrine: absent: As Per HPI, Change in Body Appearance, Change in Libido, Cold Intolorance, Deepening of Voice, Excessive Sweating, Fatigue, Flushing, Heat Intolorance, Increase in Ring/Shoe/Hat Size, Palpitations, Polydipsia, Polyphagia, Polyuria, Other - Hematologic/Lymphatic Hematologic: absent: As Per HPI, Easy Bleeding, Easy Bruising, Lymphadenopathy, Other Past Patient History - Past Social History Smoking Status: Never Smoked - CARDIAC Hx Hypertension: Yes - PULMONARY Hx Chronic Obstructive Pulmonary Disease (COPD): Yes - ENDOCRINE/METABOLIC Hx Hypothyroidism: Yes - HEMATOLOGICAL/ONCOLOGICAL Hx Anemia: Yes - MUSCULOSKELETAL/RHEUMATOLOGICAL Hx Falls: Yes (weakness from chemotherapy) - PSYCHIATRIC Hx Substance Use: No - SURGICAL HISTORY Hx Surgeries: Yes Hx Mastectomy: Yes Other/Comment: LT PORTOCATH. LUNG RESECTION - ANESTHESIA Hx Anesthesia: Yes Hx Anesthesia Reactions: No Meds Allergies/Adverse Reactions: Allergies Allergy/AdvReac Type Severity Reaction Status Date / Time No Known Allergies Allergy Verified 01/25/17 10:25 - Medications Medications: Current Medications Acetaminophen (Tylenol 325mg Tab) 650 mg PO Q6 PRN PRN Reason: Pain, Mild (1-3) Last Admin: 01/26/17 19:24 Dose: 650 mg Albuterol/Ipratropium (Duoneb 3 Mg/0.5 Mg (3 Ml) Ud) 3 ml INH RQ6 [facility] Last Admin: 01/27/17 13:27 Dose: 3 ml Apixaban (Eliquis) 5 mg PO BID [facility] Last Admin: 01/27/17 09:24 Dose: 5 mg Famotidine (Pepcid) 20 mg PO BID [facility] Last Admin: 01/27/17 09:24 Dose: 20 mg Vancomycin/Sodium Chloride (Vancomycin 1 Gm/Ns 200 Ml) 1 gm in 200 mls @ 133 mls/hr IVPB Q12H [facility] Stop: 01/30/17 17:01 Last Admin: 01/27/17 04:14 Dose: 133 mls/hr Sodium Chloride (Sodium Chloride 0.9%) 1,000 mls @ 40 mls/hr IV .Q24H [facility] Last Admin: 01/26/17 14:21 Dose: Not Given Meropenem 1 gm/ Sodium (Chloride) 100 mls @ 100 mls/hr IVPB Q8H [facility] Last Admin: 01/27/17 10:10 Dose: 100 mls/hr Insulin Human Regular (Novolin R) 0 unit SC ACHS [facility] PRN Reason: Protocol Last Admin: 01/27/17 12:06 Dose: 8 unit Levetiracetam (Keppra) 500 mg PO BID [facility] Last Admin: 01/27/17 09:24 Dose: 500 mg Methylprednisolone (Solu-Medrol) 40 mg IV Q8 [facility] Last Admin: 01/27/17 13:30 Dose: 40 mg Physical Exam - Constitutional Appears: Chronically Ill - Head Exam Additional comments: alopecia - Eye Exam Eye Exam: Normal appearance - ENT Exam ENT Exam: Mucous Membranes Dry - Neck Exam Neck exam: Positive for: Full Rom - Respiratory Exam Respiratory Exam: Decreased Breath Sounds, Wheezes - Cardiovascular Exam Cardiovascular Exam: REGULAR RHYTHM - GI/Abdominal Exam GI & Abdominal Exam: Normal Bowel Sounds - Rectal Exam Rectal Exam: Deferred - Extremities Exam Extremities exam: Positive for: pedal edema - Back Exam Back exam: NORMAL INSPECTION - Neurological Exam Neurological exam: Alert - Psychiatric Exam Psychiatric exam: Depressed - Skin Skin Exam: Normal Color Results - Vital Signs Recent Vital Signs: Last Vital Signs Temp 98 F 01/27/17 07:00 Pulse 93 H 01/27/17 08:00 Resp 20 01/27/17 07:00 BP 109/61 01/27/17 07:00 Pulse Ox 98 01/27/17 07:00 - Labs Result Diagrams: 01/27/17 07:13 01/27/17 07:13 Labs: Laboratory Results - last 24 hr 01/26/17 01/26/17 01/26/17 11:22 15:55 20:26 WBC RBC Hgb Hct MCV MCH MCHC RDW Plt Count MPV Neut % (Auto) Lymph % (Auto) [place] % (Auto) Eos % (Auto) Baso % (Auto) Neut # Lymph # [place] # Eos # Baso # Neutrophils % (Manual) Band Neutrophils % Lymphocytes % (Manual) Monocytes % (Manual) Platelet Estimate Polychromasia Hypochromasia (manual) Anisocytosis (manual) Retic Count Sodium Potassium Chloride Carbon Dioxide Anion Gap BUN Creatinine Est GFR ( Amer) Est GFR (Non-Af Amer) POC Glucose (mg/dL) 238 H Random Glucose Calcium Phosphorus Magnesium Ferritin Total Bilirubin AST ALT Alkaline Phosphatase Troponin I < 0.0120 Total Protein Albumin Globulin Albumin/Globulin Ratio Vitamin B12 Folate Blood Type A POSITIVE Blood Type Confirm A POSITIVE Antibody Screen Negative 01/26/17 01/27/17 01/27/17 22:54 06:14 07:13 WBC 11.1 H RBC 3.14 L Hgb 9.2 L Hct 27.9 L MCV 88.7 MCH 29.4 MCHC 33.1 RDW 16.8 H Plt Count 322 MPV 7.8 Neut % (Auto) 94.3 H Lymph % (Auto) 4.0 L [place] % (Auto) 1.6 Eos % (Auto) 0.0 Baso % (Auto) 0.1 Neut # 10.4 H Lymph # 0.4 L [place] # 0.2 Eos # 0.0 Baso # 0.0 Neutrophils % (Manual) 86 H Band Neutrophils % 9 H Lymphocytes % (Manual) 4 L Monocytes % (Manual) 1 Platelet Estimate Normal Polychromasia Slight Hypochromasia (manual) Slight Anisocytosis (manual) Slight Retic Count Sodium Potassium Chloride Carbon Dioxide Anion Gap BUN Creatinine Est GFR ( Amer) Est GFR (Non-Af Amer) POC Glucose (mg/dL) 277 H 280 H Random Glucose Calcium Phosphorus Magnesium Ferritin Total Bilirubin AST ALT Alkaline Phosphatase Troponin I Total Protein Albumin Globulin Albumin/Globulin Ratio Vitamin B12 Folate Blood Type Blood Type Confirm Antibody Screen 01/27/17 01/27/17 01/27/17 07:13 07:13 11:45 WBC RBC Hgb Hct MCV MCH MCHC RDW Plt Count MPV Neut % (Auto) Lymph % (Auto) [place] % (Auto) Eos % (Auto) Baso % (Auto) Neut # Lymph # [place]gs # Eos # Baso # Neutrophils % (Manual) Band Neutrophils % Lymphocytes % (Manual) Monocytes % (Manual) Platelet Estimate Polychromasia Hypochromasia (manual) Anisocytosis (manual) Retic Count 0.9 Sodium 139 Potassium 3.4 L Chloride 106 Carbon Dioxide 28 Anion Gap 8 L BUN 11 Creatinine 0.4 L Est GFR ( Amer) > 60 Est GFR (Non-Af Amer) > 60 POC Glucose (mg/dL) 320 H Random Glucose 261 H Calcium 7.3 L Phosphorus 1.8 L Magnesium 2.2 Ferritin 267.0 Total Bilirubin 0.8 AST 14 D ALT 37 Alkaline Phosphatase 69 Troponin I Total Protein 6.3 Albumin 2.8 L Globulin 3.5 Albumin/Globulin Ratio 0.8 L Vitamin B12 930 Folate 4.0 Blood Type Blood Type Confirm Antibody Screen - EKG Data EKG Interpreted by: Myself Assessment & Plan (1) Breast cancer Assessment and Plan: management per Dr Penaloza Status: Acute (2) Hypertension Status: Acute (3) Pneumonia Assessment and Plan: on antibiotics Status: Acute (4) Shortness of breath Assessment and Plan: recommend echocardiogram for further evaluation Status: Acute
[2017-01-27] MEDS: Sodium Chloride 0.9% 1,000 ML IV SCH (19:00)
--- NOTE | 2017-01-27 21:08 | CP.PCM.PN ---
Subjective - Date & Time of Evaluation Date of Evaluation: 01/27/17 Time of Evaluation: 19:30 - Subjective Subjective: Feeling better. Objective - Vital Signs/Intake and Output Vital Signs (last 24 hours): Temp Pulse Resp BP Pulse Ox 97.8 F 90 20 124/75 97 01/27/17 16:00 01/27/17 16:00 01/27/17 16:00 01/27/17 16:00 01/27/17 16:00 Intake and Output: 01/27/17 01/28/17 18:59 06:59 Intake Total 485 Balance 485 - Medications Medications: Current Medications Acetaminophen (Tylenol 325mg Tab) 650 mg PO Q6 PRN PRN Reason: Pain, Mild (1-3) Last Admin: 01/26/17 19:24 Dose: 650 mg Albuterol/Ipratropium (Duoneb 3 Mg/0.5 Mg (3 Ml) Ud) 3 ml INH RQ6 [facility] Last Admin: 01/27/17 20:07 Dose: 3 ml Apixaban (Eliquis) 5 mg PO BID [facility] Last Admin: 01/27/17 17:30 Dose: 5 mg Famotidine (Pepcid) 20 mg PO BID [facility] Last Admin: 01/27/17 17:30 Dose: 20 mg Vancomycin/Sodium Chloride (Vancomycin 1 Gm/Ns 200 Ml) 1 gm in 200 mls @ 133 mls/hr IVPB Q12H [facility] Stop: 01/30/17 17:01 Last Admin: 01/27/17 18:58 Dose: 133 mls/hr Sodium Chloride (Sodium Chloride 0.9%) 1,000 mls @ 40 mls/hr IV .Q24H [facility] Last Admin: 01/27/17 19:00 Dose: Not Given Meropenem 1 gm/ Sodium (Chloride) 100 mls @ 100 mls/hr IVPB Q8H [facility] Last Admin: 01/27/17 18:59 Dose: 100 mls/hr Insulin Human Regular (Novolin R) 0 unit SC ACHS [facility] PRN Reason: Protocol Last Admin: 01/27/17 17:33 Dose: 4 unit Levetiracetam (Keppra) 500 mg PO BID [facility] Last Admin: 01/27/17 17:30 Dose: 500 mg Methylprednisolone (Solu-Medrol) 40 mg IV Q8 [facility] Last Admin: 01/27/17 13:30 Dose: 40 mg - Labs Labs: 01/27/17 07:13 01/27/17 07:13 Assessment and Plan (1) Breast cancer Assessment & Plan: brain, lung, liver, ?bone mets s/p brain radiotherapy on outpatient chemotherapy at [facility] discussed with pts family the importance of completing her full antibiotic course before resuming her chemotherapy with her primary oncologist Status: Acute (2) Anemia Assessment & Plan: likely chronic disease and chemotherapy effect transfusion support if hgb < 7 Status: Acute
[2017-01-28] MEDS: Albuterol-Ipratrop 3 mg / 0.5 (3 ml) UD INH SCH ×3 (01:36→13:50)
[2017-01-28] MEDS: Meropenem 1 GM in Sodium Chloride 0.9% 100 ML IVPB SCH ×3 (02:09→19:45)
[2017-01-28] MEDS: Sodium Chloride 0.9% 1,000 ML IV SCH (02:10)
[2017-01-28] MEDS: Vancomycin 1 gm/NS 200 ml 1 GM/200 ML BAG IVPB SCH ×2 (04:11→18:08)
[2017-01-28] MEDS: MethylPREDNISolone 40 mg Vial IV SCH ×3 (05:51→21:29)
[2017-01-28 08:12] LABS: BASO % 0.1 % (0.0-2.0); LYMPH # 0.5 K/uL (1.0-4.3); LYMPH % 6.6 % (20.0-40.0); MEAN CELL VOLUME 89.1 fL (81.0-99.0); MEAN CORPUSCULAR HEMOGLOBIN 29.4 pg (27.0-31.0); MEAN PLATELET VOLUME 7.7 fL (7.2-11.7); MONO # 0.3 K/uL (0.0-0.8); MONO % 3.9 % (0.0-10.0); NRBC % 0.6 % (0.0-2.0); PLATELET COUNT 281 K/uL (130-400); RED CELL DISTRIBUTION WIDTH 17.1 % (11.5-14.5)
[2017-01-28 08:30] LABS: ALB/GLOB RATIO 1.2 (1.0-2.1); ALKALINE PHOSPHATASE 66 U/L (38-126); ALT/SGPT 30 U/L (9-52); AST/SGOT 17 U/L (14-36); BILIRUBIN,TOTAL 0.7 mg/dL (0.2-1.3); BLOOD UREA NITROGEN 12 mg/dL (7-17); CALCIUM 7.2 mg/dl (8.6-10.4); CARBON DIOXIDE 27 mmol/L (22-30); CHLORIDE 107 mmol/L (98-107); GFR AFRICAN-AMERICAN > 60; GLUCOSE,RANDOM 282 mg/dL (65-105); MAGNESIUM 2.4 mg/dL (1.6-2.3); PHOSPHOROUS 1.7 mg/dL (2.5-4.5); POTASSIUM 3.8 mmol/L (3.6-5.2); SODIUM 141 mmol/L (132-148); TOTAL PROTEIN 5.4 g/dL (6.3-8.3)
[2017-01-28] MEDS: (Novolin R) Insulin Human Regular 100 units/ml vial SC SCH ×4 (08:43→21:56)
--- NOTE | 2017-01-28 08:53 | CP.PCM.PN ---
Subjective - Date & Time of Evaluation Date of Evaluation: 01/28/17 Time of Evaluation: 08:30 - Subjective Subjective: Patient was with family member Tatianna at bedside. 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 Per family they try to get patient to walk as much as possible however recently she has been walking substantially less. We talked about situation at extended length. She did not have agitation overnight. This morning she did not appear to be in acute distress however still has rales and rhonchi on exam. She reports breathing is ok at rest however with movment out of bed she is short of breath. Will check a portable. Also will try mycomyst to see if can help with phlegm. She denied having chest pain or palpitations when I saw her - however she also says it seems to come and go. Cardiac enzymes negative, she remains on the Eliquis PO BID for the recent PE. Pending echo at this time. Objective - Vital Signs/Intake and Output Vital Signs (last 24 hours): Temp Pulse Resp BP Pulse Ox 98.0 F 80 18 145/76 100 01/28/17 04:52 01/28/17 04:52 01/28/17 04:52 01/28/17 04:52 01/28/17 04:52 Intake and Output: 01/28/17 01/28/17 06:59 18:59 Intake Total 1030 Output Total 400 Balance 630 - Medications Medications: Current Medications Acetaminophen (Tylenol 325mg Tab) 650 mg PO Q6 PRN PRN Reason: Pain, Mild (1-3) Last Admin: 01/26/17 19:24 Dose: 650 mg Albuterol/Ipratropium (Duoneb 3 Mg/0.5 Mg (3 Ml) Ud) 3 ml INH RQ6 [facility] Last Admin: 01/28/17 07:29 Dose: 3 ml Apixaban (Eliquis) 5 mg PO BID [facility] Last Admin: 01/27/17 17:30 Dose: 5 mg Famotidine (Pepcid) 20 mg PO BID [facility] Last Admin: 01/28/17 08:45 Dose: 20 mg Vancomycin/Sodium Chloride (Vancomycin 1 Gm/Ns 200 Ml) 1 gm in 200 mls @ 133 mls/hr IVPB Q12H [facility] Stop: 01/30/17 17:01 Last Admin: 01/28/17 04:11 Dose: 133 mls/hr Sodium Chloride (Sodium Chloride 0.9%) 1,000 mls @ 40 mls/hr IV .Q24H [facility] Last Admin: 01/28/17 02:10 Dose: 40 mls/hr Meropenem 1 gm/ Sodium (Chloride) 100 mls @ 100 mls/hr IVPB Q8H [facility] Last Admin: 01/28/17 02:09 Dose: 100 mls/hr Insulin Glargine (Lantus) 7 unit SC QPM [facility] Insulin Human Regular (Novolin R) 0 unit SC ACHS [facility] PRN Reason: Protocol Last Admin: 01/28/17 08:43 Dose: 8 unit Levetiracetam (Keppra) 500 mg PO BID [facility] Last Admin: 01/27/17 17:30 Dose: 500 mg Methylprednisolone (Solu-Medrol) 40 mg IV Q8 [facility] Last Admin: 01/28/17 05:51 Dose: 40 mg - Labs Labs: 01/28/17 07:57 01/28/17 07:57 - Constitutional Appears: No Acute Distress, Older Than Stated Age, Cachectic, Chronically Ill - Head Exam Additional comments: Recent chemo, hair loss - Eye Exam Eye Exam: EOMI, Normal appearance - ENT Exam ENT Exam: Mucous Membranes Moist - Respiratory Exam Respiratory Exam: Decreased Breath Sounds, Rales, Rhonchi Additional comments: Bilaterall rales and rhonchi, R > L - Cardiovascular Exam Cardiovascular Exam: REGULAR RHYTHM - GI/Abdominal Exam GI & Abdominal Exam: Soft, Normal Bowel Sounds. absent: Firm, Guarding, Rigid, Tenderness - Neurological Exam Neurological Exam: Alert, Awake Neuro motor strength exam: Left Upper Extremity: 4, Right Upper Extremity: 4 Additional comments: She is almost AAO 3, waxing and waning. - Psychiatric Exam Psychiatric exam: Normal Affect, Normal Mood - Skin Skin Exam: Pallor, Warm Assessment and Plan - Assessment and Plan (Free Text) Assessment: Pneumonia, sepsis, and shortness of breath - Consolidation in the right upper lobe. 01/28: Currently Blood culture negative 24 hrs, continue with IV abx. Repeat a portable film. 01/27: Currently breathing is better this morning. A repeat CT was done to assess for PE as the family reported she had a PE and DVT at [facility]. This was negative for PE. At this time plan is to continue with IV abx. Pending blood and urine cultures at this time.Will need palliative consult as there is metastatic disease. Reorded the sputum cx as the previous one got canceled Day 3 of Vancomycin Day 2 of Mepron Chest xray: Interval right upper lobe collapse -endobronchial and or surrounding extrinsic compressive causative lesion suspect. Chest CT: Evidence of partial left lower lobectomy. Extensive opacification of the right upper lobe possibly represents soft tissue mass/malignant neoplasm, pneumonia, and/or postobstructive atelectasis. Correlate clinically. This finding is inseparable from the upper mediastinum and right hilum. The right upper lobe bronchus appears narrowed, possibly occluded. Suspect mucous or neoplasm within the distal right lower lobe bronchus. Small right pleural effusion which dependent consolidation. Numerous hypodense hepatic masses worrisome for metastases. Bilateral mastectomy. Mixed chondroid matrix lesion, right humerus. This may represent enchondroma or chondrosarcoma in the proper clinical setting. Partially imaged L2 compression fracture deformity. Pulmonary Embolism found three weeks ago 01/28 Pending echo at this time, cardiac enzymes negative 01/27: Restarted on Eliquis 5mg PO BID. Waiting on the venous dopplers. The repeat CTA was negative Monitor Hgb, if decreases then may need to discontinue or change to a heparin ggt. Anemia 01/28: Remains 9.2 01/27: Status post 1 unit of PRBC, and Hgb 9.2. She has been on Eliquis for DVT and PE. I explained to the family that will continue with Eliquis for now. However if becomes more anemic may need to discontinue or change to heparin ggt. Per family she has been getting chemotherapy Diabetes 01/28: Starting long acting Lantus 7 units tonight, accuchecks in the 250 to 300 range 01/27: At this time on SSI. Her home medications include glipizide as well as Actos Accuchecks have been in the 250 to 290 range. Will start some long acting probably tonight Hypertension 01/28: Systolic BPs 130s and 140s - stop the IVF 01/27: Holding off on HTN medications. Her home medications were Diovan History of thyroid disease Patient reports having history of thyroid disease, but does not know which type and does not take medications. TSH,T4: WNL History of UTI 01/27: Waiting on urine culture however the UA looks ok. Prophylactic measure SCDs, Heparin 5000units SC Q8h Pepcid 20mg PO BID Consistent carb/heart health 2Na diet
[2017-01-28 09:04] LABS: BLASTS 1 % (0-0); NEUTROPHIL 88 % (50-75); NUCLEATED RED BLOOD CELL 1 % (0-0); TOTAL CELLS COUNTED 100
--- NOTE | 2017-01-28 09:36 | CARD ---
APPROVED REPORT EKG Measurement Heart [id number] <Conclusion> Sinus tachycardia Otherwise normal ECG
--- NOTE | 2017-01-28 11:11 | RAD ---
Chest x-ray single frontal view History: Shortness of breath. Right upper lobe pneumonia. Comparison: 01/25/2017 Findings: Persistent confluent airspace consolidative changes seen within the right upper to mid lung zone. Worsening/new small to moderate left pleural effusion with left basilar airspace opacifications. Cardiomegaly. Calcification at the aortic knob. Degenerative changes in the spine and shoulders. Probable chondroid lesion in the right proximal humerus. Left chest wall port extends to the junction of the proximal right SVC/axillary pain. Clinical correlation. Impression: Worsening left basilar airspace opacity with pleural effusion. Persistent consolidative changes the right upper to mid lung zone.
--- NOTE | 2017-01-28 13:10 | CP.PCM.PN ---
Subjective - Date & Time of Evaluation Date of Evaluation: 01/28/17 Time of Evaluation: 11:00 - Subjective Subjective: patient has no current chest pain or dyspnea Objective - Vital Signs/Intake and Output Vital Signs (last 24 hours): Temp Pulse Resp BP Pulse Ox 98.0 F 75 18 149/63 100 01/28/17 04:52 01/28/17 09:00 01/28/17 04:52 01/28/17 11:34 01/28/17 04:52 Intake and Output: 01/28/17 01/28/17 06:59 18:59 Intake Total 1030 Output Total 400 Balance 630 - Medications Medications: Current Medications Acetaminophen (Tylenol 325mg Tab) 650 mg PO Q6 PRN PRN Reason: Pain, Mild (1-3) Last Admin: 01/26/17 19:24 Dose: 650 mg Acetylcysteine (Acetylcysteine 20%) 4 ml INH RQ6 [facility] Albuterol/Ipratropium (Duoneb 3 Mg/0.5 Mg (3 Ml) Ud) 3 ml INH RQ6 [facility] Last Admin: 01/28/17 07:29 Dose: 3 ml Apixaban (Eliquis) 5 mg PO BID [facility] Last Admin: 01/28/17 11:00 Dose: 5 mg Famotidine (Pepcid) 20 mg PO BID [facility] Last Admin: 01/28/17 11:38 Dose: Not Given Vancomycin/Sodium Chloride (Vancomycin 1 Gm/Ns 200 Ml) 1 gm in 200 mls @ 133 mls/hr IVPB Q12H [facility] Stop: 01/30/17 17:01 Last Admin: 01/28/17 04:11 Dose: 133 mls/hr Meropenem 1 gm/ Sodium (Chloride) 100 mls @ 100 mls/hr IVPB Q8H [facility] Last Admin: 01/28/17 11:20 Dose: 100 mls/hr Insulin Glargine (Lantus) 7 unit SC QPM [facility] Insulin Human Regular (Novolin R) 0 unit SC ACHS [facility] PRN Reason: Protocol Last Admin: 01/28/17 11:33 Dose: 8 unit Levetiracetam (Keppra) 500 mg PO BID [facility] Last Admin: 01/28/17 10:00 Dose: 500 mg Methylprednisolone (Solu-Medrol) 40 mg IV Q8 [facility] Last Admin: 01/28/17 05:51 Dose: 40 mg - Labs Labs: 01/28/17 07:57 01/28/17 07:57 - Constitutional Appears: Chronically Ill - Head Exam Head Exam: NORMAL INSPECTION - Eye Exam Eye Exam: Normal appearance - ENT Exam ENT Exam: Mucous Membranes Moist - Neck Exam Neck Exam: Full ROM - Respiratory Exam Respiratory Exam: Rhonchi - Cardiovascular Exam Cardiovascular Exam: REGULAR RHYTHM - GI/Abdominal Exam GI & Abdominal Exam: Normal Bowel Sounds - Rectal Exam Rectal Exam: Deferred - Extremities Exam Extremities Exam: Full ROM - Back Exam Back Exam: NORMAL INSPECTION - Neurological Exam Neurological Exam: Alert - Psychiatric Exam Psychiatric exam: Normal Mood - Skin Skin Exam: Warm Assessment and Plan (1) Breast cancer Assessment & Plan: possible cause of previous pulmonary embolism. Status: Acute (2) Hypertension Assessment & Plan: blood pressure control Status: Acute (3) Pneumonia Assessment & Plan: on antibiotics Status: Acute (4) Shortness of breath Assessment & Plan: will evaluate LV function Status: Acute
[2017-01-28] MEDS: Acetylcysteine 20% Inhal Soln (4ml) INH SCH (13:50)
--- NOTE | 2017-01-28 14:40 | CP.PCM.PN ---
Subjective - Date & Time of Evaluation Date of Evaluation: 01/28/17 Time of Evaluation: 08:00 - Subjective Subjective: less cough less sob cultures noted Objective - Vital Signs/Intake and Output Vital Signs (last 24 hours): Temp Pulse Resp BP Pulse Ox 98.0 F 75 18 149/63 100 01/28/17 04:52 01/28/17 09:00 01/28/17 04:52 01/28/17 11:34 01/28/17 04:52 Intake and Output: 01/28/17 01/28/17 06:59 18:59 Intake Total 1030 Output Total 400 Balance 630 - Medications Medications: Current Medications Acetaminophen (Tylenol 325mg Tab) 650 mg PO Q6 PRN PRN Reason: Pain, Mild (1-3) Last Admin: 01/26/17 19:24 Dose: 650 mg Acetylcysteine (Acetylcysteine 20%) 4 ml INH RQ6 [facility] Last Admin: 01/28/17 13:50 Dose: 4 ml Albuterol/Ipratropium (Duoneb 3 Mg/0.5 Mg (3 Ml) Ud) 3 ml INH RQ6 [facility] Last Admin: 01/28/17 13:50 Dose: 3 ml Apixaban (Eliquis) 5 mg PO BID [facility] Last Admin: 01/28/17 11:00 Dose: 5 mg Famotidine (Pepcid) 20 mg PO BID [facility] Last Admin: 01/28/17 11:38 Dose: Not Given Vancomycin/Sodium Chloride (Vancomycin 1 Gm/Ns 200 Ml) 1 gm in 200 mls @ 133 mls/hr IVPB Q12H [facility] Stop: 01/30/17 17:01 Last Admin: 01/28/17 04:11 Dose: 133 mls/hr Meropenem 1 gm/ Sodium (Chloride) 100 mls @ 100 mls/hr IVPB Q8H [facility] Last Admin: 01/28/17 11:20 Dose: 100 mls/hr Insulin Glargine (Lantus) 7 unit SC QPM [facility] Insulin Human Regular (Novolin R) 0 unit SC ACHS [facility] PRN Reason: Protocol Last Admin: 01/28/17 11:33 Dose: 8 unit Levetiracetam (Keppra) 500 mg PO BID [facility] Last Admin: 01/28/17 10:00 Dose: 500 mg Methylprednisolone (Solu-Medrol) 40 mg IV Q8 [facility] Last Admin: 01/28/17 14:02 Dose: 40 mg - Labs Labs: 01/28/17 07:57 01/28/17 07:57 - Constitutional Appears: Non-toxic, Chronically Ill - Head Exam Head Exam: NORMOCEPHALIC - Eye Exam Eye Exam: PERRL - ENT Exam ENT Exam: Mucous Membranes Dry - Neck Exam Neck Exam: absent: Lymphadenopathy - Respiratory Exam Respiratory Exam: Decreased Breath Sounds - Cardiovascular Exam Cardiovascular Exam: REGULAR RHYTHM - GI/Abdominal Exam GI & Abdominal Exam: Distended, Soft Assessment and Plan (1) Diabetes Status: Acute (2) History of UTI Status: Acute (3) Pleural effusion Status: Acute (4) Pneumonia Status: Acute (5) Shortness of breath Status: Acute
[2017-01-28] MEDS ORDERED: (Lantus) Insulin Glargine, Recombinant SC SCH (18:00)
[2017-01-29] MEDS: Albuterol-Ipratrop 3 mg / 0.5 (3 ml) UD INH SCH ×4 (01:41→19:41)
[2017-01-29] MEDS: Acetylcysteine 20% Inhal Soln (4ml) INH SCH ×4 (01:41→19:42)
[2017-01-29] MEDS: Meropenem 1 GM in Sodium Chloride 0.9% 100 ML IVPB SCH ×3 (03:04→19:03)
[2017-01-29] MEDS: Vancomycin 1 gm/NS 200 ml 1 GM/200 ML BAG IVPB SCH ×2 (04:06→17:00)
[2017-01-29] MEDS: MethylPREDNISolone 40 mg Vial IV SCH ×2 (05:51→14:08)
[2017-01-29 07:01] LABS: BASO % 0.2 % (0.0-2.0); EOS % 0.1 % (0.0-4.0); HEMATOCRIT 28.6 % (34.0-47.0); LYMPH # 0.4 K/uL (1.0-4.3); LYMPH % 6.5 % (20.0-40.0); MEAN CELL VOLUME 88.9 fL (81.0-99.0); MEAN CORPUSCULAR HEMOGLOBIN 29.4 pg (27.0-31.0); MEAN CORPUSCULAR HGB CONC 33.1 g/dL (33.0-37.0); MEAN PLATELET VOLUME 8.1 fL (7.2-11.7); MONO # 0.5 K/uL (0.0-0.8); MONO % 8.7 % (0.0-10.0); NRBC % 1.8 % (0.0-2.0); PLATELET COUNT 281 K/uL (130-400); RED CELL DISTRIBUTION WIDTH 16.9 % (11.5-14.5); WHITE BLOOD COUNT 6.2 K/uL (4.8-10.8)
[2017-01-29 07:50] LABS: ALB/GLOB RATIO 1.1 (1.0-2.1); ALKALINE PHOSPHATASE 55 U/L (38-126); ALT/SGPT 38 U/L (9-52); AST/SGOT 27 U/L (14-36); BILIRUBIN,TOTAL 0.8 mg/dL (0.2-1.3); BLOOD UREA NITROGEN 11 mg/dL (7-17); CALCIUM 7.1 mg/dl (8.6-10.4); CARBON DIOXIDE 33 mmol/L (22-30); CHLORIDE 104 mmol/L (98-107); GFR AFRICAN-AMERICAN > 60; GLUCOSE,RANDOM 308 mg/dL (65-105); MAGNESIUM 2.1 mg/dL (1.6-2.3); PHOSPHOROUS 1.8 mg/dL (2.5-4.5); POTASSIUM 3.7 mmol/L (3.6-5.2); SODIUM 139 mmol/L (132-148); TOTAL PROTEIN 5.4 g/dL (6.3-8.3)
--- NOTE | 2017-01-29 08:23 | CP.PCM.PN ---
<Toney Sheikh - Last Filed: 01/29/17 17:02> Subjective - Date & Time of Evaluation Date of Evaluation: 01/29/17 Time of Evaluation: 07:45 - Subjective Subjective: PGY-[address] Douglass. No acute events overnight noted. Patient did not have any complaints today. She stated she ate breakfast and ambulated to the bathroom without difficulty. She denied shortness of breath, chest pain, abdominal pain, headaches, dizziness, vision changes. Objective - Vital Signs/Intake and Output Vital Signs (last 24 hours): Temp Pulse Resp BP Pulse Ox 97.8 F 68 20 147/74 95 01/28/17 23:30 01/29/17 03:15 01/28/17 23:30 01/28/17 23:30 01/28/17 23:30 - Medications Medications: Current Medications Acetaminophen (Tylenol 325mg Tab) 650 mg PO Q6 PRN PRN Reason: Pain, Mild (1-3) Last Admin: 01/28/17 19:56 Dose: 650 mg Acetylcysteine (Acetylcysteine 20%) 4 ml INH RQ6 [facility] Last Admin: 01/29/17 07:38 Dose: 4 ml Albuterol/Ipratropium (Duoneb 3 Mg/0.5 Mg (3 Ml) Ud) 3 ml INH RQ6 MARCELINA Last Admin: 01/29/17 07:38 Dose: 3 ml Apixaban (Eliquis) 5 mg PO BID [facility] Last Admin: 01/28/17 17:58 Dose: 5 mg Famotidine (Pepcid) 20 mg PO BID [facility] Last Admin: 01/28/17 17:59 Dose: 20 mg Vancomycin/Sodium Chloride (Vancomycin 1 Gm/Ns 200 Ml) 1 gm in 200 mls @ 133 mls/hr IVPB Q12H [facility] Stop: 01/30/17 17:01 Last Admin: 01/29/17 04:06 Dose: 133 mls/hr Meropenem 1 gm/ Sodium (Chloride) 100 mls @ 100 mls/hr IVPB Q8H [facility] Last Admin: 01/29/17 03:04 Dose: 100 mls/hr Insulin Glargine (Lantus) 7 unit SC QPM [facility] Last Admin: 01/28/17 18:06 Dose: 7 units Insulin Human Regular (Novolin R) 0 unit SC ACHS [facility] PRN Reason: Protocol Last Admin: 01/28/17 21:56 Dose: 2 unit Levetiracetam (Keppra) 500 mg PO BID [facility] Last Admin: 01/28/17 17:58 Dose: 500 mg Methylprednisolone (Solu-Medrol) 40 mg IV Q8 [facility] Last Admin: 01/29/17 05:51 Dose: 40 mg - Labs Labs: 01/29/17 06:47 01/28/17 07:57 - Additional Findings Additional findings: - Constitutional Appears: No Acute Distress, Older Than Stated Age, Cachectic, Chronically Ill - Head Exam Additional comments: Recent chemo, hair loss - Eye Exam Eye Exam: EOMI, Normal appearance - ENT Exam ENT Exam: Mucous Membranes Moist - Respiratory Exam Respiratory Exam: Decreased Breath Sounds, Rales, Rhonchi Additional comments: Bilaterall rales and rhonchi, R > L - Cardiovascular Exam Cardiovascular Exam: REGULAR RHYTHM - GI/Abdominal Exam GI & Abdominal Exam: Soft, Normal Bowel Sounds. absent: Firm, Guarding, Rigid, Tenderness - Neurological Exam Neurological Exam: Alert, Awake Neuro motor strength exam: Left Upper Extremity: 4, Right Upper Extremity: 4 Additional comments: She is almost AAO 3, waxing and waning. - Psychiatric Exam Psychiatric exam: Normal Affect, Normal Mood - Skin Skin Exam: Pallor, Warm Assessment and Plan - Assessment and Plan (Free Text) Assessment: Pneumonia likely 2/2 to immunocomprimised state Pulmonary consult, Dr John Infectious Disease consult, Dr Cook Sepsis on admission Procalcitonin 10.46 (H), Bandemia resolved Blood culture 01/25 shows no growth up to date Imaging: Repeat Chest XRAY 01/28: Worsening left basilar airspace opacity with pleural effusion. Persistent consolidative changes to the right upper to mid lung zone. Chest CT Angio 01/26: No pulmonary embolism. Consolidation in the posterior aspect of the right upper lobe which may represent an infiltrate/pneumonia. Underlying mass is not evident at this time although this is not entirely excluded particularly given the known probable metastatic liver findings. Short -term follow-up imaging post therapy is recommended. Small right pleural effusion with adjacent atelectasis. Debris and thickening of the right mainstem bronchus, the upper lobe bronchus, and the bronchus intermedius. Numerous hepatic hypodense masses most consistent with metastatic disease. Chest XRAY 01/25: Interval right upper lobe collapse - endobronchial and or surrounding extrinsic compressive causative lesion suspect. Chest CT w/o contrast 01/25: Evidence of partial left lower lobectomy. Extensive opacification of the right upper lobe possibly represents soft tissue mass/malignant neoplasm, pneumonia, and/or postobstructive atelectasis. Correlate clinically. This finding is inseparable from the upper mediastinum and right hilum. The right upper lobe bronchus appears narrowed, possibly occluded. Suspect mucous or neoplasm within the distal right lower lobe bronchus. Small right pleural effusion which dependent consolidation. Numerous hypodense hepatic masses worrisome for metastases. Bilateral mastectomy. Mixed chondroid matrix lesion, right humerus. This may represent enchondroma or chondrosarcoma in the proper clinical setting. Partially imaged L2 compression fracture deformity. Meds: Vancomycin 1g IVPB Q12H, started 01/25 Meropenem 1g IVPB Q8H, started 01/25 (Discontinued Cefepime) Duoneb INH RQ6 Solumedrol 40mg IV Q8 Acethylcysteine 4ml INH RQ6 Tylenol 650mg PO Q6 PRN Pulmonary Embolism found three weeks ago Family members report that recently at [facility] she had a DVT and then a PE; mechanical thrombectomy of PE considered however not done due to low LVEF Cardiology consult, Dr Manuel Chest CT Angio 01/26 showed no pulmonary embolism Troponin I negative x2; Pro-BNP wnl Restarted on Eliquis 5mg PO BID 01/27 F/U Echo results Duplex scan lower extremities 01/27: negative Breast cancer w/ mets Hematology/Oncology consult, Dr Penaloza brain, lung, liver, and ?bone mets Seizures in past as per family, 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 Castaneda - hematology/ oncologist [phone] Penaloza discussed with pts family the importance of completing her full antibiotic course before resuming her chemotherapy with her primary oncologist Anemia Likely 2/2 chronic disease and chemotherapy effect transfusion support if hgb < 7 Hg 10.4 on admission Status post 1 unit of PRBC 01/27 She has been on Eliquis for DVT and PE. I explained to the family that will continue with Eliquis for now. However if becomes more anemic may need to discontinue or change to heparin ggt. Per family she has been getting chemotherapy Diabetes HgbA1C: 8.6 Lantus 10u SC QPM (increased from 7u 01/29) Novolin SC ACHS Hypertension PMD recently took her off her home BP meds which included valsartan, norvasc and cardizem History of Lung Cancer S/p left lower lobe lung lobectomy Thyroid Disorder Patient reports having history of thyroid disease, but does not know which type and does not take medications. TSH 0.23 (L), T4 WNL History of UTI Urine Culture 01/25 shows no growth UA 01/25 shows 3+ glucose, 1+ ketones, and 2 urine urobilinogen Prophylactic measure Eliquis 5mg PO BID Pepcid 20mg PO BID Consistent carb/heart health 2Na diet Physical therapy eval and treat <Raven Douglass - Last Filed: 01/29/17 17:31> Objective - Vital Signs/Intake and Output Vital Signs (last 24 hours): Temp Pulse Resp BP Pulse Ox 98.0 F 68 18 178/84 H 97 01/29/17 07:10 01/29/17 07:10 01/29/17 07:10 01/29/17 07:10 01/29/17 07:10 - Medications Medications: Current Medications Acetaminophen (Tylenol 325mg Tab) 650 mg PO Q6 PRN PRN Reason: Pain, Mild (1-3) Last Admin: 01/29/17 09:02 Dose: 650 mg Acetylcysteine (Acetylcysteine 20%) 4 ml INH RQ6 MARCELINA Last Admin: 01/29/17 13:27 Dose: 4 ml Albuterol/Ipratropium (Duoneb 3 Mg/0.5 Mg (3 Ml) Ud) 3 ml INH RQ6 MARCELINA Last Admin: 01/29/17 13:26 Dose: 3 ml Apixaban (Eliquis) 5 mg PO BID [facility] Last Admin: 01/29/17 11:00 Dose: 5 mg Famotidine (Pepcid) 20 mg PO BID [facility] Last Admin: 01/29/17 11:00 Dose: 20 mg Vancomycin/Sodium Chloride (Vancomycin 1 Gm/Ns 200 Ml) 1 gm in 200 mls @ 133 mls/hr IVPB Q12H [facility] Stop: 01/30/17 17:01 Last Admin: 01/29/17 04:06 Dose: 133 mls/hr Meropenem 1 gm/ Sodium (Chloride) 100 mls @ 100 mls/hr IVPB Q8H [facility] Last Admin: 01/29/17 10:59 Dose: 100 mls/hr Insulin Glargine (Lantus) 10 unit SC QPM [facility] Insulin Human Regular (Novolin R) 0 unit SC ACHS [facility] PRN Reason: Protocol Last Admin: 01/29/17 12:24 Dose: 1 unit Levetiracetam (Keppra) 500 mg PO BID [facility] Last Admin: 01/29/17 11:00 Dose: 500 mg Methylprednisolone (Solu-Medrol) 40 mg IVP Q12 [facility] Ondansetron HCl (Zofran Inj) 4 mg IVP Q4H PRN PRN Reason: Nausea/Vomiting - Labs Labs: 01/29/17 06:47 01/29/17 06:47 Attending/Attestation - Attestation I have personally seen and examined this patient.: Yes I have fully participated in the care of the patient.: Yes I have reviewed all pertinent clinical information, including history, physical exam and plan: Yes Notes (Text): Seen and examined No complain,lying comfortable,not in pain,no sob 1. Pneumnonia and immunocomprimised state Pulmonary consult, Dr John Infectious Disease consult, Dr Cook Sepsis ,high procalcitonin and Bandemia on admission Blood culture 01/25 shows no growth up to date. continue Meropenem and vancomycin(Started on 01/25) taper steroid 2.Recent Pulmonary embolism mechanical thrombectomy of PE considered however not done due to low LVEF Cardiology consult, Dr Manuel continue Eliquis Chest CT Angio 01/26 showed no pulmonary embolism F/U Echo results Duplex scan lower extremities 01/27: negative 3.Breast cancer with mets follow her oncologist Dr Castnaeda Pt has metastatic spread to the brain Keppra 500mg PO BID s/p brain radiotherapy 4. Anemia Tranfusion if Hb<7 5.Diabetes mellitus Ha1c 8.6 continue insulin/Increase her insulin dose 6.Hypertension Her antihypertensives discontinued recently 7.Lung cancer s/p lobectomy 8.Thyroid disorder 9.DVT and GI prophylaxis Eliquis 5mg PO BID Pepcid 20mg PO BID Consistent carb/heart health 2Na diet Physical therapy eval and treat 10.Anxiety Patient is very anxious. She is upset with her at bedside. d/w patients son in law who works here.She takes Ativan 1 mg for anxiety and ambien for sleep at home. Manuel sneed start on Ativan 0.5mg po once now and as needed if needed d/w RN She also was on Cymbalta 01/29/17 17:26
[2017-01-29] MEDS: (Novolin R) Insulin Human Regular 100 units/ml vial SC SCH ×4 (08:56→22:07)
[2017-01-29 09:07] LABS: NEUTROPHIL 91 % (50-75); TOTAL CELLS COUNTED 100
--- NOTE | 2017-01-29 10:28 | VASCLAB ---
PROCEDURE: Lower Extremity Venous Duplex Exam. HISTORY: hx of PE and DVT SOB, Legs pain/edema PRIORS: None. TECHNIQUE: Bilateral common femoral, femoral, popliteal and posterior tibial, peroneal and great saphenous veins were evaluated. Flow was assessed with color Doppler, compressibility, assessment of phasic flow and augmentation response. Report prepared by Tez Wilson, RVT FINDINGS: RIGHT: 1. Common Femoral Vein: 1.1. Compressibility - Fully compressible: Thrombus - None : Flow - Phasic: Augmentation -Normal: Reflux - . 2. Femoral Vein: 2.1. Compressibility - Fully compressible: Thrombus - None : Flow - Phasic: Augmentation -Normal: Reflux - . 3. Popliteal Vein: 3.1. Compressibility - Fully compressible: Thrombus - None : Flow - Phasic: Augmentation -Normal: Reflux - . 4. Posterior Tibial Vein: 4.1. Compressibility - Fully compressible: Thrombus - None: Flow - : Augmentation -: Reflux - . 5. Peroneal Vein: 5.1. Compressibility - Fully compressible: Thrombus - None: Flow - : Augmentation -: Reflux - . 6. Great Saphenous Vein: 6.1. Compressibility - Fully compressible: Thrombus - None: Flow - Phasic: Augmentation - : Reflux - . LEFT: 1. Common Femoral Vein: 1.1. Compressibility - Fully compressible: Thrombus - None: Flow - Phasic: Augmentation -Normal: Reflux - . 2. Femoral Vein: 2.1. Compressibility - Fully compressible: Thrombus - None: Flow - Phasic: Augmentation -Normal: Reflux - . 3. Popliteal Vein: 3.1. Compressibility - Fully compressible: Thrombus - None : Flow - Phasic: Augmentation -Normal: Reflux - . 4. Posterior Tibial Vein: 4.1. Compressibility - Fully compressible: Thrombus - None: Flow - : Augmentation -: Reflux - . 5. Peroneal Vein: 5.1. Compressibility - Fully compressible: Thrombus - None: Flow - : Augmentation -: Reflux - . 6. Great Saphenous Vein: 6.1. Compressibility - Fully compressible: Thrombus - None: Flow - Phasic: Augmentation - : Reflux - . OTHER FINDINGS: Right: None significant. Left: None significant. IMPRESSION: Right: No evidence of deep or superficial vein thrombosis of the right lower extremity. Left: No evidence of deep or superficial vein thrombosis of the left lower extremity.
--- NOTE | 2017-01-29 13:36 | CP.PCM.PN ---
Subjective - Date & Time of Evaluation Date of Evaluation: 01/29/17 Time of Evaluation: 09:40 - Subjective Subjective: the patient seen and examined Lying comfortably in no acute distress Breathing better No chest pain Afebrile Objective - Vital Signs/Intake and Output Vital Signs (last 24 hours): Temp Pulse Resp BP Pulse Ox 98.0 F 68 18 178/84 H 97 01/29/17 07:10 01/29/17 07:10 01/29/17 07:10 01/29/17 07:10 01/29/17 07:10 - Medications Medications: Current Medications Acetaminophen (Tylenol 325mg Tab) 650 mg PO Q6 PRN PRN Reason: Pain, Mild (1-3) Last Admin: 01/29/17 09:02 Dose: 650 mg Acetylcysteine (Acetylcysteine 20%) 4 ml INH RQ6 MARCELINA Last Admin: 01/29/17 13:27 Dose: 4 ml Albuterol/Ipratropium (Duoneb 3 Mg/0.5 Mg (3 Ml) Ud) 3 ml INH RQ6 MARCELINA Last Admin: 01/29/17 13:26 Dose: 3 ml Apixaban (Eliquis) 5 mg PO BID M[facility]ELINA Last Admin: 01/29/17 11:00 Dose: 5 mg Famotidine (Pepcid) 20 mg PO BID [facility] Last Admin: 01/29/17 11:00 Dose: 20 mg Vancomycin/Sodium Chloride (Vancomycin 1 Gm/Ns 200 Ml) 1 gm in 200 mls @ 133 mls/hr IVPB Q12H [facility] Stop: 01/30/17 17:01 Last Admin: 01/29/17 04:06 Dose: 133 mls/hr Meropenem 1 gm/ Sodium (Chloride) 100 mls @ 100 mls/hr IVPB Q8H [facility] Last Admin: 01/29/17 10:59 Dose: 100 mls/hr Insulin Glargine (Lantus) 10 unit SC QPM [facility] Insulin Human Regular (Novolin R) 0 unit SC ACHS [facility] PRN Reason: Protocol Last Admin: 01/29/17 12:24 Dose: 1 unit Levetiracetam (Keppra) 500 mg PO BID [facility] Last Admin: 01/29/17 11:00 Dose: 500 mg Methylprednisolone (Solu-Medrol) 40 mg IV Q8 [facility] Last Admin: 01/29/17 05:51 Dose: 40 mg Ondansetron HCl (Zofran Inj) 4 mg IVP Q4H PRN PRN Reason: Nausea/Vomiting - Labs Labs: 01/29/17 06:47 01/29/17 06:47 - Head Exam Head Exam: ATRAUMATIC, NORMOCEPHALIC - ENT Exam ENT Exam: Mucous Membranes Moist - Respiratory Exam Respiratory Exam: Decreased Breath Sounds - Cardiovascular Exam Cardiovascular Exam: REGULAR RHYTHM - GI/Abdominal Exam GI & Abdominal Exam: Soft, Normal Bowel Sounds - Extremities Exam Extremities Exam: Normal Inspection Assessment and Plan (1) Pneumonia Assessment & Plan: Continue antibiotics per infectious disease no pulmonary embolism on CT Breathing better Off BiPAP Cardiology workup continue nebulizer treatment Taper steroids Status: Acute (2) Shortness of breath Status: Acute
--- NOTE | 2017-01-29 16:10 | RAD ---
HISTORY: shortness of breath, PNA, cancer history COMPARISON: January 28, 2017. TECHNIQUE: Chest PA and lateral FINDINGS: LUNGS: Stable right upper lobe infiltrate PLEURA: No significant pleural effusion identified. No pneumothorax apparent. CARDIOVASCULAR: No radiographic findings to suggest acute or significant cardiovascular disease. Venous access catheter in stable, satisfactory position. OSSEOUS STRUCTURES: No significant abnormalities. VISUALIZED UPPER ABDOMEN: Normal. OTHER FINDINGS: None. IMPRESSION: No significant interval change compared to the prior examination(s). Persistent large right upper lobe infiltrate
[2017-01-29] MEDS: (Lantus) Insulin Glargine, Recombinant SC SCH (18:59)
--- NOTE | 2017-01-29 22:01 | CARD ---
APPROVED REPORT EXAM: Two-dimensional and M-mode echocardiogram with Doppler and color Doppler. Other Information Quality : GoodRhythm : INDICATION Dyspnea Surgery/Intervention Breast Cancer RISK FACTORS Hypertension Diabetes 2D DIMENSIONS IVSd1.2 (0.7-1.1cm)LVDd3.9 (3.9-5.9cm) PWd1.2 (0.7-1.1cm)LVDs2.8 (2.5-4.0cm) FS (%) 29.4 %LVEF (%)58.0 (>50%) M-Mode DIMENSIONS Left Atrium (MM)4.21 (2.5-4.0cm)Aortic Root2.75 (2.2-3.7cm) Aortic Cusp Exc.2.11 (1.5-2.0cm) Mitral Valve MV E Ifyvparm967.6cm/sMV A Hbkraxxh678.2cm/sE/A ratio1.0 TDI E/Lateral E'0.0E/Medial E'0.0 Tricuspid Valve TR Peak [id number]/sTR Peak Gr.[id number] LEFT VENTRICLE The left ventricle is normal size. There is borderline concentric left ventricular hypertrophy. The left ventricular function is normal. The left ventricular ejection fraction is within the normal range. There is normal LV segmental wall motion. Transmitral Doppler flow pattern is abnormal. RIGHT VENTRICLE The right ventricle is normal size. ATRIA The left atrium is mildly dilated. The right atrium size is normal. AORTIC VALVE The aortic valve is thickened but opens well. MITRAL VALVE Mitral regurgitation is mild. TRICUSPID VALVE There is mild tricuspid regurgitation. <Conclusion> Normal LV systolic function. LVH with diastolic dysfunction. Dilated LA. Mild MR. Mild TR.
--- NOTE | 2017-01-29 22:20 | CARD ---
APPROVED REPORT EKG Measurement Heart [id number] <Conclusion> Normal sinus rhythm Nonspecific ST and T wave abnormality Abnormal ECG
[2017-01-29] MEDS: MethylPREDNISolone 40 mg Vial IVP SCH (22:23)
--- NOTE | 2017-01-30 00:10 | CP.PCM.PN ---
Subjective - Date & Time of Evaluation Date of Evaluation: 01/29/17 Time of Evaluation: 18:35 - Subjective Subjective: Feeling better, appetite improved Objective - Vital Signs/Intake and Output Vital Signs (last 24 hours): Temp Pulse Resp BP Pulse Ox 97.9 F 66 20 152/73 H 98 01/29/17 16:00 01/29/17 19:47 01/29/17 16:00 01/29/17 16:00 01/29/17 16:00 - Medications Medications: Current Medications Acetaminophen (Tylenol 325mg Tab) 650 mg PO Q6 PRN PRN Reason: Pain, Mild (1-3) Last Admin: 01/29/17 09:02 Dose: 650 mg Acetylcysteine (Acetylcysteine 20%) 4 ml INH RQ6 MARCELINA Last Admin: 01/29/17 19:42 Dose: 4 ml Albuterol/Ipratropium (Duoneb 3 Mg/0.5 Mg (3 Ml) Ud) 3 ml INH RQ6 MARCELINA Last Admin: 01/29/17 19:41 Dose: 3 ml Apixaban (Eliquis) 5 mg PO BID [facility] Last Admin: 01/29/17 18:58 Dose: 5 mg Famotidine (Pepcid) 20 mg PO BID [facility] Last Admin: 01/29/17 18:57 Dose: 20 mg Vancomycin/Sodium Chloride (Vancomycin 1 Gm/Ns 200 Ml) 1 gm in 200 mls @ 133 mls/hr IVPB Q12H [facility] Stop: 01/30/17 17:01 Last Admin: 01/29/17 17:00 Dose: 133 mls/hr Imipenem/Cilastatin Sodium 500 (mg/ Dextrose) 100 mls @ 100 mls/hr IVPB Q6H [facility] Insulin Glargine (Lantus) 10 unit SC QPM [facility] Last Admin: 01/29/17 18:59 Dose: 10 units Insulin Human Regular (Novolin R) 0 unit SC ACHS [facility] PRN Reason: Protocol Last Admin: 01/29/17 22:07 Dose: Not Given Levetiracetam (Keppra) 500 mg PO BID [facility] Last Admin: 01/29/17 18:57 Dose: 500 mg Methylprednisolone (Solu-Medrol) 40 mg IVP Q12 [facility] Last Admin: 01/29/17 22:23 Dose: 40 mg Ondansetron HCl (Zofran Inj) 4 mg IVP Q4H PRN PRN Reason: Nausea/Vomiting Zolpidem Tartrate (Ambien) 5 mg PO HS PRN PRN Reason: Insomnia Last Admin: 01/29/17 22:23 Dose: 5 mg - Labs Labs: 01/29/17 06:47 01/29/17 06:47 - Head Exam Head Exam: ATRAUMATIC - Eye Exam Eye Exam: Normal appearance - ENT Exam ENT Exam: Mucous Membranes Dry - Respiratory Exam Respiratory Exam: Decreased Breath Sounds - Cardiovascular Exam Cardiovascular Exam: +S1, +S2 - GI/Abdominal Exam GI & Abdominal Exam: Normal Bowel Sounds Assessment and Plan (1) Breast cancer Assessment & Plan: brain, lung, liver, ?bone mets s/p brain radiotherapy on outpatient chemotherapy at [facility] discussed with pts family the importance of completing her full antibiotic course before resuming her chemotherapy with her primary oncologist Status: Acute (2) Anemia Assessment & Plan: chronic disease and chemotherapy Status: Acute
[2017-01-30] MEDS: Albuterol-Ipratrop 3 mg / 0.5 (3 ml) UD INH SCH ×4 (01:55→19:17)
[2017-01-30] MEDS: Acetylcysteine 20% Inhal Soln (4ml) INH SCH ×4 (01:55→19:17)
[2017-01-30] MEDS: Imipenem/Cilastatin 500 MG in Dextrose 5% In Water 100 ML IVPB SCH ×2 (03:40→09:46)
[2017-01-30] MEDS: Vancomycin 1 gm/NS 200 ml 1 GM/200 ML BAG IVPB SCH ×2 (05:10→17:09)
--- NOTE | 2017-01-30 07:04 | CP.PCM.PN ---
<Toney Sheikh R - Last Filed: 01/30/17 16:15> Subjective - Date & Time of Evaluation Date of Evaluation: 01/30/17 Time of Evaluation: 06:59 - Subjective Subjective: PGY-[address] Douglass. Patient had high BP overnight and was given hydralazine 5mg IVP ONCE. Patient complained of right flank pain rated 4/10. She said she ate some breakfast and had a BM this morning which was normal. Patient denied chest pain, shortness of breath, abdominal pain, fevers, nausea, vomiting, diarrhea. Objective - Vital Signs/Intake and Output Vital Signs (last 24 hours): Temp Pulse Resp BP Pulse Ox 98 F 67 20 176/79 H 96 01/30/17 04:12 01/30/17 04:12 01/30/17 04:12 01/30/17 04:12 01/30/17 04:12 Intake and Output: 01/29/17 01/30/17 18:59 06:59 Intake Total 400 Balance 400 - Medications Medications: Current Medications Acetaminophen (Tylenol 325mg Tab) 650 mg PO Q6 PRN PRN Reason: Pain, Mild (1-3) Last Admin: 01/29/17 09:02 Dose: 650 mg Acetylcysteine (Acetylcysteine 20%) 4 ml INH RQ6 [facility] Last Admin: 01/30/17 01:55 Dose: Not Given Albuterol/Ipratropium (Duoneb 3 Mg/0.5 Mg (3 Ml) Ud) 3 ml INH RQ6 [facility] Last Admin: 01/30/17 01:55 Dose: Not Given Apixaban (Eliquis) 5 mg PO BID [facility] Last Admin: 01/29/17 18:58 Dose: 5 mg Famotidine (Pepcid) 20 mg PO BID [facility] Last Admin: 01/29/17 18:57 Dose: 20 mg Vancomycin/Sodium Chloride (Vancomycin 1 Gm/Ns 200 Ml) 1 gm in 200 mls @ 133 mls/hr IVPB Q12H [facility] Stop: 01/30/17 17:01 Last Admin: 01/30/17 05:10 Dose: 133 mls/hr Imipenem/Cilastatin Sodium 500 (mg/ Dextrose) 100 mls @ 100 mls/hr IVPB Q6H [facility] Last Admin: 01/30/17 03:40 Dose: 100 mls/hr Insulin Glargine (Lantus) 10 unit SC QPM [facility] Last Admin: 01/29/17 18:59 Dose: 10 units Insulin Human Regular (Novolin R) 0 unit SC ACHS [facility] PRN Reason: Protocol Last Admin: 01/29/17 22:07 Dose: Not Given Levetiracetam (Keppra) 500 mg PO BID [facility] Last Admin: 01/29/17 18:57 Dose: 500 mg Methylprednisolone (Solu-Medrol) 40 mg IVP Q12 [facility] Last Admin: 01/29/17 22:23 Dose: 40 mg Ondansetron HCl (Zofran Inj) 4 mg IVP Q4H PRN PRN Reason: Nausea/Vomiting Zolpidem Tartrate (Ambien) 5 mg PO HS PRN PRN Reason: Insomnia Last Admin: 01/29/17 22:23 Dose: 5 mg - Labs Labs: 01/29/17 06:47 01/29/17 06:47 - Additional Findings Additional findings: - Constitutional Appears: No Acute Distress, Older Than Stated Age, Cachectic, Chronically Ill - Head Exam Additional comments: Recent chemo, hair loss - Eye Exam Eye Exam: EOMI, Normal appearance - ENT Exam ENT Exam: Mucous Membranes Moist - Respiratory Exam Respiratory Exam: Decreased Breath Sounds, Rales, Rhonchi Additional comments: Bilaterall rales and rhonchi, R > L - Cardiovascular Exam Cardiovascular Exam: REGULAR RHYTHM - GI/Abdominal Exam GI & Abdominal Exam: Soft, Normal Bowel Sounds. absent: Firm, Guarding, Rigid, Tenderness - Neurological Exam Neurological Exam: Alert, Awake Neuro motor strength exam: Left Upper Extremity: 4, Right Upper Extremity: 4 Additional comments: She is almost AAO 3, waxing and waning. - Psychiatric Exam Psychiatric exam: Normal Affect, Normal Mood Assessment and Plan - Assessment and Plan (Free Text) Assessment: Pneumonia likely 2/2 to immunocomprimised state/post-obstructive pneumonia Pulmonary consult, Dr John Infectious Disease consult, Dr Cook Sepsis on admission Procalcitonin 10.46 (H), Bandemia resolved Blood culture 01/25 shows no growth up to date Imaging: Repeat Chest XRAY 01/29: No significant interval change compared to the prior examination(s). Persistent large right upper lobe infiltrate Repeat Chest XRAY 01/28: Worsening left basilar airspace opacity with pleural effusion. Persistent consolidative changes to the right upper to mid lung zone. Chest CT Angio 01/26: No pulmonary embolism. Consolidation in the posterior aspect of the right upper lobe which may represent an infiltrate/pneumonia. Underlying mass is not evident at this time although this is not entirely excluded particularly given the known probable metastatic liver findings. Short -term follow-up imaging post therapy is recommended. Small right pleural effusion with adjacent atelectasis. Debris and thickening of the right mainstem bronchus, the upper lobe bronchus, and the bronchus intermedius. Numerous hepatic hypodense masses most consistent with metastatic disease. Chest XRAY 01/25: Interval right upper lobe collapse - endobronchial and or surrounding extrinsic compressive causative lesion suspect. Chest CT w/o contrast 01/25: Evidence of partial left lower lobectomy. Extensive opacification of the right upper lobe possibly represents soft tissue mass/malignant neoplasm, pneumonia, and/or postobstructive atelectasis. Correlate clinically. This finding is inseparable from the upper mediastinum and right hilum. The right upper lobe bronchus appears narrowed, possibly occluded. Suspect mucous or neoplasm within the distal right lower lobe bronchus. Small right pleural effusion which dependent consolidation. Numerous hypodense hepatic masses worrisome for metastases. Bilateral mastectomy. Mixed chondroid matrix lesion, right humerus. This may represent enchondroma or chondrosarcoma in the proper clinical setting. Partially imaged L2 compression fracture deformity. Meds: Vancomycin 1g IVPB Q12H, started 01/25, con't IV abx for 10 days (per Dr Cook) Meropenem 1g IVPB Q8H, started 01/25 (Discontinued Cefepime), con't IV abx for 10 days (per Dr Cook) Duoneb INH RQ6 Solumedrol 40mg IV Q12H (changed from Q8H) Acethylcysteine 4ml INH RQ6 Tylenol 650mg PO Q6 PRN Percocet 1 tab PO Q6 PRN for severe pain Pulmonary Embolism found three weeks ago Family members report that recently at [facility] she had a DVT and then a PE; mechanical thrombectomy of PE considered however not done due to low LVEF Cardiology consult, Dr Manuel Chest CT Angio 01/26 showed no pulmonary embolism Troponin I negative x2; Pro-BNP wnl Restarted on Eliquis 5mg PO BID 01/27 Echo 01/29: Normal LVSF. LVH with diastolic dysfunction. Dilated LA. Mild MR. Mild TR. Duplex scan lower extremities 01/27: negative Diastolic CHF Cardiology consult, Dr Manuel Troponin I negative x2; Pro-BNP wnl Echo 01/29: Normal LVSF. LVH with diastolic dysfunction. Dilated LA. Mild MR. Mild TR. 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 Castaneda - hematology/ oncologist [phone] Penaloza discussed with pts family the importance of completing her full antibiotic course before resuming her chemotherapy with her primary oncologist Anemia Likely 2/2 chronic disease and chemotherapy effect transfusion support if hgb < 7 Hg 10.4 on admission Status post 1 unit of PRBC 01/27 She has been on Eliquis for DVT and PE. I explained to the family that will continue with Eliquis for now. However if becomes more anemic may need to discontinue or change to heparin ggt. Per family she has been getting chemotherapy Diabetes HgbA1C: 8.6 Lantus 10u SC QPM (increased from 7u 01/29) Novolin SC ACHS Hypertension PMD recently took her off her home BP meds which included valsartan, norvasc and cardizem History of Lung Cancer S/p left lower lobe lung lobectomy Thyroid Disorder Patient reports having history of thyroid disease, but does not know which type and does not take medications. TSH 0.23 (L), T4 WNL History of UTI Urine Culture 01/25 shows no growth UA 01/25 shows 3+ glucose, 1+ ketones, and 2 urine urobilinogen Anxiety Patient anxious and agitated at bedside 01/29 Per son-in-law, patient takes ativan 1mg at home for anxiety and ambien for sleep; also was on cymbalta Zolpidem 5mg PO HS PRN Ativan 0.5mg PO ONCE 01/29 Prophylactic measure Eliquis 5mg PO BID Pepcid 20mg PO BID Consistent carb/heart health 2Na diet Physical therapy eval and treat <Ravne Douglass - Last Filed: 01/31/17 11:39> Objective - Vital Signs/Intake and Output Vital Signs (last 24 hours): Temp Pulse Resp BP Pulse Ox 97.6 F 84 20 118/77 95 01/30/17 15:49 01/30/17 16:00 01/30/17 15:49 01/30/17 15:49 01/30/17 15:49 Intake and Output: 01/30/17 01/30/17 06:59 18:59 Intake Total 400 Balance 400 - Medications Medications: Current Medications Acetaminophen (Tylenol 325mg Tab) 650 mg PO Q6 PRN PRN Reason: Pain, Mild (1-3) Last Admin: 01/29/17 09:02 Dose: 650 mg Acetylcysteine (Acetylcysteine 20%) 4 ml INH RQ6 [facility] Last Admin: 01/30/17 13:17 Dose: 4 ml Albuterol/Ipratropium (Duoneb 3 Mg/0.5 Mg (3 Ml) Ud) 3 ml INH RQ6 [facility] Last Admin: 01/30/17 13:17 Dose: 3 ml Apixaban (Eliquis) 5 mg PO BID [facility] Last Admin: 01/30/17 09:47 Dose: 5 mg Famotidine (Pepcid) 20 mg PO BID [facility] Last Admin: 01/30/17 09:47 Dose: 20 mg Vancomycin/Sodium Chloride (Vancomycin 1 Gm/Ns 200 Ml) 1 gm in 200 mls @ 133 mls/hr IVPB Q12H [facility] Stop: 01/30/17 17:01 Last Admin: 01/30/17 05:10 Dose: 133 mls/hr Imipenem/Cilastatin Sodium 500 (mg/ Dextrose) 250 mls @ 250 mls/hr IVPB Q6H [facility] Last Admin: 01/30/17 14:25 Dose: 250 mls/hr Insulin Glargine (Lantus) 10 unit SC QPM [facility] Last Admin: 01/29/17 18:59 Dose: 10 units Insulin Human Regular (Novolin R) 0 unit SC ACHS [facility] PRN Reason: Protocol Last Admin: 01/30/17 12:28 Dose: 6 unit Levetiracetam (Keppra) 500 mg PO BID [facility] Last Admin: 01/30/17 09:47 Dose: 500 mg Lorazepam (Ativan) 0.5 mg PO TID PRN PRN Reason: Anxiety Methylprednisolone (Solu-Medrol) 40 mg IVP Q12 [facility] Last Admin: 01/30/17 10:28 Dose: 40 mg Ondansetron HCl (Zofran Inj) 4 mg IVP Q4H PRN PRN Reason: Nausea/Vomiting Oxycodone/Acetaminophen (Percocet 5/325 Mg Tab) 1 tab PO Q6H PRN PRN Reason: Pain, severe (8-10) Stop: 02/02/17 12:48 Potassium Chloride (K-Dur 20 Meq Er Tab) 20 meq PO ONCE ONE Stop: 01/30/17 17:01 Zolpidem Tartrate (Ambien) 5 mg PO HS PRN PRN Reason: Insomnia Last Admin: 01/29/17 22:23 Dose: 5 mg - Labs Labs: 01/30/17 07:05 01/30/17 07:05 Attending/Attestation - Attestation I have personally seen and examined this patient.: Yes I have fully participated in the care of the patient.: Yes I have reviewed all pertinent clinical information, including history, physical exam and plan: Yes Notes (Text): .1 Pneumnonia and immunocomprimised state Pulmonary consult, Dr John Infectious Disease consult, Dr Cook Sepsis ,high procalcitonin and Bandemia on admission Blood culture 01/25 shows no growth up to date. continue Primaxin and vancomycin, d/w Dr Cook need 10days of IV antibiotics taper steroid as per pulmonary d/w DR John.Patient is not ready for discharge Discussed with the patient and her son in Law who works here.Doesn't want to go to rehab 2.Recent Pulmonary embolism mechanical thrombectomy of PE considered however not done due to low LVEF Cardiology consult, Dr Manuel continue Eliquis Chest CT Angio 01/26 showed no pulmonary embolism Echo report Duplex scan lower extremities 01/27: negative 3.Breast cancer with mets follow her oncologist Dr Castaneda Pt has metastatic spread to the brain Keppra 500mg PO BID s/p brain radiotherapy 4. Anemia Tranfusion if Hb<7 5.Diabetes mellitus Her sugar is high.likely due to steroid.On antibiotics with dextrose.D/w Pharmacy.Due to shortage of saline getting with dextrose Increase her insulin Ha1c 8.6 continue insulin/Increase her insulin dose
[2017-01-30 07:14] LABS: BASO % 0.1 % (0.0-2.0); EOS % 0.1 % (0.0-4.0); HEMATOCRIT 33.2 % (34.0-47.0); LYMPH # 0.7 K/uL (1.0-4.3); LYMPH % 11.1 % (20.0-40.0); MEAN CELL VOLUME 88.2 fL (81.0-99.0); MEAN CORPUSCULAR HEMOGLOBIN 29.3 pg (27.0-31.0); MEAN CORPUSCULAR HGB CONC 33.2 g/dL (33.0-37.0); MEAN PLATELET VOLUME 8.5 fL (7.2-11.7); MONO # 0.7 K/uL (0.0-0.8); MONO % 10.8 % (0.0-10.0); NRBC % 1.1 % (0.0-2.0); RED CELL DISTRIBUTION WIDTH 17.5 % (11.5-14.5); WHITE BLOOD COUNT 6.1 K/uL (4.8-10.8)
[2017-01-30 07:56] LABS: ALB/GLOB RATIO 1.2 (1.0-2.1); ALKALINE PHOSPHATASE 61 U/L (38-126); ALT/SGPT 29 U/L (9-52); AST/SGOT 22 U/L (14-36); BILIRUBIN,TOTAL 1.3 mg/dL (0.2-1.3); BLOOD UREA NITROGEN 10 mg/dL (7-17); CALCIUM 7.7 mg/dl (8.6-10.4); CARBON DIOXIDE 32 mmol/L (22-30); CHLORIDE 94 mmol/L (98-107); GFR AFRICAN-AMERICAN > 60; GLUCOSE,RANDOM 298 mg/dL (65-105); MAGNESIUM 1.9 mg/dL (1.6-2.3); PHOSPHOROUS 1.7 mg/dL (2.5-4.5); SODIUM 132 mmol/L (132-148); TOTAL PROTEIN 5.7 g/dL (6.3-8.3)
[2017-01-30] MEDS: (Novolin R) Insulin Human Regular 100 units/ml vial SC SCH ×4 (08:12→21:28)
[2017-01-30] MEDS ORDERED: Potassium Chloride 20 mEq ER Tab PO ONE ×2 (10:09→17:00)
[2017-01-30] MEDS ORDERED: Potassium & Sodium Phosphate PO ONE (10:11)
[2017-01-30] MEDS: MethylPREDNISolone 40 mg Vial IVP SCH ×2 (10:28→21:56)
--- NOTE | 2017-01-30 11:31 | CP.PCM.PN ---
Subjective - Date & Time of Evaluation Date of Evaluation: 01/30/17 Time of Evaluation: 08:00 - Subjective Subjective: improving on empiric rx for post obstructive pneumonia cont rx x 10 days follow up with dr Penaloza Objective - Vital Signs/Intake and Output Vital Signs (last 24 hours): Temp Pulse Resp BP Pulse Ox 98.1 F 82 20 132/74 92 L 01/30/17 08:16 01/30/17 08:16 01/30/17 08:16 01/30/17 08:16 01/30/17 08:16 Intake and Output: 01/30/17 01/30/17 06:59 18:59 Intake Total 400 Balance 400 - Medications Medications: Current Medications Acetaminophen (Tylenol 325mg Tab) 650 mg PO Q6 PRN PRN Reason: Pain, Mild (1-3) Last Admin: 01/29/17 09:02 Dose: 650 mg Acetylcysteine (Acetylcysteine 20%) 4 ml INH RQ6 [facility] Last Admin: 01/30/17 07:28 Dose: 4 ml Albuterol/Ipratropium (Duoneb 3 Mg/0.5 Mg (3 Ml) Ud) 3 ml INH RQ6 [facility] Last Admin: 01/30/17 07:28 Dose: 3 ml Apixaban (Eliquis) 5 mg PO BID [facility] Last Admin: 01/30/17 09:47 Dose: 5 mg Famotidine (Pepcid) 20 mg PO BID [facility] Last Admin: 01/30/17 09:47 Dose: 20 mg Vancomycin/Sodium Chloride (Vancomycin 1 Gm/Ns 200 Ml) 1 gm in 200 mls @ 133 mls/hr IVPB Q12H [facility] Stop: 01/30/17 17:01 Last Admin: 01/30/17 05:10 Dose: 133 mls/hr Imipenem/Cilastatin Sodium 500 (mg/ Dextrose) 250 mls @ 250 mls/hr IVPB Q6H [facility] Insulin Glargine (Lantus) 10 unit SC QPM [facility] Last Admin: 01/29/17 18:59 Dose: 10 units Insulin Human Regular (Novolin R) 0 unit SC ACHS [facility] PRN Reason: Protocol Last Admin: 01/30/17 08:12 Dose: 6 unit Levetiracetam (Keppra) 500 mg PO BID [facility] Last Admin: 12/19/17 09:47 Dose: 500 mg Lorazepam (Ativan) 0.5 mg PO TID PRN PRN Reason: Anxiety Methylprednisolone (Solu-Medrol) 40 mg IVP Q12 [facility] Last Admin: 01/30/17 10:28 Dose: 40 mg Ondansetron HCl (Zofran Inj) 4 mg IVP Q4H PRN PRN Reason: Nausea/Vomiting Zolpidem Tartrate (Ambien) 5 mg PO HS PRN PRN Reason: Insomnia Last Admin: 01/29/17 22:23 Dose: 5 mg - Labs Labs: 01/30/17 07:05 01/30/17 07:05 - Constitutional Appears: Non-toxic, Confused, Cachectic, Chronically Ill - Head Exam Head Exam: NORMOCEPHALIC - Eye Exam Eye Exam: PERRL. absent: Scleral icterus - ENT Exam ENT Exam: Mucous Membranes Dry - Neck Exam Neck Exam: absent: Lymphadenopathy - Respiratory Exam Respiratory Exam: Decreased Breath Sounds - Cardiovascular Exam Cardiovascular Exam: REGULAR RHYTHM - GI/Abdominal Exam GI & Abdominal Exam: Distended - Rectal Exam Rectal Exam: Deferred Assessment and Plan (1) Diabetes Status: Acute (2) History of UTI Status: Acute (3) Pleural effusion Status: Acute (4) Pneumonia Status: Acute (5) Shortness of breath Status: Acute
[2017-01-30] MEDS: Imipenem/Cilastatin 500 MG in Dextrose 5% In Water 250 ML IVPB SCH ×2 (14:25→21:52)
--- NOTE | 2017-01-30 15:11 | CP.PCM.PN ---
Subjective - Date & Time of Evaluation Date of Evaluation: 01/30/17 Time of Evaluation: 10:15 - Subjective Subjective: Patient seen and examined Complaining of dyspnea on minimal exertion Using BiPAP at night Being treated for pneumonia Afebrile Objective - Vital Signs/Intake and Output Vital Signs (last 24 hours): Temp Pulse Resp BP Pulse Ox 98.1 F 82 20 132/74 92 L 01/30/17 08:16 01/30/17 08:16 01/30/17 08:16 01/30/17 08:16 01/30/17 08:16 Intake and Output: 01/30/17 01/30/17 06:59 18:59 Intake Total 400 Balance 400 - Medications Medications: Current Medications Acetaminophen (Tylenol 325mg Tab) 650 mg PO Q6 PRN PRN Reason: Pain, Mild (1-3) Last Admin: 01/29/17 09:02 Dose: 650 mg Acetylcysteine (Acetylcysteine 20%) 4 ml INH RQ6 [facility] Last Admin: 01/30/17 13:17 Dose: 4 ml Albuterol/Ipratropium (Duoneb 3 Mg/0.5 Mg (3 Ml) Ud) 3 ml INH RQ6 [facility] Last Admin: 01/30/17 13:17 Dose: 3 ml Apixaban (Eliquis) 5 mg PO BID [facility] Last Admin: 01/30/17 09:47 Dose: 5 mg Famotidine (Pepcid) 20 mg PO BID [facility] Last Admin: 01/30/17 09:47 Dose: 20 mg Vancomycin/Sodium Chloride (Vancomycin 1 Gm/Ns 200 Ml) 1 gm in 200 mls @ 133 mls/hr IVPB Q12H [facility] Stop: 01/30/17 17:01 Last Admin: 01/30/17 05:10 Dose: 133 mls/hr Imipenem/Cilastatin Sodium 500 (mg/ Dextrose) 250 mls @ 250 mls/hr IVPB Q6H [facility] Last Admin: 01/30/17 14:25 Dose: 250 mls/hr Insulin Glargine (Lantus) 10 unit SC QPM [facility] Last Admin: 01/29/17 18:59 Dose: 10 units Insulin Human Regular (Novolin R) 0 unit SC ACHS [facility] PRN Reason: Protocol Last Admin: 01/30/17 12:28 Dose: 6 unit Levetiracetam (Keppra) 500 mg PO BID [facility] Last Admin: 01/30/17 09:47 Dose: 500 mg Lorazepam (Ativan) 0.5 mg PO TID PRN PRN Reason: Anxiety Methylprednisolone (Solu-Medrol) 40 mg IVP Q12 [facility] Last Admin: 01/30/17 10:28 Dose: 40 mg Ondansetron HCl (Zofran Inj) 4 mg IVP Q4H PRN PRN Reason: Nausea/Vomiting Oxycodone/Acetaminophen (Percocet 5/325 Mg Tab) 1 tab PO Q6H PRN PRN Reason: Pain, severe (8-10) Stop: 02/02/17 12:48 Potassium Chloride (K-Dur 20 Meq Er Tab) 20 meq PO ONCE ONE Stop: 01/30/17 17:01 Zolpidem Tartrate (Ambien) 5 mg PO HS PRN PRN Reason: Insomnia Last Admin: 01/29/17 22:23 Dose: 5 mg - Labs Labs: 01/30/17 07:05 01/30/17 07:05 - Head Exam Head Exam: ATRAUMATIC, NORMOCEPHALIC - ENT Exam ENT Exam: Mucous Membranes Moist - Neck Exam Neck Exam: Normal Inspection - Respiratory Exam Respiratory Exam: Decreased Breath Sounds - Cardiovascular Exam Cardiovascular Exam: REGULAR RHYTHM - GI/Abdominal Exam GI & Abdominal Exam: Soft, Normal Bowel Sounds - Extremities Exam Extremities Exam: Normal Inspection - Neurological Exam Neurological Exam: Alert Assessment and Plan (1) Pneumonia Assessment & Plan: Continue antibiotics per infectious disease Bronchodilators Taper IV steroids BiPAP Status: Acute (2) Shortness of breath Status: Acute
[2017-01-30] MEDS: Oxycodone/Acetaminophen 5/325 mg Tab PO PRN (17:09)
[2017-01-30] MEDS: (Lantus) Insulin Glargine, Recombinant SC SCH (17:10)
[2017-01-30] MEDS ORDERED: (Lantus) Insulin Glargine, Recombinant SC SCH (17:59)
[2017-01-30] MEDS ORDERED: (Lantus) Insulin Glargine, Recombinant SC ONE ×2 (18:31→21:58)
--- NOTE | 2017-01-30 18:48 | CP.PCM.PN ---
Subjective - Date & Time of Evaluation Date of Evaluation: 01/30/17 Time of Evaluation: 15:20 - Subjective Subjective: Has shortness of breath with exertion Objective - Vital Signs/Intake and Output Vital Signs (last 24 hours): Temp Pulse Resp BP Pulse Ox 97.6 F 84 20 118/77 95 01/30/17 15:49 01/30/17 16:00 01/30/17 15:49 01/30/17 15:49 01/30/17 15:49 Intake and Output: 01/30/17 01/30/17 06:59 18:59 Intake Total 400 Balance 400 - Medications Medications: Current Medications Acetaminophen (Tylenol 325mg Tab) 650 mg PO Q6 PRN PRN Reason: Pain, Mild (1-3) Last Admin: 01/29/17 09:02 Dose: 650 mg Acetylcysteine (Acetylcysteine 20%) 4 ml INH RQ6 [facility] Last Admin: 01/30/17 13:17 Dose: 4 ml Albuterol/Ipratropium (Duoneb 3 Mg/0.5 Mg (3 Ml) Ud) 3 ml INH RQ6 [facility] Last Admin: 01/30/17 13:17 Dose: 3 ml Apixaban (Eliquis) 5 mg PO BID [facility] Last Admin: 01/30/17 17:09 Dose: 5 mg Famotidine (Pepcid) 20 mg PO BID [facility] Last Admin: 01/30/17 17:09 Dose: 20 mg Imipenem/Cilastatin Sodium 500 (mg/ Dextrose) 250 mls @ 250 mls/hr IVPB Q6H [facility] Last Admin: 01/30/17 14:25 Dose: 250 mls/hr Insulin Glargine (Lantus) 12 unit SC HS [facility] Insulin Human Regular (Novolin R) 0 unit SC ACHS [facility] PRN Reason: Protocol Levetiracetam (Keppra) 500 mg PO BID [facility] Last Admin: 01/30/17 17:09 Dose: 500 mg Lorazepam (Ativan) 0.5 mg PO TID PRN PRN Reason: Anxiety Methylprednisolone (Solu-Medrol) 40 mg IVP Q12 [facility] Last Admin: 01/30/17 10:28 Dose: 40 mg Ondansetron HCl (Zofran Inj) 4 mg IVP Q4H PRN PRN Reason: Nausea/Vomiting Oxycodone/Acetaminophen (Percocet 5/325 Mg Tab) 1 tab PO Q6H PRN PRN Reason: Pain, severe (8-10) Stop: 02/02/17 12:48 Last Admin: 01/30/17 17:09 Dose: 1 tab Zolpidem Tartrate (Ambien) 5 mg PO HS PRN PRN Reason: Insomnia Last Admin: 01/29/17 22:23 Dose: 5 mg - Labs Labs: 01/30/17 07:05 01/30/17 07:05 - Head Exam Head Exam: ATRAUMATIC - Eye Exam Eye Exam: Normal appearance - ENT Exam ENT Exam: Mucous Membranes Dry - Respiratory Exam Respiratory Exam: Decreased Breath Sounds - Cardiovascular Exam Cardiovascular Exam: +S1, +S2 - GI/Abdominal Exam GI & Abdominal Exam: Normal Bowel Sounds Assessment and Plan (1) Breast cancer Assessment & Plan: brain, lung, liver, ?bone mets s/p brain radiotherapy on outpatient chemotherapy at [facility] discussed with pts family the importance of completing her full antibiotic course before resuming her chemotherapy with her primary oncologist Status: Acute (2) Anemia Assessment & Plan: chronic disease and chemotherapy Status: Acute
[2017-01-31] MEDS: Acetylcysteine 20% Inhal Soln (4ml) INH SCH ×5 (02:53→19:10)
[2017-01-31] MEDS: Albuterol-Ipratrop 3 mg / 0.5 (3 ml) UD INH SCH ×5 (02:53→19:10)
[2017-01-31] MEDS: Imipenem/Cilastatin 500 MG in Dextrose 5% In Water 250 ML IVPB SCH ×3 (03:40→14:41)
--- NOTE | 2017-01-31 06:50 | CP.PCM.PN ---
<Toney Sheikh R - Last Filed: 01/31/17 14:40> Subjective - Date & Time of Evaluation Date of Evaluation: 01/31/17 Time of Evaluation: 06:48 - Subjective Subjective: PGY-[address] Douglass. No acute events overnight noted. Patient did not have any complaints today. Patient denies chest pain, abdominal pain, shortness of breath, nausea, vomiting , fevers, chills, diarrhea. Objective - Vital Signs/Intake and Output Vital Signs (last 24 hours): Temp Pulse Resp BP Pulse Ox 98.5 F 62 20 148/82 96 01/31/17 04:15 01/31/17 04:15 01/31/17 04:15 01/31/17 04:15 01/30/17 23:30 - Medications Medications: Current Medications Acetaminophen (Tylenol 325mg Tab) 650 mg PO Q6 PRN PRN Reason: Pain, Mild (1-3) Last Admin: 01/31/17 05:35 Dose: 650 mg Acetylcysteine (Acetylcysteine 20%) 4 ml INH RQ6 [facility]INA Last Admin: 01/31/17 04:11 Dose: 4 ml Albuterol/Ipratropium (Duoneb 3 Mg/0.5 Mg (3 Ml) Ud) 3 ml INH RQ6 MARCELINA Last Admin: 01/31/17 04:11 Dose: 3 ml Apixaban (Eliquis) 5 mg PO BID [facility] Last Admin: 01/30/17 17:09 Dose: 5 mg Famotidine (Pepcid) 20 mg PO BID [facility] Last Admin: 01/30/17 17:09 Dose: 20 mg Imipenem/Cilastatin Sodium 500 (mg/ Dextrose) 250 mls @ 250 mls/hr IVPB Q6H [facility] Last Admin: 01/31/17 03:40 Dose: 250 mls/hr Insulin Glargine (Lantus) 12 unit SC HS M[facility]ELINA Insulin Human Regular (Novolin R) 0 unit SC ACHS MARCELINA PRN Reason: Protocol Last Admin: 01/30/17 21:28 Dose: Not Given Levetiracetam (Keppra) 500 mg PO BID [facility] Last Admin: 01/30/17 17:09 Dose: 500 mg Lorazepam (Ativan) 0.5 mg PO TID PRN PRN Reason: Anxiety Methylprednisolone (Solu-Medrol) 40 mg IVP Q12 [facility]INA Last Admin: 01/30/17 21:56 Dose: 40 mg Ondansetron HCl (Zofran Inj) 4 mg IVP Q4H PRN PRN Reason: Nausea/Vomiting Last Admin: 01/31/17 04:02 Dose: 4 mg Oxycodone/Acetaminophen (Percocet 5/325 Mg Tab) 1 tab PO Q6H PRN PRN Reason: Pain, severe (8-10) Stop: 02/02/17 12:48 Last Admin: 01/30/17 17:09 Dose: 1 tab Zolpidem Tartrate (Ambien) 5 mg PO HS PRN PRN Reason: Insomnia Last Admin: 01/29/17 22:23 Dose: 5 mg - Labs Labs: 01/30/17 07:05 01/30/17 07:05 - Additional Findings Additional findings: - Constitutional Appears: No Acute Distress, Older Than Stated Age, Cachectic, Chronically Ill - Head Exam Additional comments: Recent chemo, hair loss - Eye Exam Eye Exam: EOMI, Normal appearance - ENT Exam ENT Exam: Mucous Membranes Moist - Respiratory Exam Respiratory Exam: Decreased Breath Sounds, Rales, Rhonchi Additional comments: Bilaterall rales and rhonchi, R > L, much improved since admission - Cardiovascular Exam Cardiovascular Exam: REGULAR RHYTHM - GI/Abdominal Exam GI & Abdominal Exam: Soft, Normal Bowel Sounds. absent: Firm, Guarding, Rigid, Tenderness - Neurological Exam Neurological Exam: Alert, Awake Neuro motor strength exam: Left Upper Extremity: 4, Right Upper Extremity: 4 Additional comments: She is almost AAO 3, waxing and waning. - Psychiatric Exam Psychiatric exam: Normal Affect, Normal Mood Assessment and Plan - Assessment and Plan (Free Text) Assessment: Pneumonia likely 2/2 to immunocomprimised state/post-obstructive pneumonia Pulmonary consult, Dr John Infectious Disease consult, Dr Cook Sepsis on admission Procalcitonin 10.46 (H), Bandemia resolved Blood culture 01/25 shows no growth up to date Imaging: Repeat Chest XRAY 01/29: No significant interval change compared to the prior examination(s). Persistent large right upper lobe infiltrate Repeat Chest XRAY 01/28: Worsening left basilar airspace opacity with pleural effusion. Persistent consolidative changes to the right upper to mid lung zone. Chest CT Angio 01/26: No pulmonary embolism. Consolidation in the posterior aspect of the right upper lobe which may represent an infiltrate/pneumonia. Underlying mass is not evident at this time although this is not entirely excluded particularly given the known probable metastatic liver findings. Short -term follow-up imaging post therapy is recommended. Small right pleural effusion with adjacent atelectasis. Debris and thickening of the right mainstem bronchus, the upper lobe bronchus, and the bronchus intermedius. Numerous hepatic hypodense masses most consistent with metastatic disease. Chest XRAY 01/25: Interval right upper lobe collapse - endobronchial and or surrounding extrinsic compressive causative lesion suspect. Chest CT w/o contrast 01/25: Evidence of partial left lower lobectomy. Extensive opacification of the right upper lobe possibly represents soft tissue mass/malignant neoplasm, pneumonia, and/or postobstructive atelectasis. Correlate clinically. This finding is inseparable from the upper mediastinum and right hilum. The right upper lobe bronchus appears narrowed, possibly occluded. Suspect mucous or neoplasm within the distal right lower lobe bronchus. Small right pleural effusion which dependent consolidation. Numerous hypodense hepatic masses worrisome for metastases. Bilateral mastectomy. Mixed chondroid matrix lesion, right humerus. This may represent enchondroma or chondrosarcoma in the proper clinical setting. Partially imaged L2 compression fracture deformity. Meds: Discontinued Vancomycin 1g IVPB Q12H, started 01/25, STOPPED 01/31 Imipenem/Cilastin 500mg IVPB Q6H, started 01/25 (Discontinued Cefepime), con't IV abx for 10 days (per Dr Cook) Duoneb INH RQ6 Prednisone 40mg PO QD (steroid taper) Acethylcysteine 4ml INH RQ6 Tylenol 650mg PO Q6 PRN Percocet 1 tab PO Q6 PRN for severe pain Pulmonary Embolism found three weeks ago Family members report that recently at [facility] she had a DVT and then a PE; mechanical thrombectomy of PE considered however not done due to low LVEF Cardiology consult, Dr Manuel Chest CT Angio 01/26 showed no pulmonary embolism Troponin I negative x2; Pro-BNP wnl Restarted on Eliquis 5mg PO BID 01/27 Echo 01/29: Normal LVSF. LVH with diastolic dysfunction. Dilated LA. Mild MR. Mild TR. Duplex scan lower extremities 01/27: negative Diastolic CHF Cardiology consult, Dr Manuel Troponin I negative x2; Pro-BNP wnl Echo 01/29: Normal LVSF. LVH with diastolic dysfunction. Dilated LA. Mild MR. Mild TR. 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 Castaneda - hematology/ oncologist [phone] Penaloza discussed with pts family the importance of completing her full antibiotic course before resuming her chemotherapy with her primary oncologist Anemia Likely 2/2 chronic disease and chemotherapy effect transfusion support if hgb < 7 Hg 10.4 on admission Status post 1 unit of PRBC 01/27 She has been on Eliquis for DVT and PE. I explained to the family that will continue with Eliquis for now. However if becomes more anemic may need to discontinue or change to heparin ggt. Per family she has been getting chemotherapy Diabetes HgbA1C: 8.6 Lantus 10u SC QPM (increased from 7u 01/29) Novolin SC ACHS Hypertension PMD recently took her off her home BP meds which included valsartan, norvasc and cardizem History of Lung Cancer S/p left lower lobe lung lobectomy Thyroid Disorder Patient reports having history of thyroid disease, but does not know which type and does not take medications. TSH 0.23 (L), T4 WNL History of UTI Urine Culture 01/25 shows no growth UA 01/25 shows 3+ glucose, 1+ ketones, and 2 urine urobilinogen Anxiety Patient anxious and agitated at bedside 01/29 Per son-in-law, patient takes ativan 1mg at home for anxiety and ambien for sleep; also was on cymbalta Zolpidem 5mg PO HS PRN Ativan 0.5mg PO ONCE 01/29 Prophylactic measure Eliquis 5mg PO BID Pepcid 20mg PO BID Consistent carb/heart health 2Na diet Physical therapy eval and treat <Raven Douglass - Last Filed: 01/31/17 18:04> Objective - Vital Signs/Intake and Output Vital Signs (last 24 hours): Temp Pulse Resp BP Pulse Ox 97.8 F 67 20 132/61 95 01/31/17 16:00 01/31/17 16:00 01/31/17 16:00 01/31/17 16:00 01/31/17 16:00 - Medications Medications: Current Medications Acetaminophen (Tylenol 325mg Tab) 650 mg PO Q6 PRN PRN Reason: Pain, Mild (1-3) Last Admin: 01/31/17 05:35 Dose: 650 mg Acetylcysteine (Acetylcysteine 20%) 4 ml INH RQ6 [facility]ELINA Last Admin: 01/31/17 13:07 Dose: 4 ml Albuterol/Ipratropium (Duoneb 3 Mg/0.5 Mg (3 Ml) Ud) 3 ml INH RQ6 MARCELINA Last Admin: 01/31/17 13:06 Dose: 3 ml Apixaban (Eliquis) 5 mg PO BID [facility] Last Admin: 01/31/17 11:01 Dose: 5 mg Famotidine (Pepcid) 20 mg PO BID [facility] Last Admin: 01/31/17 10:59 Dose: 20 mg Imipenem/Cilastatin Sodium 500 (mg/ Sodium Chloride) 100 mls @ 250 mls/hr IVPB Q6H [facility] Insulin Glargine (Lantus) 12 unit SC HS MARCELINA Insulin Human Regular (Novolin R) 0 unit SC ACHS MARCELINA PRN Reason: Protocol Last Admin: 01/31/17 12:32 Dose: 6 unit Levetiracetam (Keppra) 500 mg PO BID [facility] Last Admin: 01/31/17 10:59 Dose: 500 mg Lorazepam (Ativan) 0.5 mg PO TID PRN PRN Reason: Anxiety Ondansetron HCl (Zofran Inj) 4 mg IVP Q4H PRN PRN Reason: Nausea/Vomiting Last Admin: 01/31/17 04:02 Dose: 4 mg Oxycodone/Acetaminophen (Percocet 5/325 Mg Tab) 1 tab PO Q6H PRN PRN Reason: Pain, severe (8-10) Stop: 02/02/17 12:48 Last Admin: 01/31/17 08:40 Dose: 1 tab Prednisone (Prednisone Tab) 40 mg PO DAILY [facility] Zolpidem Tartrate (Ambien) 5 mg PO HS PRN PRN Reason: Insomnia Last Admin: 01/29/17 22:23 Dose: 5 mg - Labs Labs: 01/31/17 13:55 01/31/17 13:55 Attending/Attestation - Attestation I have personally seen and examined this patient.: Yes I have fully participated in the care of the patient.: Yes I have reviewed all pertinent clinical information, including history, physical exam and plan: Yes Notes (Text): Patient feels better lying on bed without discomfort Unable to get blood this morning,poor venous access.no blood return from [facility] cath and s/p cathflo continue antibiotics switch to oral prednisone
[2017-01-31] MEDS: (Novolin R) Insulin Human Regular 100 units/ml vial SC SCH ×4 (08:23→21:42)
[2017-01-31] MEDS: Oxycodone/Acetaminophen 5/325 mg Tab PO PRN (08:40)
[2017-01-31] MEDS: MethylPREDNISolone 40 mg Vial IVP SCH (10:57)
[2017-01-31 14:03] LABS: BASO % 0.3 % (0.0-2.0); HEMATOCRIT 34.4 % (34.0-47.0); LYMPH # 0.8 K/uL (1.0-4.3); MEAN CELL VOLUME 88.7 fL (81.0-99.0); MEAN CORPUSCULAR HEMOGLOBIN 29.7 pg (27.0-31.0); MEAN CORPUSCULAR HGB CONC 33.5 g/dL (33.0-37.0); MEAN PLATELET VOLUME 8.6 fL (7.2-11.7); MONO # 0.8 K/uL (0.0-0.8); MONO % 8.9 % (0.0-10.0); NRBC % 1.2 % (0.0-2.0); PLATELET COUNT 375 K/uL (130-400); RED CELL DISTRIBUTION WIDTH 17.7 % (11.5-14.5); WHITE BLOOD COUNT 8.7 K/uL (4.8-10.8)
[2017-01-31 14:24] LABS: ALB/GLOB RATIO 0.8 (1.0-2.1); ALKALINE PHOSPHATASE 63 U/L (38-126); ALT/SGPT 23 U/L (9-52); AST/SGOT 16 U/L (14-36); BLOOD UREA NITROGEN 9 mg/dL (7-17); CARBON DIOXIDE 31 mmol/L (22-30); CHLORIDE 93 mmol/L (98-107); GFR AFRICAN-AMERICAN > 60; GLUCOSE,RANDOM 257 mg/dL (65-105); MAGNESIUM 1.9 mg/dL (1.6-2.3); PHOSPHOROUS 1.9 mg/dL (2.5-4.5); POTASSIUM 3.3 mmol/L (3.6-5.2); SODIUM 130 mmol/L (132-148); TOTAL PROTEIN 6.8 g/dL (6.3-8.3)
--- NOTE | 2017-01-31 14:44 | CP.PCM.PN ---
Subjective - Date & Time of Evaluation Date of Evaluation: 01/31/17 Time of Evaluation: 14:34 - Subjective Subjective: Coverage for Dr John Pt seen and examined Comfortable Afebrile Objective - Vital Signs/Intake and Output Vital Signs (last 24 hours): Temp Pulse Resp BP Pulse Ox 98.3 F 87 18 130/81 98 01/31/17 08:10 01/31/17 08:10 01/31/17 08:10 01/31/17 08:10 01/31/17 08:10 - Medications Medications: Current Medications Acetaminophen (Tylenol 325mg Tab) 650 mg PO Q6 PRN PRN Reason: Pain, Mild (1-3) Last Admin: 01/31/17 05:35 Dose: 650 mg Acetylcysteine (Acetylcysteine 20%) 4 ml INH RQ6 MARCELINA Last Admin: 01/31/17 13:07 Dose: 4 ml Albuterol/Ipratropium (Duoneb 3 Mg/0.5 Mg (3 Ml) Ud) 3 ml INH RQ6 M[facility]ELINA Last Admin: 01/31/17 13:06 Dose: 3 ml Apixaban (Eliquis) 5 mg PO BID [facility] Last Admin: 01/31/17 11:01 Dose: 5 mg Famotidine (Pepcid) 20 mg PO BID [facility] Last Admin: 01/31/17 10:59 Dose: 20 mg Imipenem/Cilastatin Sodium 500 (mg/ Dextrose) 250 mls @ 250 mls/hr IVPB Q6H [facility] Last Admin: 01/31/17 08:41 Dose: 250 mls/hr Insulin Glargine (Lantus) 12 unit SC HS MARCELINA Insulin Human Regular (Novolin R) 0 unit SC ACHS MARCELINA PRN Reason: Protocol Last Admin: 01/31/17 12:32 Dose: 6 unit Levetiracetam (Keppra) 500 mg PO BID [facility] Last Admin: 01/31/17 10:59 Dose: 500 mg Lorazepam (Ativan) 0.5 mg PO TID PRN PRN Reason: Anxiety Ondansetron HCl (Zofran Inj) 4 mg IVP Q4H PRN PRN Reason: Nausea/Vomiting Last Admin: 01/31/17 04:02 Dose: 4 mg Oxycodone/Acetaminophen (Percocet 5/325 Mg Tab) 1 tab PO Q6H PRN PRN Reason: Pain, severe (8-10) Stop: 02/02/17 12:48 Last Admin: 01/31/17 08:40 Dose: 1 tab Prednisone (Prednisone Tab) 40 mg PO DAILY [facility] Zolpidem Tartrate (Ambien) 5 mg PO HS PRN PRN Reason: Insomnia Last Admin: 01/29/17 22:23 Dose: 5 mg - Labs Labs: 01/31/17 13:55 01/31/17 13:55 - Head Exam Head Exam: NORMAL INSPECTION - Eye Exam Eye Exam: Normal appearance - ENT Exam ENT Exam: Mucous Membranes Moist - Respiratory Exam Respiratory Exam: Clear to Ausculation Bilateral - Cardiovascular Exam Cardiovascular Exam: REGULAR RHYTHM, +S1, +S2 - GI/Abdominal Exam GI & Abdominal Exam: Soft, Normal Bowel Sounds - Extremities Exam Extremities Exam: Normal Inspection - Neurological Exam Neurological Exam: Alert, Oriented x3 - Psychiatric Exam Psychiatric exam: Normal Affect, Normal Mood - Skin Skin Exam: Normal Color Assessment and Plan (1) Pneumonia Status: Acute (2) Shortness of breath Status: Acute - Assessment and Plan (Free Text) Plan: Continue Abx Off BiPAP Bronchodilators Taper steroids Supportive care
[2017-01-31 14:51] LABS: LARGE PLATELETS PRESENT; NEUTROPHIL 64 % (50-75); TOTAL CELLS COUNTED 100
[2017-01-31] MEDS ORDERED: Potassium Chloride 20 mEq/15 ml LIQ UD PO ONE (15:15)
[2017-01-31] MEDS: (Lantus) Insulin Glargine, Recombinant SC SCH (21:40)
[2017-02-01] MEDS: Acetylcysteine 20% Inhal Soln (4ml) INH SCH ×5 (02:27→20:02)
[2017-02-01] MEDS: Albuterol-Ipratrop 3 mg / 0.5 (3 ml) UD INH SCH ×6 (02:27→20:02)
--- NOTE | 2017-02-01 07:32 | CP.PCM.PN ---
<Toney Sheikh R - Last Filed: 02/01/17 15:16> Subjective - Date & Time of Evaluation Date of Evaluation: 02/01/17 Time of Evaluation: 07:29 - Subjective Subjective: PGY-[address] Douglass. No acute events overnight noted. Yesterday evening, aletplase 2mg was administered in left chest portacath to relieve obstruction. She was s/e sitting in chair with family member present. She asked to be discharged. Today patient denies chest pain, abdominal pain, shortness of breath, nausea, vomiting , fever, chills, diarrhea. Objective - Vital Signs/Intake and Output Vital Signs (last 24 hours): Temp Pulse Resp BP Pulse Ox 97.7 F 64 20 156/80 H 95 02/01/17 04:16 02/01/17 04:16 02/01/17 04:16 02/01/17 04:16 02/01/17 04:16 Intake and Output: 02/01/17 02/01/17 06:59 18:59 Intake Total 300 Balance 300 - Medications Medications: Current Medications Acetaminophen (Tylenol 325mg Tab) 650 mg PO Q6 PRN PRN Reason: Pain, Mild (1-3) Last Admin: 01/31/17 18:43 Dose: 650 mg Acetylcysteine (Acetylcysteine 20%) 4 ml INH RQ6 MARCELINA Last Admin: 02/01/17 02:35 Dose: 4 ml Albuterol/Ipratropium (Duoneb 3 Mg/0.5 Mg (3 Ml) Ud) 3 ml INH RQ6 MARCELINA Last Admin: 02/01/17 02:35 Dose: 3 ml Apixaban (Eliquis) 5 mg PO BID [facility] Last Admin: 01/31/17 18:00 Dose: 5 mg Famotidine (Pepcid) 20 mg PO BID [facility] Last Admin: 01/31/17 18:00 Dose: 20 mg Imipenem/Cilastatin Sodium 500 (mg/ Sodium Chloride) 100 mls @ 250 mls/hr IVPB Q6H [facility] Last Admin: 02/01/17 02:54 Dose: 250 mls/hr Insulin Glargine (Lantus) 12 unit SC HS MARCELINA Last Admin: 01/31/17 21:40 Dose: 12 units Insulin Human Regular (Novolin R) 0 unit SC ACHS MARCELINA PRN Reason: Protocol Last Admin: 01/31/17 21:42 Dose: 2 unit Levetiracetam (Keppra) 500 mg PO BID [facility] Last Admin: 01/31/17 18:00 Dose: 500 mg Lorazepam (Ativan) 0.5 mg PO TID PRN PRN Reason: Anxiety Last Admin: 01/31/17 18:41 Dose: 0.5 mg Ondansetron HCl (Zofran Inj) 4 mg IVP Q4H PRN PRN Reason: Nausea/Vomiting Last Admin: 01/31/17 04:02 Dose: 4 mg Oxycodone/Acetaminophen (Percocet 5/325 Mg Tab) 1 tab PO Q6H PRN PRN Reason: Pain, severe (8-10) Stop: 02/02/17 12:48 Last Admin: 01/31/17 08:40 Dose: 1 tab Prednisone (Prednisone Tab) 40 mg PO DAILY [facility] Last Admin: 01/31/17 17:59 Dose: 40 mg Zolpidem Tartrate (Ambien) 5 mg PO HS PRN PRN Reason: Insomnia Last Admin: 01/29/17 22:23 Dose: 5 mg - Labs Labs: 01/31/17 13:55 01/31/17 13:55 - Additional Findings Additional findings: - Constitutional Appears: No Acute Distress, Older Than Stated Age, Cachectic, Chronically Ill - Head Exam Additional comments: Recent chemo, hair loss - Eye Exam Eye Exam: EOMI, Normal appearance - ENT Exam ENT Exam: Mucous Membranes Moist - Respiratory Exam Respiratory Exam: Decreased Breath Sounds, Rales, Rhonchi Additional comments: Bilaterall rales and rhonchi, R > L, much improved since admission - Cardiovascular Exam Cardiovascular Exam: REGULAR RHYTHM - GI/Abdominal Exam GI & Abdominal Exam: Soft, Normal Bowel Sounds. absent: Firm, Guarding, Rigid, Tenderness - Neurological Exam Neurological Exam: Alert, Awake Neuro motor strength exam: Left Upper Extremity: 4, Right Upper Extremity: 4 Additional comments: She is almost AAO 3, waxing and waning. - Psychiatric Exam Psychiatric exam: Normal Affect, Normal Mood Assessment and Plan - Assessment and Plan (Free Text) Assessment: Pneumonia likely 2/2 to immunocomprimised state/post-obstructive pneumonia Pulmonary consult, Dr John Infectious Disease consult, Dr Cook Sepsis on admission Procalcitonin 10.46 (H), Bandemia resolved Blood culture 01/25 shows no growth up to date Imaging: Repeat Chest XRAY 01/29: No significant interval change compared to the prior examination(s). Persistent large right upper lobe infiltrate Repeat Chest XRAY 01/28: Worsening left basilar airspace opacity with pleural effusion. Persistent consolidative changes to the right upper to mid lung zone. Chest CT Angio 01/26: No pulmonary embolism. Consolidation in the posterior aspect of the right upper lobe which may represent an infiltrate/pneumonia. Underlying mass is not evident at this time although this is not entirely excluded particularly given the known probable metastatic liver findings. Short -term follow-up imaging post therapy is recommended. Small right pleural effusion with adjacent atelectasis. Debris and thickening of the right mainstem bronchus, the upper lobe bronchus, and the bronchus intermedius. Numerous hepatic hypodense masses most consistent with metastatic disease. Chest XRAY 01/25: Interval right upper lobe collapse - endobronchial and or surrounding extrinsic compressive causative lesion suspect. Chest CT w/o contrast 01/25: Evidence of partial left lower lobectomy. Extensive opacification of the right upper lobe possibly represents soft tissue mass/malignant neoplasm, pneumonia, and/or postobstructive atelectasis. Correlate clinically. This finding is inseparable from the upper mediastinum and right hilum. The right upper lobe bronchus appears narrowed, possibly occluded. Suspect mucous or neoplasm within the distal right lower lobe bronchus. Small right pleural effusion which dependent consolidation. Numerous hypodense hepatic masses worrisome for metastases. Bilateral mastectomy. Mixed chondroid matrix lesion, right humerus. This may represent enchondroma or chondrosarcoma in the proper clinical setting. Partially imaged L2 compression fracture deformity. Meds: Discontinued Vancomycin 1g IVPB Q12H, started 01/25, STOPPED 01/31 Imipenem/Cilastin 500mg IVPB Q6H, started 01/25 (Discontinued Cefepime), con't IV abx for 10 days (per Dr Cook) Duoneb INH RQ6 Prednisone 30mg PO QD (steroid taper) Acethylcysteine 4ml INH RQ6 Tylenol 650mg PO Q6 PRN Percocet 1 tab PO Q6 PRN for severe pain Pulmonary Embolism found three weeks ago Family members report that recently at [facility] [place] she had a DVT and then a PE; mechanical thrombectomy of PE considered however not done due to low LVEF Cardiology consult, Dr Manuel Chest CT Angio 01/26 showed no pulmonary embolism Troponin I negative x2; Pro-BNP wnl Restarted on Eliquis 5mg PO BID 01/27 Echo 01/29: Normal LVSF. LVH with diastolic dysfunction. Dilated LA. Mild MR. Mild TR. Duplex scan lower extremities 01/27: negative Diastolic CHF Cardiology consult, Dr Manuel Troponin I negative x2; Pro-BNP wnl Echo 01/29: Normal LVSF. LVH with diastolic dysfunction. Dilated LA. Mild MR. Mild TR. 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 Castaneda - hematology/ oncologist [phone] Penaloza discussed with pts family the importance of completing her full antibiotic course before resuming her chemotherapy with her primary oncologist Anemia Likely 2/2 chronic disease and chemotherapy effect transfusion support if hgb < 7 Hg 10.4 on admission Status post 1 unit of PRBC 01/27 She has been on Eliquis for DVT and PE. I explained to the family that will continue with Eliquis for now. However if becomes more anemic may need to discontinue or change to heparin ggt. Per family she has been getting chemotherapy Diabetes HgbA1C: 8.6 Lantus 10u SC QPM (increased from 7u 01/29) Novolin SC ACHS Hypertension PMD recently took her off her home BP meds which included valsartan, norvasc and cardizem History of Lung Cancer S/p left lower lobe lung lobectomy Thyroid Disorder Patient reports having history of thyroid disease, but does not know which type and does not take medications. TSH 0.23 (L), T4 WNL History of UTI Urine Culture 01/25 shows no growth UA 01/25 shows 3+ glucose, 1+ ketones, and 2 urine urobilinogen Anxiety Patient anxious and agitated at bedside 01/29 Per son-in-law, patient takes ativan 1mg at home for anxiety and ambien for sleep; also was on cymbalta Zolpidem 5mg PO HS PRN Ativan 0.5mg PO ONCE 01/29 Prophylactic measure Eliquis 5mg PO BID Pepcid 20mg PO BID Consistent carb/heart health 2Na diet Physical therapy on board for eval and treat <Raven Douglass - Last Filed: 02/02/17 17:38> Objective - Vital Signs/Intake and Output Vital Signs (last 24 hours): Temp Pulse Resp BP Pulse Ox 98.3 F 80 20 148/76 97 02/02/17 08:36 02/02/17 08:36 02/02/17 08:36 02/02/17 08:36 02/02/17 08:36 - Medications Medications: Current Medications Acetaminophen (Tylenol 325mg Tab) 650 mg PO Q6 PRN PRN Reason: Pain, Mild (1-3) Last Admin: 01/31/17 18:43 Dose: 650 mg Acetylcysteine (Acetylcysteine 20%) 4 ml INH RQ6 M[facility]ELINA Last Admin: 02/02/17 14:09 Dose: Not Given Albuterol/Ipratropium (Duoneb 3 Mg/0.5 Mg (3 Ml) Ud) 3 ml INH RQ6 MARCELINA Last Admin: 02/02/17 14:09 Dose: Not Given Apixaban (Eliquis) 5 mg PO BID [facility] Last Admin: 02/02/17 10:59 Dose: 5 mg Famotidine (Pepcid) 20 mg PO BID [facility] Last Admin: 02/02/17 09:13 Dose: 20 mg Imipenem/Cilastatin Sodium 500 (mg/ Sodium Chloride) 100 mls @ 250 mls/hr IVPB Q6H [facility] Last Admin: 02/02/17 14:41 Dose: 250 mls/hr Insulin Glargine (Lantus) 12 unit SC HS MARCELINA Last Admin: 02/01/17 21:31 Dose: 12 units Insulin Human Regular (Novolin R) 0 unit SC ACHS MARCELINA PRN Reason: Protocol Last Admin: 02/02/17 12:43 Dose: 4 unit Levetiracetam (Keppra) 500 mg PO BID [facility] Last Admin: 02/02/17 09:13 Dose: 500 mg Lorazepam (Ativan) 0.5 mg PO TID PRN PRN Reason: Anxiety Last Admin: 02/02/17 09:14 Dose: 0.5 mg Ondansetron HCl (Zofran Inj) 4 mg IVP Q4H PRN PRN Reason: Nausea/Vomiting Last Admin: 02/02/17 00:16 Dose: 4 mg Prednisone (Prednisone Tab) 10 mg PO DAILY [facility] Stop: 02/04/17 23:59 Prednisone (Prednisone Tab) 20 mg PO DAILY [facility] Stop: 02/03/17 23:59 Zolpidem Tartrate (Ambien) 5 mg PO HS PRN PRN Reason: Insomnia Last Admin: 02/01/17 21:22 Dose: 5 mg - Labs Labs: 02/02/17 07:09 02/02/17 07:09 Attending/Attestation - Attestation I have personally seen and examined this patient.: Yes I have fully participated in the care of the patient.: Yes I have reviewed all pertinent clinical information, including history, physical exam and plan: Yes Notes (Text): Patient was seen and examined,Feeling better, d/w the resident I agree with the documentation of the assessment and the plan of the resident.
[2017-02-01 08:00] LABS: BASO % 0.3 % (0.0-2.0); EOS % 0.1 % (0.0-4.0); HEMATOCRIT 32.2 % (34.0-47.0); LYMPH # 0.7 K/uL (1.0-4.3); LYMPH % 9.3 % (20.0-40.0); MEAN CELL VOLUME 88.7 fL (81.0-99.0); MEAN CORPUSCULAR HEMOGLOBIN 29.9 pg (27.0-31.0); MEAN CORPUSCULAR HGB CONC 33.7 g/dL (33.0-37.0); MEAN PLATELET VOLUME 8.7 fL (7.2-11.7); MONO # 0.8 K/uL (0.0-0.8); MONO % 10.3 % (0.0-10.0); NRBC % 0.7 % (0.0-2.0); PLATELET COUNT 377 K/uL (130-400); WHITE BLOOD COUNT 7.6 K/uL (4.8-10.8)
[2017-02-01 08:17] LABS: ALB/GLOB RATIO 0.9 (1.0-2.1); ALKALINE PHOSPHATASE 60 U/L (38-126); ALT/SGPT 25 U/L (9-52); AST/SGOT 24 U/L (14-36); BILIRUBIN,TOTAL 0.8 mg/dL (0.2-1.3); BLOOD UREA NITROGEN 7 mg/dL (7-17); CALCIUM 7.9 mg/dl (8.6-10.4); CARBON DIOXIDE 34 mmol/L (22-30); CHLORIDE 93 mmol/L (98-107); GFR AFRICAN-AMERICAN > 60; GLUCOSE,RANDOM 312 mg/dL (65-105); POTASSIUM 3.8 mmol/L (3.6-5.2); SODIUM 131 mmol/L (132-148); TOTAL PROTEIN 6.1 g/dL (6.3-8.3)
[2017-02-01 09:13] LABS: NEUTROPHIL 79 % (50-75); TOTAL CELLS COUNTED 100
[2017-02-01] MEDS: (Novolin R) Insulin Human Regular 100 units/ml vial SC SCH ×4 (09:45→21:31)
[2017-02-01] MEDS: Oxycodone/Acetaminophen 5/325 mg Tab PO PRN (10:17)
--- NOTE | 2017-02-01 17:46 | CP.PCM.PN ---
Subjective - Date & Time of Evaluation Date of Evaluation: 01/31/17 Time of Evaluation: 15:00 - Subjective Subjective: No complaints. Objective - Vital Signs/Intake and Output Vital Signs (last 24 hours): Temp Pulse Resp BP Pulse Ox 98.4 F 81 18 103/68 96 02/01/17 15:22 02/01/17 15:22 02/01/17 15:22 02/01/17 15:22 02/01/17 15:22 Intake and Output: 02/01/17 02/01/17 06:59 18:59 Intake Total 300 Balance 300 - Medications Medications: Current Medications Acetaminophen (Tylenol 325mg Tab) 650 mg PO Q6 PRN PRN Reason: Pain, Mild (1-3) Last Admin: 01/31/17 18:43 Dose: 650 mg Acetylcysteine (Acetylcysteine 20%) 4 ml INH RQ6 [facility]ELINA Last Admin: 02/01/17 13:29 Dose: 4 ml Albuterol/Ipratropium (Duoneb 3 Mg/0.5 Mg (3 Ml) Ud) 3 ml INH RQ6 MARCELINA Last Admin: 02/01/17 13:29 Dose: 3 ml Apixaban (Eliquis) 5 mg PO BID [facility]ARECLINA Last Admin: 02/01/17 10:25 Dose: 5 mg Famotidine (Pepcid) 20 mg PO BID M[facility]ELINA Last Admin: 02/01/17 10:26 Dose: 20 mg Imipenem/Cilastatin Sodium 500 (mg/ Sodium Chloride) 100 mls @ 250 mls/hr IVPB Q6H [facility]ARCELINA Last Admin: 02/01/17 14:19 Dose: 250 mls/hr Insulin Glargine (Lantus) 12 unit SC HS MARCELINA Last Admin: 01/31/17 21:40 Dose: 12 units Insulin Human Regular (Novolin R) 0 unit SC ACHS MARCELINA PRN Reason: Protocol Last Admin: 02/01/17 13:03 Dose: 6 unit Levetiracetam (Keppra) 500 mg PO BID [facility]ARCELINA Last Admin: 02/01/17 10:26 Dose: 500 mg Lorazepam (Ativan) 0.5 mg PO TID PRN PRN Reason: Anxiety Last Admin: 02/01/17 10:18 Dose: 0.5 mg Ondansetron HCl (Zofran Inj) 4 mg IVP Q4H PRN PRN Reason: Nausea/Vomiting Last Admin: 01/31/17 04:02 Dose: 4 mg Oxycodone/Acetaminophen (Percocet 5/325 Mg Tab) 1 tab PO Q6H PRN PRN Reason: Pain, severe (8-10) Stop: 02/02/17 12:48 Last Admin: 02/01/17 10:17 Dose: 1 tab Prednisone (Prednisone Tab) 30 mg PO DAILY [facility]ELINA Zolpidem Tartrate (Ambien) 5 mg PO HS PRN PRN Reason: Insomnia Last Admin: 01/29/17 22:23 Dose: 5 mg - Labs Labs: 02/01/17 07:47 02/01/17 07:47 - Head Exam Head Exam: ATRAUMATIC - Eye Exam Eye Exam: Normal appearance - ENT Exam ENT Exam: Mucous Membranes Dry - Respiratory Exam Respiratory Exam: NORMAL BREATHING PATTERN - Cardiovascular Exam Cardiovascular Exam: +S1, +S2 - GI/Abdominal Exam GI & Abdominal Exam: Normal Bowel Sounds Assessment and Plan (1) Breast cancer Assessment & Plan: brain, lung, liver, ?bone mets s/p brain radiotherapy on outpatient chemotherapy at [facility] discussed with pts family the importance of completing her full antibiotic course before resuming her chemotherapy with her primary oncologist Status: Acute (2) Anemia Assessment & Plan: chronic disease and chemotherapy Status: Acute
--- NOTE | 2017-02-01 17:47 | CP.PCM.PN ---
Subjective - Date & Time of Evaluation Date of Evaluation: 02/01/17 Time of Evaluation: 16:00 - Subjective Subjective: Feeling better Objective - Vital Signs/Intake and Output Vital Signs (last 24 hours): Temp Pulse Resp BP Pulse Ox 98.4 F 81 18 103/68 96 02/01/17 15:22 02/01/17 15:22 02/01/17 15:22 02/01/17 15:22 02/01/17 15:22 Intake and Output: 02/01/17 02/01/17 06:59 18:59 Intake Total 300 Balance 300 - Medications Medications: Current Medications Acetaminophen (Tylenol 325mg Tab) 650 mg PO Q6 PRN PRN Reason: Pain, Mild (1-3) Last Admin: 01/31/17 18:43 Dose: 650 mg Acetylcysteine (Acetylcysteine 20%) 4 ml INH RQ6 MARCELINA Last Admin: 02/01/17 13:29 Dose: 4 ml Albuterol/Ipratropium (Duoneb 3 Mg/0.5 Mg (3 Ml) Ud) 3 ml INH RQ6 MARCELINA Last Admin: 02/01/17 13:29 Dose: 3 ml Apixaban (Eliquis) 5 mg PO BID [facility]ELINA Last Admin: 02/01/17 10:25 Dose: 5 mg Famotidine (Pepcid) 20 mg PO BID [facility] Last Admin: 02/01/17 10:26 Dose: 20 mg Imipenem/Cilastatin Sodium 500 (mg/ Sodium Chloride) 100 mls @ 250 mls/hr IVPB Q6H MARCELINA Last Admin: 02/01/17 14:19 Dose: 250 mls/hr Insulin Glargine (Lantus) 12 unit SC HS MARCELINA Last Admin: 01/31/17 21:40 Dose: 12 units Insulin Human Regular (Novolin R) 0 unit SC ACHS MARCELINA PRN Reason: Protocol Last Admin: 02/01/17 13:03 Dose: 6 unit Levetiracetam (Keppra) 500 mg PO BID [facility] Last Admin: 02/01/17 10:26 Dose: 500 mg Lorazepam (Ativan) 0.5 mg PO TID PRN PRN Reason: Anxiety Last Admin: 02/01/17 10:18 Dose: 0.5 mg Ondansetron HCl (Zofran Inj) 4 mg IVP Q4H PRN PRN Reason: Nausea/Vomiting Last Admin: 01/31/17 04:02 Dose: 4 mg Oxycodone/Acetaminophen (Percocet 5/325 Mg Tab) 1 tab PO Q6H PRN PRN Reason: Pain, severe (8-10) Stop: 02/02/17 12:48 Last Admin: 02/01/17 10:17 Dose: 1 tab Prednisone (Prednisone Tab) 30 mg PO DAILY MARCELINA Zolpidem Tartrate (Ambien) 5 mg PO HS PRN PRN Reason: Insomnia Last Admin: 01/29/17 22:23 Dose: 5 mg - Labs Labs: 02/01/17 07:47 02/01/17 07:47 - Head Exam Head Exam: ATRAUMATIC - Eye Exam Eye Exam: Normal appearance - ENT Exam ENT Exam: Mucous Membranes Dry - Respiratory Exam Respiratory Exam: NORMAL BREATHING PATTERN - Cardiovascular Exam Cardiovascular Exam: +S1, +S2 - GI/Abdominal Exam GI & Abdominal Exam: Normal Bowel Sounds Assessment and Plan (1) Breast cancer Assessment & Plan: brain, lung, liver, ?bone mets s/p brain radiotherapy on outpatient chemotherapy at [facility] discussed with pts family the importance of completing her full antibiotic course before resuming her chemotherapy with her primary oncologist Status: Acute (2) Anemia Assessment & Plan: anemia of chemotherapy and chronic disease Status: Acute
--- NOTE | 2017-02-01 19:00 | CP.PCM.PN ---
Subjective - Date & Time of Evaluation Date of Evaluation: 02/01/17 Time of Evaluation: 18:52 - Subjective Subjective: Pulmonary coverage for Dr. John Patient seen and examined No events overnight Objective - Vital Signs/Intake and Output Vital Signs (last 24 hours): Temp Pulse Resp BP Pulse Ox 98.4 F 81 18 103/68 96 02/01/17 15:22 02/01/17 15:22 02/01/17 15:22 02/01/17 15:22 02/01/17 15:22 Intake and Output: 02/01/17 02/01/17 06:59 18:59 Intake Total 300 Balance 300 - Medications Medications: Current Medications Acetaminophen (Tylenol 325mg Tab) 650 mg PO Q6 PRN PRN Reason: Pain, Mild (1-3) Last Admin: 01/31/17 18:43 Dose: 650 mg Acetylcysteine (Acetylcysteine 20%) 4 ml INH RQ6 MARCELINA Last Admin: 02/01/17 13:29 Dose: 4 ml Albuterol/Ipratropium (Duoneb 3 Mg/0.5 Mg (3 Ml) Ud) 3 ml INH RQ6 MARCELINA Last Admin: 02/01/17 13:29 Dose: 3 ml Apixaban (Eliquis) 5 mg PO BID MARCELINA Last Admin: 02/01/17 18:12 Dose: 5 mg Famotidine (Pepcid) 20 mg PO BID MARCELINA Last Admin: 02/01/17 18:12 Dose: 20 mg Imipenem/Cilastatin Sodium 500 (mg/ Sodium Chloride) 100 mls @ 250 mls/hr IVPB Q6H MARCELINA Last Admin: 02/01/17 14:19 Dose: 250 mls/hr Insulin Glargine (Lantus) 12 unit SC HS MARCELINA Last Admin: 01/31/17 21:40 Dose: 12 units Insulin Human Regular (Novolin R) 0 unit SC ACHS MARCELINA PRN Reason: Protocol Last Admin: 02/01/17 18:12 Dose: 6 unit Levetiracetam (Keppra) 500 mg PO BID MARCELINA Last Admin: 02/01/17 18:12 Dose: 500 mg Lorazepam (Ativan) 0.5 mg PO TID PRN PRN Reason: Anxiety Last Admin: 02/01/17 10:18 Dose: 0.5 mg Ondansetron HCl (Zofran Inj) 4 mg IVP Q4H PRN PRN Reason: Nausea/Vomiting Last Admin: 01/31/17 04:02 Dose: 4 mg Oxycodone/Acetaminophen (Percocet 5/325 Mg Tab) 1 tab PO Q6H PRN PRN Reason: Pain, severe (8-10) Stop: 02/02/17 12:48 Last Admin: 02/01/17 10:17 Dose: 1 tab Prednisone (Prednisone Tab) 30 mg PO DAILY MARCELINA Zolpidem Tartrate (Ambien) 5 mg PO HS PRN PRN Reason: Insomnia Last Admin: 01/29/17 22:23 Dose: 5 mg - Labs Labs: 02/01/17 07:47 02/01/17 07:47 - Head Exam Head Exam: NORMAL INSPECTION - Eye Exam Eye Exam: Normal appearance - ENT Exam ENT Exam: Mucous Membranes Moist - Respiratory Exam Respiratory Exam: Decreased Breath Sounds, Rhonchi - Cardiovascular Exam Cardiovascular Exam: REGULAR RHYTHM, +S1, +S2 - GI/Abdominal Exam GI & Abdominal Exam: Soft, Normal Bowel Sounds Assessment and Plan (1) Pneumonia Status: Acute (2) Shortness of breath Status: Acute - Assessment and Plan (Free Text) Plan: Lasix Bronchodilators Advair 500/50 mcg one puff Twice Twice daily Oxygen supplementation, especially at night DVT/GI prophalaxis
[2017-02-01] MEDS: (Lantus) Insulin Glargine, Recombinant SC SCH (21:31)
[2017-02-02] MEDS: Oxycodone/Acetaminophen 5/325 mg Tab PO PRN (00:16)
[2017-02-02] MEDS: Acetylcysteine 20% Inhal Soln (4ml) INH SCH ×4 (01:12→20:14)
[2017-02-02] MEDS: Albuterol-Ipratrop 3 mg / 0.5 (3 ml) UD INH SCH ×4 (01:12→20:14)
[2017-02-02 01:26] VITALS: RESP 20
[2017-02-02 07:24] LABS: BASO % 0.1 % (0.0-2.0); EOS # 0.1 K/uL (0.0-0.7); EOS % 0.7 % (0.0-4.0); HEMATOCRIT 32.4 % (34.0-47.0); LYMPH # 1.4 K/uL (1.0-4.3); LYMPH % 15.3 % (20.0-40.0); MEAN CELL VOLUME 87.9 fL (81.0-99.0); MEAN CORPUSCULAR HEMOGLOBIN 30.1 pg (27.0-31.0); MEAN CORPUSCULAR HGB CONC 34.2 g/dL (33.0-37.0); MEAN PLATELET VOLUME 8.5 fL (7.2-11.7); MONO % 10.9 % (0.0-10.0); NRBC % 0.5 % (0.0-2.0); RED CELL DISTRIBUTION WIDTH 17.9 % (11.5-14.5)
[2017-02-02] MEDS: (Novolin R) Insulin Human Regular 100 units/ml vial SC SCH ×4 (07:25→21:40)
[2017-02-02 08:34] LABS: ALB/GLOB RATIO 1.3 (1.0-2.1); ALKALINE PHOSPHATASE 55 U/L (38-126); ALT/SGPT 19 U/L (9-52); AST/SGOT 26 U/L (14-36); BILIRUBIN,TOTAL 0.8 mg/dL (0.2-1.3); BLOOD UREA NITROGEN 6 mg/dL (7-17); CALCIUM 7.9 mg/dl (8.6-10.4); CARBON DIOXIDE 37 mmol/L (22-30); CHLORIDE 99 mmol/L (98-107); GFR AFRICAN-AMERICAN > 60; GLUCOSE,RANDOM 100 mg/dL (65-105); POTASSIUM 3.2 mmol/L (3.6-5.2); SODIUM 137 mmol/L (132-148); TOTAL PROTEIN 4.9 g/dL (6.3-8.3)
[2017-02-02] MEDS ORDERED: Potassium Chloride 20 mEq ER Tab PO ONE (10:00)
--- NOTE | 2017-02-02 12:39 | CP.PCM.PN ---
Subjective - Date & Time of Evaluation Date of Evaluation: 02/02/17 Time of Evaluation: 11:50 - Subjective Subjective: No complaints, in bed. Objective - Vital Signs/Intake and Output Vital Signs (last 24 hours): Temp Pulse Resp BP Pulse Ox 98.3 F 80 20 148/76 97 02/02/17 08:36 02/02/17 08:36 02/02/17 08:36 02/02/17 08:36 02/02/17 08:36 - Medications Medications: Current Medications Acetaminophen (Tylenol 325mg Tab) 650 mg PO Q6 PRN PRN Reason: Pain, Mild (1-3) Last Admin: 01/31/17 18:43 Dose: 650 mg Acetylcysteine (Acetylcysteine 20%) 4 ml INH RQ6 [facility] Last Admin: 02/02/17 07:51 Dose: 4 ml Albuterol/Ipratropium (Duoneb 3 Mg/0.5 Mg (3 Ml) Ud) 3 ml INH RQ6 MARCELINA Last Admin: 02/02/17 07:51 Dose: 3 ml Apixaban (Eliquis) 5 mg PO BID [facility] Last Admin: 02/02/17 10:59 Dose: 5 mg Famotidine (Pepcid) 20 mg PO BID [facility] Last Admin: 02/02/17 09:13 Dose: 20 mg Imipenem/Cilastatin Sodium 500 (mg/ Sodium Chloride) 100 mls @ 250 mls/hr IVPB Q6H [facility] Last Admin: 02/02/17 09:13 Dose: 250 mls/hr Insulin Glargine (Lantus) 12 unit SC HS [facility] Last Admin: 02/01/17 21:31 Dose: 12 units Insulin Human Regular (Novolin R) 0 unit SC ACHS MARCELINA PRN Reason: Protocol Last Admin: 02/02/17 07:25 Dose: Not Given Levetiracetam (Keppra) 500 mg PO BID [facility] Last Admin: 02/02/17 09:13 Dose: 500 mg Lorazepam (Ativan) 0.5 mg PO TID PRN PRN Reason: Anxiety Last Admin: 02/02/17 09:14 Dose: 0.5 mg Ondansetron HCl (Zofran Inj) 4 mg IVP Q4H PRN PRN Reason: Nausea/Vomiting Last Admin: 02/02/17 00:16 Dose: 4 mg Oxycodone/Acetaminophen (Percocet 5/325 Mg Tab) 1 tab PO Q6H PRN PRN Reason: Pain, severe (8-10) Stop: 02/02/17 12:48 Last Admin: 02/02/17 00:16 Dose: 1 tab Prednisone (Prednisone Tab) 30 mg PO DAILY MARCELINA Last Admin: 02/02/17 09:13 Dose: 30 mg Zolpidem Tartrate (Ambien) 5 mg PO HS PRN PRN Reason: Insomnia Last Admin: 02/01/17 21:22 Dose: 5 mg - Labs Labs: 02/02/17 07:09 02/02/17 07:09 - Head Exam Head Exam: ATRAUMATIC - Eye Exam Eye Exam: Normal appearance - ENT Exam ENT Exam: Mucous Membranes Dry - Respiratory Exam Respiratory Exam: NORMAL BREATHING PATTERN - Cardiovascular Exam Cardiovascular Exam: +S1, +S2 - GI/Abdominal Exam GI & Abdominal Exam: Normal Bowel Sounds Assessment and Plan (1) Breast cancer Assessment & Plan: brain, lung, liver, ?bone mets s/p brain radiotherapy on outpatient chemotherapy at [facility] discussed with pts family the importance of completing her full antibiotic course before resuming her chemotherapy with her primary oncologist Status: Acute (2) Anemia Assessment & Plan: anemia of chemotherapy and chronic disease Status: Acute
--- NOTE | 2017-02-02 15:21 | CP.PCM.PN ---
Subjective - Date & Time of Evaluation Date of Evaluation: 02/02/17 Time of Evaluation: 15:21 Objective - Vital Signs/Intake and Output Vital Signs (last 24 hours): Temp Pulse Resp BP Pulse Ox 98.3 F 80 20 148/76 97 02/02/17 08:36 02/02/17 08:36 02/02/17 08:36 02/02/17 08:36 02/02/17 08:36 - Medications Medications: Current Medications Acetaminophen (Tylenol 325mg Tab) 650 mg PO Q6 PRN PRN Reason: Pain, Mild (1-3) Last Admin: 01/31/17 18:43 Dose: 650 mg Acetylcysteine (Acetylcysteine 20%) 4 ml INH RQ6 MARCELINA Last Admin: 02/02/17 14:09 Dose: Not Given Albuterol/Ipratropium (Duoneb 3 Mg/0.5 Mg (3 Ml) Ud) 3 ml INH RQ6 MARCELINA Last Admin: 02/02/17 14:09 Dose: Not Given Apixaban (Eliquis) 5 mg PO BID [facility] Last Admin: 02/02/17 10:59 Dose: 5 mg Famotidine (Pepcid) 20 mg PO BID [facility] Last Admin: 02/02/17 09:13 Dose: 20 mg Imipenem/Cilastatin Sodium 500 (mg/ Sodium Chloride) 100 mls @ 250 mls/hr IVPB Q6H [facility] Last Admin: 02/02/17 14:41 Dose: 250 mls/hr Insulin Glargine (Lantus) 12 unit SC HS [facility] Last Admin: 02/01/17 21:31 Dose: 12 units Insulin Human Regular (Novolin R) 0 unit SC ACHS MARCELINA PRN Reason: Protocol Last Admin: 02/02/17 12:43 Dose: 4 unit Levetiracetam (Keppra) 500 mg PO BID [facility] Last Admin: 02/02/17 09:13 Dose: 500 mg Lorazepam (Ativan) 0.5 mg PO TID PRN PRN Reason: Anxiety Last Admin: 02/02/17 09:14 Dose: 0.5 mg Ondansetron HCl (Zofran Inj) 4 mg IVP Q4H PRN PRN Reason: Nausea/Vomiting Last Admin: 02/02/17 00:16 Dose: 4 mg Prednisone (Prednisone Tab) 30 mg PO DAILY [facility] Last Admin: 02/02/17 09:13 Dose: 30 mg Zolpidem Tartrate (Ambien) 5 mg PO HS PRN PRN Reason: Insomnia Last Admin: 02/01/17 21:22 Dose: 5 mg - Labs Labs: 02/02/17 07:09 02/02/17 07:09 Assessment and Plan (1) Pneumonia Status: Acute (2) Shortness of breath Status: Acute
--- NOTE | 2017-02-02 16:33 | CP.PCM.PN ---
<Toney Sheikh R - Last Filed: 02/02/17 16:25> Subjective - Date & Time of Evaluation Date of Evaluation: 02/02/17 Time of Evaluation: 16:25 - Subjective Subjective: PGY-[address] Douglass. No acute events overnight noted. Patient complained of mild abdominal pain after ingesting pill medications. Patient denies chest pain, shortness of breath , nausea, vomiting, fever, chills, diarrhea. Objective - Vital Signs/Intake and Output Vital Signs (last 24 hours): Temp Pulse Resp BP Pulse Ox 98.3 F 80 20 148/76 97 02/02/17 08:36 02/02/17 08:36 02/02/17 08:36 02/02/17 08:36 02/02/17 08:36 - Medications Medications: Current Medications Acetaminophen (Tylenol 325mg Tab) 650 mg PO Q6 PRN PRN Reason: Pain, Mild (1-3) Last Admin: 01/31/17 18:43 Dose: 650 mg Acetylcysteine (Acetylcysteine 20%) 4 ml INH RQ6 [facility] Last Admin: 02/02/17 14:09 Dose: Not Given Albuterol/Ipratropium (Duoneb 3 Mg/0.5 Mg (3 Ml) Ud) 3 ml INH RQ6 [facility] Last Admin: 02/02/17 14:09 Dose: Not Given Apixaban (Eliquis) 5 mg PO BID [facility] Last Admin: 02/02/17 10:59 Dose: 5 mg Famotidine (Pepcid) 20 mg PO BID [facility] Last Admin: 02/02/17 09:13 Dose: 20 mg Imipenem/Cilastatin Sodium 500 (mg/ Sodium Chloride) 100 mls @ 250 mls/hr IVPB Q6H [facility] Last Admin: 02/02/17 14:41 Dose: 250 mls/hr Insulin Glargine (Lantus) 12 unit SC HS [facility] Last Admin: 02/01/17 21:31 Dose: 12 units Insulin Human Regular (Novolin R) 0 unit SC ACHS MARCELINA PRN Reason: Protocol Last Admin: 02/02/17 12:43 Dose: 4 unit Levetiracetam (Keppra) 500 mg PO BID [facility] Last Admin: 02/02/17 09:13 Dose: 500 mg Lorazepam (Ativan) 0.5 mg PO TID PRN PRN Reason: Anxiety Last Admin: 02/02/17 09:14 Dose: 0.5 mg Ondansetron HCl (Zofran Inj) 4 mg IVP Q4H PRN PRN Reason: Nausea/Vomiting Last Admin: 02/02/17 00:16 Dose: 4 mg Prednisone (Prednisone Tab) 30 mg PO DAILY [facility]ELINA Last Admin: 02/02/17 09:13 Dose: 30 mg Zolpidem Tartrate (Ambien) 5 mg PO HS PRN PRN Reason: Insomnia Last Admin: 02/01/17 21:22 Dose: 5 mg - Labs Labs: 02/02/17 07:09 02/02/17 07:09 - Additional Findings Additional findings: - Constitutional Appears: No Acute Distress, Older Than Stated Age, Cachectic, Chronically Ill - Head Exam Additional comments: Recent chemo, hair loss - Eye Exam Eye Exam: EOMI, Normal appearance - ENT Exam ENT Exam: Mucous Membranes Moist - Respiratory Exam Respiratory Exam: Decreased Breath Sounds, Rales, Rhonchi Additional comments: Bilaterall rales and rhonchi, R > L, much improved since admission - Cardiovascular Exam Cardiovascular Exam: REGULAR RHYTHM - GI/Abdominal Exam GI & Abdominal Exam: Soft, Normal Bowel Sounds. absent: Firm, Guarding, Rigid, Tenderness - Neurological Exam Neurological Exam: Alert, Awake Neuro motor strength exam: Left Upper Extremity: 4, Right Upper Extremity: 4 Additional comments: She is almost AAO 3, waxing and waning. - Psychiatric Exam Psychiatric exam: Normal Affect, Normal Mood Assessment and Plan - Assessment and Plan (Free Text) Assessment: Pneumonia likely 2/2 to immunocomprimised state/post-obstructive pneumonia Pulmonary consult, Dr John Infectious Disease consult, Dr Cook Sepsis on admission Procalcitonin 10.46 (H), Bandemia resolved Blood culture 01/25 shows no growth up to date Imaging: Repeat Chest XRAY 01/29: No significant interval change compared to the prior examination(s). Persistent large right upper lobe infiltrate Repeat Chest XRAY 01/28: Worsening left basilar airspace opacity with pleural effusion. Persistent consolidative changes to the right upper to mid lung zone. Chest CT Angio 01/26: No pulmonary embolism. Consolidation in the posterior aspect of the right upper lobe which may represent an infiltrate/pneumonia. Underlying mass is not evident at this time although this is not entirely excluded particularly given the known probable metastatic liver findings. Short -term follow-up imaging post therapy is recommended. Small right pleural effusion with adjacent atelectasis. Debris and thickening of the right mainstem bronchus, the upper lobe bronchus, and the bronchus intermedius. Numerous hepatic hypodense masses most consistent with metastatic disease. Chest XRAY 01/25: Interval right upper lobe collapse - endobronchial and or surrounding extrinsic compressive causative lesion suspect. Chest CT w/o contrast 01/25: Evidence of partial left lower lobectomy. Extensive opacification of the right upper lobe possibly represents soft tissue mass/malignant neoplasm, pneumonia, and/or postobstructive atelectasis. Correlate clinically. This finding is inseparable from the upper mediastinum and right hilum. The right upper lobe bronchus appears narrowed, possibly occluded. Suspect mucous or neoplasm within the distal right lower lobe bronchus. Small right pleural effusion which dependent consolidation. Numerous hypodense hepatic masses worrisome for metastases. Bilateral mastectomy. Mixed chondroid matrix lesion, right humerus. This may represent enchondroma or chondrosarcoma in the proper clinical setting. Partially imaged L2 compression fracture deformity. Meds: Discontinued Vancomycin 1g IVPB Q12H, started 01/25, STOPPED 01/31 Imipenem/Cilastin 500mg IVPB Q6H, started 01/25 (Discontinued Cefepime), con't IV abx for 10 days (per Dr Cook) Duoneb INH RQ6 Prednisone PO QD (on a steroid taper) Acethylcysteine 4ml INH RQ6 Tylenol 650mg PO Q6 PRN Percocet 1 tab PO Q6 PRN for severe pain Pulmonary Embolism found three weeks ago Patient's son in law and daughter (who both work at [employer]) report that recently at [facility] she had a DVT and then a PE; mechanical thrombectomy of PE considered however not done due to low LVEF Cardiology consult, Dr Manuel Chest CT Angio 01/26 showed no pulmonary embolism Troponin I negative x2; Pro-BNP wnl Restarted on Eliquis 5mg PO BID 01/27 Echo 01/29: Normal LVSF. LVH with diastolic dysfunction. Dilated LA. Mild MR. Mild TR. Duplex scan lower extremities 01/27: negative Diastolic CHF Cardiology consult, Dr Manuel Troponin I negative x2; Pro-BNP wnl Echo 01/29: Normal LVSF. LVH with diastolic dysfunction. Dilated LA. Mild MR. Mild TR. 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 Castaneda - hematology/ oncologist [phone] Penaloza discussed with pts family the importance of completing her full antibiotic course before resuming her chemotherapy with her primary oncologist F/U CT abd/pelvis with PO and IV contrast F/U Bone Scan Whole Body Anemia Likely 2/2 chronic disease and chemotherapy effect transfusion support if hgb < 7 Hg 10.4 on admission Status post 1 unit of PRBC 01/27 She has been on Eliquis for DVT and PE. I explained to the family that will continue with Eliquis for now. However if becomes more anemic may need to discontinue or change to heparin ggt. Per family she has been getting chemotherapy Diabetes HgbA1C: 8.6 Lantus 10u SC QPM (increased from 7u 01/29) Novolin SC ACHS Hypertension PMD recently took her off her home BP meds which included valsartan, norvasc and cardizem History of Lung Cancer S/p left lower lobe lung lobectomy Thyroid Disorder Patient reports having history of thyroid disease, but does not know which type and does not take medications. TSH 0.23 (L), T4 WNL History of UTI Urine Culture 01/25 shows no growth UA 01/25 shows 3+ glucose, 1+ ketones, and 2 urine urobilinogen Anxiety Patient anxious and agitated at bedside 01/29 Per son-in-law, patient takes ativan 1mg at home for anxiety and ambien for sleep; also was on cymbalta Zolpidem 5mg PO HS PRN Ativan 0.5mg PO ONCE 01/29 Prophylactic measure Eliquis 5mg PO BID Pepcid 20mg PO BID Consistent carb/heart health 2Na diet Physical therapy on board for eval and treat <Raven Douglass - Last Filed: 02/02/17 17:42> Objective - Vital Signs/Intake and Output Vital Signs (last 24 hours): Temp Pulse Resp BP Pulse Ox 98.3 F 80 20 148/76 97 02/02/17 08:36 02/02/17 08:36 02/02/17 08:36 02/02/17 08:36 02/02/17 08:36 - Medications Medications: Current Medications Acetaminophen (Tylenol 325mg Tab) 650 mg PO Q6 PRN PRN Reason: Pain, Mild (1-3) Last Admin: 01/31/17 18:43 Dose: 650 mg Acetylcysteine (Acetylcysteine 20%) 4 ml INH RQ6 [facility] Last Admin: 02/02/17 14:09 Dose: Not Given Albuterol/Ipratropium (Duoneb 3 Mg/0.5 Mg (3 Ml) Ud) 3 ml INH RQ6 [facility] Last Admin: 02/02/17 14:09 Dose: Not Given Apixaban (Eliquis) 5 mg PO BID [facility] Last Admin: 02/02/17 10:59 Dose: 5 mg Famotidine (Pepcid) 20 mg PO BID [facility] Last Admin: 02/02/17 09:13 Dose: 20 mg Imipenem/Cilastatin Sodium 500 (mg/ Sodium Chloride) 100 mls @ 250 mls/hr IVPB Q6H [facility] Last Admin: 02/02/17 14:41 Dose: 250 mls/hr Insulin Glargine (Lantus) 12 unit SC HS [facility] Last Admin: 02/01/17 21:31 Dose: 12 units Insulin Human Regular (Novolin R) 0 unit SC ACHS MARCELINA PRN Reason: Protocol Last Admin: 02/02/17 12:43 Dose: 4 unit Levetiracetam (Keppra) 500 mg PO BID [facility] Last Admin: 02/02/17 09:13 Dose: 500 mg Lorazepam (Ativan) 0.5 mg PO TID PRN PRN Reason: Anxiety Last Admin: 02/02/17 09:14 Dose: 0.5 mg Ondansetron HCl (Zofran Inj) 4 mg IVP Q4H PRN PRN Reason: Nausea/Vomiting Last Admin: 02/02/17 00:16 Dose: 4 mg Prednisone (Prednisone Tab) 10 mg PO DAILY [facility] Stop: 02/04/17 23:59 Prednisone (Prednisone Tab) 20 mg PO DAILY [facility] Stop: 02/03/17 23:59 Zolpidem Tartrate (Ambien) 5 mg PO HS PRN PRN Reason: Insomnia Last Admin: 02/01/17 21:22 Dose: 5 mg - Labs Labs: 02/02/17 07:09 02/02/17 07:09 Attending/Attestation - Attestation I have personally seen and examined this patient.: Yes I have fully participated in the care of the patient.: Yes I have reviewed all pertinent clinical information, including history, physical exam and plan: Yes Notes (Text): Patient was seen and examined Discussed with patient's son in [facility] Discussed with DR penaloza and patient's oncologist Dr Castaneda Whole body scan CT abdomen and pelvis with oral and IV contrast and CT chest ordered. patient will follow Dr Castaneda as an out pt 02/02/17 17:40
--- NOTE | 2017-02-02 17:57 | NM ---
PROCEDURE: Whole Body Bone Scan HISTORY: Breast ca with mets Relevant medical history: Prior history of 5th rib fracture on the right COMPARISON: None available. TECHNIQUE: Following administration of 22.5 miCu of Tc MDP multiplanar whole body images were obtained. Radionuclide injected left Port-A-Cath FINDINGS: Evidence for bony metastatic disease: None. Degenerative uptake: Lower extremities primarily knees and feet Physiologic uptake: Normal physiologic activity in the kidneys. Other findings: Increased uptake in the chest wall on the left consistent with injection of radionuclide through the Port-A-Cath. IMPRESSION: No evidence of bony metastatic disease.Additional benign and/or incidental findings described above.
[2017-02-02] MEDS: (Lantus) Insulin Glargine, Recombinant SC SCH (21:41)
[2017-02-03] MEDS: Acetylcysteine 20% Inhal Soln (4ml) INH SCH ×3 (01:08→13:27)
[2017-02-03] MEDS: (Novolin R) Insulin Human Regular 100 units/ml vial SC SCH ×2 (07:26→11:45)
[2017-02-03 07:27] LABS: BASO # 0.1 K/uL (0.0-0.2); BASO % 0.5 % (0.0-2.0); EOS # 0.1 K/uL (0.0-0.7); EOS % 0.6 % (0.0-4.0); HEMATOCRIT 33.3 % (34.0-47.0); LYMPH # 1.3 K/uL (1.0-4.3); LYMPH % 13.1 % (20.0-40.0); MEAN CELL VOLUME 87.7 fL (81.0-99.0); MEAN CORPUSCULAR HEMOGLOBIN 29.8 pg (27.0-31.0); MEAN PLATELET VOLUME 8.6 fL (7.2-11.7); MONO # 0.9 K/uL (0.0-0.8); MONO % 8.5 % (0.0-10.0); NRBC % 0.2 % (0.0-2.0); RED CELL DISTRIBUTION WIDTH 17.8 % (11.5-14.5); WHITE BLOOD COUNT 10.1 K/uL (4.8-10.8)
[2017-02-03 08:13] LABS: ALB/GLOB RATIO 1.4 (1.0-2.1); ALKALINE PHOSPHATASE 63 U/L (38-126); ALT/SGPT 21 U/L (9-52); AST/SGOT 15 U/L (14-36); BILIRUBIN,TOTAL 0.9 mg/dL (0.2-1.3); BLOOD UREA NITROGEN 6 mg/dL (7-17); CALCIUM 7.8 mg/dl (8.6-10.4); CARBON DIOXIDE 35 mmol/L (22-30); CHLORIDE 97 mmol/L (98-107); GFR AFRICAN-AMERICAN > 60; GLUCOSE,RANDOM 105 mg/dL (65-105); POTASSIUM 3.1 mmol/L (3.6-5.2); SODIUM 135 mmol/L (132-148); TOTAL PROTEIN 4.8 g/dL (6.3-8.3)
[2017-02-03 08:21] VITALS: BP 122/73; TEMP 98.4; O2SAT 98
[2017-02-03] MEDS ORDERED: Potassium Chloride 20 mEq ER Tab PO STA ×2 (08:29)
[2017-02-03] MEDS: Albuterol-Ipratrop 3 mg / 0.5 (3 ml) UD INH SCH ×2 (08:43→13:26)
[2017-02-03] MEDS ORDERED: Iohexol 240 (50 ml) PO ONE (11:45)
--- NOTE | 2017-02-03 11:47 | CP.PCM.PN ---
Subjective - Date & Time of Evaluation Date of Evaluation: 02/03/17 Time of Evaluation: 11:45 - Subjective Subjective: Progress Note for Dr. Khan's Service Pt seen and examined at bedside. No acute events overnight as per nursing. She continues to be weak and lethargic during examination. She denies any acute symptoms including F/C/N/V/D/C/CP/SOB. She states she is fine. Objective - Vital Signs/Intake and Output Vital Signs (last 24 hours): Temp Pulse Resp BP Pulse Ox 98.4 F 62 20 122/73 98 02/03/17 08:20 02/03/17 08:20 02/03/17 08:20 02/03/17 08:20 02/03/17 08:20 - Medications Medications: Current Medications Acetaminophen (Tylenol 325mg Tab) 650 mg PO Q6 PRN PRN Reason: Pain, Mild (1-3) Last Admin: 01/31/17 18:43 Dose: 650 mg Acetylcysteine (Acetylcysteine 20%) 4 ml INH RQ6 [facility]ELINA Last Admin: 02/03/17 08:43 Dose: 4 ml Albuterol/Ipratropium (Duoneb 3 Mg/0.5 Mg (3 Ml) Ud) 3 ml INH RQ6 MARCELINA Last Admin: 02/03/17 08:43 Dose: 3 ml Apixaban (Eliquis) 5 mg PO BID [facility] Last Admin: 02/03/17 09:47 Dose: 5 mg Famotidine (Pepcid) 20 mg PO BID [facility] Last Admin: 02/03/17 09:47 Dose: 20 mg Imipenem/Cilastatin Sodium 500 (mg/ Sodium Chloride) 100 mls @ 250 mls/hr IVPB Q6H [facility] Last Admin: 02/03/17 08:33 Dose: 250 mls/hr Insulin Glargine (Lantus) 12 unit SC HS [facility] Last Admin: 02/02/17 21:41 Dose: 12 units Insulin Human Regular (Novolin R) 0 unit SC ACHS [facility] PRN Reason: Protocol Last Admin: 02/03/17 07:26 Dose: Not Given Iohexol (Omnipaque 240 (50 Ml)) 50 ml PO ONCE ONE Stop: 02/03/17 11:46 Levetiracetam (Keppra) 500 mg PO BID [facility]ELINA Last Admin: 02/03/17 09:47 Dose: 500 mg Lorazepam (Ativan) 0.5 mg PO TID PRN PRN Reason: Anxiety Last Admin: 02/02/17 19:07 Dose: 0.5 mg Ondansetron HCl (Zofran Inj) 4 mg IVP Q4H PRN PRN Reason: Nausea/Vomiting Last Admin: 02/03/17 09:59 Dose: 4 mg Prednisone (Prednisone Tab) 10 mg PO DAILY [facility]INA Stop: 02/04/17 23:59 Prednisone (Prednisone Tab) 20 mg PO DAILY [facility]ELINA Stop: 02/03/17 23:59 Last Admin: 02/03/17 09:47 Dose: 20 mg Zolpidem Tartrate (Ambien) 5 mg PO HS PRN PRN Reason: Insomnia Last Admin: 02/02/17 21:40 Dose: 5 mg - Labs Labs: 02/03/17 07:16 02/03/17 07:16 - Constitutional Appears: No Acute Distress - Head Exam Head Exam: ATRAUMATIC, NORMAL INSPECTION - Eye Exam Eye Exam: EOMI, Normal appearance - ENT Exam ENT Exam: Mucous Membranes Moist - Respiratory Exam Respiratory Exam: Decreased Breath Sounds, Rales - Cardiovascular Exam Cardiovascular Exam: REGULAR RHYTHM, +S1, +S2 - GI/Abdominal Exam GI & Abdominal Exam: Soft, Normal Bowel Sounds. absent: Tenderness - Extremities Exam Extremities Exam: absent: Calf Tenderness, Pedal Edema - Neurological Exam Neurological Exam: Alert, Awake, Oriented x3 - Skin Skin Exam: Dry, Warm Assessment and Plan - Assessment and Plan (Free Text) Plan: Pneumonia likely 2/2 to immunocomprimised state/post-obstructive pneumonia Pulmonary consult, Dr John Infectious Disease consult, Dr Cook Sepsis on admission Procalcitonin 10.46 (H), Bandemia resolved Blood culture 01/25 shows no growth up to date Imaging: Repeat Chest XRAY 01/29: No significant interval change compared to the prior examination(s). Persistent large right upper lobe infiltrate Repeat Chest XRAY 01/28: Worsening left basilar airspace opacity with pleural effusion. Persistent consolidative changes to the right upper to mid lung zone. Chest CT Angio 01/26: No pulmonary embolism. Consolidation in the posterior aspect of the right upper lobe which may represent an infiltrate/pneumonia. Underlying mass is not evident at this time although this is not entirely excluded particularly given the known probable metastatic liver findings. Short -term follow-up imaging post therapy is recommended. Small right pleural effusion with adjacent atelectasis. Debris and thickening of the right mainstem bronchus, the upper lobe bronchus, and the bronchus intermedius. Numerous hepatic hypodense masses most consistent with metastatic disease. Chest XRAY 01/25: Interval right upper lobe collapse - endobronchial and or surrounding extrinsic compressive causative lesion suspect. Chest CT w/o contrast 01/25: Evidence of partial left lower lobectomy. Extensive opacification of the right upper lobe possibly represents soft tissue mass/malignant neoplasm, pneumonia, and/or postobstructive atelectasis. Correlate clinically. This finding is inseparable from the upper mediastinum and right hilum. The right upper lobe bronchus appears narrowed, possibly occluded. Suspect mucous or neoplasm within the distal right lower lobe bronchus. Small right pleural effusion which dependent consolidation. Numerous hypodense hepatic masses worrisome for metastases. Bilateral mastectomy. Mixed chondroid matrix lesion, right humerus. This may represent enchondroma or chondrosarcoma in the proper clinical setting. Partially imaged L2 compression fracture deformity. Meds: Discontinued Vancomycin 1g IVPB Q12H, started 01/25, STOPPED 01/31 Imipenem/Cilastin 500mg IVPB Q6H, started 01/25 (Discontinued Cefepime), con't IV abx for 10 days (per Dr Cook) Duoneb INH RQ6 Prednisone PO QD (on a steroid taper) Acethylcysteine 4ml INH RQ6 Tylenol 650mg PO Q6 PRN Percocet 1 tab PO Q6 PRN for severe pain Pulmonary Embolism found three weeks ago Patient's son in law and daughter (who both work at [employer]) report that recently at [facility]] she had a DVT and then a PE; mechanical thrombectomy of PE considered however not done due to low LVEF Cardiology consult, Dr Manuel Chest CT Angio 01/26 showed no pulmonary embolism Troponin I negative x2; Pro-BNP wnl Restarted on Eliquis 5mg PO BID 01/27 Echo 01/29: Normal LVSF. LVH with diastolic dysfunction. Dilated LA. Mild MR. Mild TR. Duplex scan lower extremities 01/27: negative Diastolic CHF Cardiology consult, Dr Manuel Troponin I negative x2; Pro-BNP wnl Echo 01/29: Normal LVSF. LVH with diastolic dysfunction. Dilated LA. Mild MR. Mild TR. 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 Castaneda - hematology/ oncologist [phone] Penaloaz discussed with pts family the importance of completing her full antibiotic course before resuming her chemotherapy with her primary oncologist F/U CT abd/pelvis with PO and IV contrast Bone Scan 02/02 no mets to the bones identified Anemia Likely 2/2 chronic disease and chemotherapy effect transfusion support if hgb < 7 Hg 10.4 on admission Status post 1 unit of PRBC 01/27 She has been on Eliquis for DVT and PE. I explained to the family that will continue with Eliquis for now. However if becomes more anemic may need to discontinue or change to heparin ggt. Per family she has been getting chemotherapy Diabetes HgbA1C: 8.6 Lantus 10u SC QPM (increased from 7u 01/29) Novolin SC ACHS Hypertension PMD recently took her off her home BP meds which included valsartan, norvasc and cardizem History of Lung Cancer S/p left lower lobe lung lobectomy Thyroid Disorder Patient reports having history of thyroid disease, but does not know which type and does not take medications. TSH 0.23 (L), T4 WNL History of UTI Urine Culture 01/25 shows no growth UA 01/25 shows 3+ glucose, 1+ ketones, and 2 urine urobilinogen Anxiety Patient anxious and agitated at bedside 01/29 Per son-in-law, patient takes ativan 1mg at home for anxiety and ambien for sleep; also was on cymbalta Zolpidem 5mg PO HS PRN Ativan 0.5mg PO ONCE 01/29 Prophylactic measure Eliquis 5mg PO BID Pepcid 20mg PO BID Consistent carb/heart health 2Na diet Physical therapy on board for eval and treat This patient is awaiting CT abdomen and pelvis with likely discharge if the results do not indicate need for further inpatient care. Case discussed with Dr. Khan
[2017-02-03] MEDS ORDERED: Iodixanol 320 MG/ML 100 ML BOTTLE IV ONE (12:49)
[2017-02-03 12:57] VITALS: PULSE 76
--- NOTE | 2017-02-03 13:35 | CP.PCM.PN ---
Subjective - Date & Time of Evaluation Date of Evaluation: 02/03/17 Time of Evaluation: 13:35 Objective - Vital Signs/Intake and Output Vital Signs (last 24 hours): Temp Pulse Resp BP Pulse Ox 98.4 F 76 20 122/73 98 02/03/17 08:20 02/03/17 12:47 02/03/17 08:20 02/03/17 08:20 02/03/17 08:20 - Medications Medications: Current Medications Acetaminophen (Tylenol 325mg Tab) 650 mg PO Q6 PRN PRN Reason: Pain, Mild (1-3) Last Admin: 01/31/17 18:43 Dose: 650 mg Acetylcysteine (Acetylcysteine 20%) 4 ml INH RQ6 MARCELINA Last Admin: 02/03/17 13:27 Dose: Not Given Albuterol/Ipratropium (Duoneb 3 Mg/0.5 Mg (3 Ml) Ud) 3 ml INH RQ6 MARCELINA Last Admin: 02/03/17 13:26 Dose: Not Given Apixaban (Eliquis) 5 mg PO BID [facility] Last Admin: 02/03/17 09:47 Dose: 5 mg Famotidine (Pepcid) 20 mg PO BID [facility] Last Admin: 02/03/17 09:47 Dose: 20 mg Imipenem/Cilastatin Sodium 500 (mg/ Sodium Chloride) 100 mls @ 250 mls/hr IVPB Q6H [facility] Last Admin: 02/03/17 08:33 Dose: 250 mls/hr Insulin Glargine (Lantus) 12 unit SC HS [facility] Last Admin: 02/02/17 21:41 Dose: 12 units Insulin Human Regular (Novolin R) 0 unit SC ACHS MARCELINA PRN Reason: Protocol Last Admin: 02/03/17 11:45 Dose: 2 unit Levetiracetam (Keppra) 500 mg PO BID [facility] Last Admin: 02/03/17 09:47 Dose: 500 mg Lorazepam (Ativan) 0.5 mg PO TID PRN PRN Reason: Anxiety Last Admin: 02/02/17 19:07 Dose: 0.5 mg Ondansetron HCl (Zofran Inj) 4 mg IVP Q4H PRN PRN Reason: Nausea/Vomiting Last Admin: 02/03/17 09:59 Dose: 4 mg Prednisone (Prednisone Tab) 10 mg PO DAILY [facility] Stop: 02/04/17 23:59 Prednisone (Prednisone Tab) 20 mg PO DAILY MARCELINA Stop: 02/03/17 23:59 Last Admin: 02/03/17 09:47 Dose: 20 mg Zolpidem Tartrate (Ambien) 5 mg PO HS PRN PRN Reason: Insomnia Last Admin: 02/02/17 21:40 Dose: 5 mg - Labs Labs: 02/03/17 07:16 02/03/17 07:16 Assessment and Plan (1) Pneumonia Status: Acute (2) Shortness of breath Status: Acute
--- NOTE | 2017-02-03 14:20 | CT ---
PROCEDURE: CT Chest, Abdomen and Pelvis with intravenous contrast HISTORY: Breast cancer w/ mets; abdominal pain COMPARISON: None. TECHNIQUE: CT scan of the chest, abdomen and pelvis was performed after intravenous administration of contrast. Oral contrast was administered. Coronal and sagittal reformatted images were obtained. IV dose administered: 100 mL Visipaque Radiation dose: Total exam DLP = 545.79 mGy-cm. This CT exam was performed using one or more of the following dose reduction techniques: Automated exposure control, adjustment of the mA and/or kV according to patient size, and/or use of iterative reconstruction technique. FINDINGS: CT CHEST WITH CONTRAST: LUNGS: Since the prior examination, there has been interval improvement in the right upper lobe consolidation with improved aeration in the lung apex and anterior segment of the right upper lobe. There is persistent consolidation in the posterior segment of the right upper lobe extending in the right paratracheal region and in the perihilar region with resultant narrowing of the right upper lobe bronchus. There is also heterogeneous enhancement and hypodensity in the hilar soft tissue. There is linear atelectasis/ scarring in the right apex. There is subsegmental atelectasis in the left lung base. There is a stable 3 mm subpleural nodule in the lingula. MEDIASTINUM: There is no pathologic prevascular pretracheal or subcarinal lymphadenopathy. Extensive heterogeneously enhancing soft tissue in the right tracheobronchial hilar and perihilar regions. The heart is normal in size. No pericardial effusion. Extensive coronary artery calcifications. PLEURA: Small right pleural effusion. No pneumothorax. No left pleural fluid. BONES: Diffuse bone demineralization. Multilevel degenerative changes. No destructive bony lesion. CT ABDOMEN AND PELVIS: LIVER: There is mild hepatomegaly and multiple variable size low-attenuation lesions in the liver, the largest in the left hepatic lobe measures 3.5 cm. No intrahepatic biliary ductal dilatation. GALLBLADDER AND BILE DUCTS: The gallbladder is contracted. PANCREAS: Normal in size. The pancreatic margins are indistinct. No gross lesion or ductal dilatation. SPLEEN: Normal in size and appearance. ADRENALS: No discrete nodule. KIDNEYS AND URETERS: Both kidneys are normal in size and there is homogeneous enhancement without hydronephrosis. There are simple cysts in both kidneys, the largest in the left lower pole measures 5.2 cm. 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 VASCULATURE: No aortic aneurysm. BOWEL: The small bowel loops are normal in caliber. There is large amount of stool in the colon. No bowel dilatation or obstruction. There is sigmoid diverticulosis without CT evidence for acute diverticulitis. APPENDIX: Normal appendix. PERITONEUM: No free fluid. No free air. LYMPH NODES: No enlarged lymph nodes. BLADDER: Unremarkable. REPRODUCTIVE: The uterus is surgically absent. BONES: There is an old fracture deformity in the L1 vertebral body and age indeterminate superior endplate compression deformity in the L3 vertebral body. There are multilevel degenerative changes. There is diffuse bone demineralization. OTHER FINDINGS: None. IMPRESSION: 1. Interval improvement in right upper lobe consolidation with aeration in the lung apex and anterior segment of the right upper lobe and residual consolidation in the posterior segment of the right upper lobe and perihilar regions. Perihilar soft tissue narrows the right upper lobe bronchus. Hilar and perihilar metastasis is a consideration. 2. Small right pleural effusion. 3. Hepatic metastasis. 4. Simple cyst an angioma lipoma as in both kidneys. 5. Sigmoid diverticulosis without CT evidence for acute diverticulitis.
--- NOTE | 2017-02-03 16:17 | CP.PCM.DIS ---
Provider - Provider Date of Admission: 01/25/17 12:14 Attending physician: Raven Douglass MD Primary care physician: Dr. Zhou Consults: Dr. Rusty John Time Spent in preparation of Discharge (in minutes): 90 Hospital Course - Lab Results Lab Results: Micro Results 01/25/17 10:55 Blood Blood Culture - Final NO GROWTH AFTER 5 DAYS 01/25/17 10:55 Blood Gram Stain - Final TEST NOT PERFORMED 01/25/17 12:14 Blood Blood Culture - Final NO GROWTH AFTER 5 DAYS 01/25/17 12:14 Blood Gram Stain - Final TEST NOT PERFORMED 01/25/17 22:03 Urine Urine Culture - Final No Growth (<1,000 CFU/ML) Most Recent Lab Values WBC 10.1 K/uL (4.8-10.8) 02/03/17 07:16 RBC 3.80 Mil/uL (3.80-5.20) 02/03/17 07:16 Hgb 11.3 g/dL (11.0-16.0) 02/03/17 07:16 Hct 33.3 % (34.0-47.0) L 02/03/17 07:16 MCV 87.7 fL (81.0-99.0) 02/03/17 07:16 MCH 29.8 pg (27.0-31.0) 02/03/17 07:16 MCHC 34.0 g/dL (33.0-37.0) 02/03/17 07:16 RDW 17.8 % (11.5-14.5) H 02/03/17 07:16 Plt Count 499 K/uL (130-400) H 02/03/17 07:16 MPV 8.6 fL (7.2-11.7) 02/03/17 07:16 Neut % (Auto) 77.3 % (50.0-75.0) H 02/03/17 07:16 Lymph % (Auto) 13.1 % (20.0-40.0) L 02/03/17 07:16 [place] % (Auto) 8.5 % (0.0-10.0) 02/03/17 07:16 Eos % (Auto) 0.6 % (0.0-4.0) 02/03/17 07:16 Baso % (Auto) 0.5 % (0.0-2.0) 02/03/17 07:16 Neut # 7.8 K/uL (1.8-7.0) H 02/03/17 07:16 Lymph # 1.3 K/uL (1.0-4.3) 02/03/17 07:16 [place] # 0.9 K/uL (0.0-0.8) H 02/03/17 07:16 Eos # 0.1 K/uL (0.0-0.7) 02/03/17 07:16 Baso # 0.1 K/uL (0.0-0.2) 02/03/17 07:16 Neutrophils % (Manual) 79 % (50-75) H 02/01/17 07:47 Band Neutrophils % 1 % (0-2) 02/01/17 07:47 Lymphocytes % (Manual) 7 % (20-40) L 02/01/17 07:47 Monocytes % (Manual) 13 % (0-10) H 02/01/17 07:47 Blast Cells % 1 % (0-0) H 01/28/17 07:57 Nucleated RBC % 1 % (0-0) H 01/28/17 07:57 Platelet Estimate Normal (NORMAL) 02/01/17 07:47 Plt Clumps, EDTA Timber Sizer 01/25/17 10:56 Large Platelets Present 01/31/17 13:55 Giant Platelets Present 01/25/17 10:56 Polychromasia Slight 01/29/17 06:47 Hypochromasia (manual) Slight 02/01/17 07:47 Poikilocytosis (manual Slight 02/01/17 07:47 Basophilic Stippling Slight 02/01/17 07:47 Anisocytosis (manual) Slight 02/01/17 07:47 Tear Drop Cells Slight 02/01/17 07:47 Ovalocytes Slight 02/01/17 07:47 Retic Count 0.9 % (0.5-1.5) 01/27/17 07:13 Puncture Site Lr 01/25/17 12:35 pCO2 32 mm/Hg (35-45) L 01/25/17 12:35 pO2 79 mm/Hg (80-100) L 01/25/17 12:35 HCO3 25.4 mmol/L (21-28) 01/25/17 12:35 ABG pH 7.48 (7.35-7.45) H 01/25/17 12:35 ABG Total CO2 24.8 mmol/L (22-28) 01/25/17 12:35 ABG O2 Saturation 96.7 % (95-98) 01/25/17 12:35 ABG Base Excess 0.7 mmol/L (-2.0-3.0) 01/25/17 12:35 ABG Hemoglobin 10.0 g/dL (11.7-17.4) L 01/25/17 12:35 ABG Carboxyhemoglobin 1.5 % (0.5-1.5) 01/25/17 12:35 POC ABG HHb (Measured) 3.2 % (0.0-5.0) 01/25/17 12:35 ABG Methemoglobin 1.6 % (0.0-3.0) 01/25/17 12:35 Saman Test Pos 01/25/17 12:35 A-a O2 Difference 238.0 mm/Hg 01/25/17 12:35 Respiratory Index 3.0 01/25/17 12:35 Hgb O2 Saturation 93.7 % (95.0-98.0) L 01/25/17 12:35 FiO2 50.0 % 01/25/17 12:35 Inspiratory BiPAP 10 01/25/17 12:35 Expiratory BiPAP 5 01/25/17 12:35 Sodium 135 mmol/L (132-148) 02/03/17 07:16 Potassium 3.1 mmol/L (3.6-5.2) L 02/03/17 07:16 Chloride 97 mmol/L (98-107) L 02/03/17 07:16 Carbon Dioxide 35 mmol/L (22-30) H 02/03/17 07:16 Anion Gap 7 (10-20) L 02/03/17 07:16 BUN 6 mg/dL (7-17) L 02/03/17 07:16 Creatinine 0.5 mg/dL (0.7-1.2) L 02/03/17 07:16 Est GFR ( Amer) > 60 02/03/17 07:16 Est GFR (Non-Af Amer) > 60 02/03/17 07:16 POC Glucose (mg/dL) 187 mg/dL (65-110) H 02/03/17 11:13 Random Glucose 105 mg/dL (65-105) 02/03/17 07:16 Hemoglobin A1c 8.6 % (4.2-6.5) H 01/25/17 16:50 Lactic Acid 1.6 mmol/L (0.7-2.1) 01/25/17 11:57 Calcium 7.8 mg/dl (8.6-10.4) L 02/03/17 07:16 Phosphorus 1.9 mg/dL (2.5-4.5) L 01/31/17 13:55 Magnesium 1.9 mg/dL (1.6-2.3) 01/31/17 13:55 Ferritin 267.0 ng/mL 01/27/17 07:13 Total Bilirubin 0.9 mg/dL (0.2-1.3) 02/03/17 07:16 AST 15 U/L (14-36) 02/03/17 07:16 ALT 21 U/L (9-52) 02/03/17 07:16 Alkaline Phosphatase 63 U/L (38-126) 02/03/17 07:16 Troponin I < 0.0120 ng/mL (0.00-0.120) 01/26/17 20:26 NT-Pro-B Natriuret Pep 593 pg/mL (0-900) 01/25/17 10:56 Total Protein 4.8 g/dL (6.3-8.3) L 02/03/17 07:16 Albumin 2.8 g/dL (3.5-5.0) L 02/03/17 07:16 Globulin 2.0 gm/dL (2.2-3.9) L 02/03/17 07:16 Albumin/Globulin Ratio 1.4 (1.0-2.1) 02/03/17 07:16 Vitamin B12 930 pg/mL (239-931) 01/27/17 07:13 Folate 4.0 ng/mL 01/27/17 07:13 Procalcitonin 10.46 NG/ML (0.19-0.49) H 01/27/17 14:17 Thyroxine (T4) 7.16 ug/dL (5.5-11.0) 01/26/17 07:39 TSH 3rd Generation 0.23 mIU/L (0.46-4.68) L 01/26/17 07:39 Urine Color Yellow (YELLOW) 01/25/17 21:54 Urine Clarity Clear (Clear) 01/25/17 21:54 Urine pH 6.0 (5.0-8.0) 01/25/17 21:54 Ur Specific [place] 1.021 (1.003-1.030) 01/25/17 21:54 Urine Protein Negative mg/dL (NEGATIVE) 01/25/17 21:54 Urine Glucose (UA) 3+ mg/dL (Normal) H 01/25/17 21:54 Urine Ketones 1+ mg/dL (NEGATIVE) H 01/25/17 21:54 Urine Blood Negative (NEGATIVE) 01/25/17 21:54 Urine Nitrate Negative (NEGATIVE) 01/25/17 21:54 Urine Bilirubin Negative (NEGATIVE) 01/25/17 21:54 Urine Urobilinogen 2.0 mg/dL (0.2-1.0) H 01/25/17 21:54 Ur Leukocyte Esterase Neg Shamar/uL (Negative) 01/25/17 21:54 Urine WBC (Auto) 1 /hpf (0-5) 01/25/17 21:54 Urine RBC (Auto) < 1 /hpf (0-3) 01/25/17 21:54 Influenza Typ A,B (EIA) Negative for flu a/b (NEGATIVE) 01/25/17 22:00 Blood Type A POSITIVE 01/26/17 11:22 Blood Type Confirm A POSITIVE 01/26/17 11:22 Antibody Screen Negative 01/26/17 11:22 - Hospital Course Hospital Course: CC: abdominal pain, sob HPI: Patient is a 76 yo female with PMH of breast cancer w/ mets, HTN, DM, and thyroid disorder, who presented to the ED for abdominal pain and shortness of breath. Patient complained of cough that was productive with white sputum and abdominal pain for the past two weeks; however, patient currently denies abdominal pain and cough, and only complained of shortness of breath and generalized weakness. Patient's PMD, Dr. Zhou, reports she was recently admitted to [facility] and was being treated for a multi-drug resistant UTI, however, she signed out AMA. Patient has a history of breast cancer and is currently receiving chemotherapy via port on left chest for " brain cancer". She last received chemotherapy on Sunday 2 weeks ago. Patient is a poor historian. Patient's was at bed side and contributing to some of the patient's history. The patient currently denies fever, chills, dizziness , headaches, chest pain, leg pain, dysuria. PMD: Dr. Zhou Oncologist: does not know name PMHx: Breast cancer w/ mets, HTN, DM, thyroid disorder (not sure if its hypo or hyper and does not take medication), "Brain cancer" SurgHx: Cesarian section; b/l mastectomy 2014 FamHx: unknown SocHx: denies tobacco, alcohol, drug use; unemployed Allergies: NKDA Medications: "medication for diabetes" HOSPITAL COURSE: Pneumonia This patient with a PMHx of breast cancer with metastasis to brain, lung, liver , and ?bone, was treated for pneumonia, most likely secondary to immunocomprimised state/post-obstruction. The pneumonia was most likely responsible for her shortness of breath. On admission she had an elevated procalcitonin and bandemia and was septic on admission based on the SIRS criteria. Infectious disease Dr Cook was consulted. She was given Imipenem/ Cilastin 500mg IVPB Q6H for a total of 10 days during her admission. She was also given vancomycin 1g IVPB Q12H for a total of 7 days during her admission. To resolve of symptoms of dyspnea she was placed on BIPAP and was given duoneb, acetylcystheine, and methylprednisolone (which was later tapered to oral prednisone). Blood cultures and urine cultures were negative. Pulmonary was also consulted, Dr John. Imaging results are as follows: (see chart for full report) Imaging: Repeat Chest XRAY 01/29: No significant interval change compared to the prior examination(s). Persistent large right upper lobe infiltrate Repeat Chest XRAY 01/28: Worsening left basilar airspace opacity with pleural effusion. Persistent consolidative changes to the right upper to mid lung zone. Chest CT Angio 01/26: No pulmonary embolism. Consolidation in the posterior aspect of the right upper lobe which may represent an infiltrate/pneumonia. Underlying mass is not evident at this time although this is not entirely excluded particularly given the known probable metastatic liver findings. Short -term follow-up imaging post therapy is recommended. Small right pleural effusion with adjacent atelectasis. Debris and thickening of the right mainstem bronchus, the upper lobe bronchus, and the bronchus intermedius. Numerous hepatic hypodense masses most consistent with metastatic disease. Chest XRAY 01/25: Interval right upper lobe collapse - endobronchial and or surrounding extrinsic compressive causative lesion suspect. Chest CT w/o contrast 01/25: Evidence of partial left lower lobectomy. Extensive opacification of the right upper lobe possibly represents soft tissue mass/malignant neoplasm, pneumonia, and/or postobstructive atelectasis. Correlate clinically. This finding is inseparable from the upper mediastinum and right hilum. The right upper lobe bronchus appears narrowed, possibly occluded. Suspect mucous or neoplasm within the distal right lower lobe bronchus. Small right pleural effusion which dependent consolidation. Numerous hypodense hepatic masses worrisome for metastases. Bilateral mastectomy. Mixed chondroid matrix lesion, right humerus. This may represent enchondroma or chondrosarcoma in the proper clinical setting. Partially imaged L2 compression fracture deformity. Pulmonary Embolism (per patient, PE found 3 weeks ago at [facility]) Family members report that recently at [facility] she had a DVT and then a PE; mechanical thrombectomy of PE considered however not done due to low LVEF. Cardiology was consulted, Dr Manuel. Troponins were drawn which were negative; a pro-bnp was within normal levels. Per family members, she was recently started on eliquis 5mg PO BID for DVT and PE, thus this medication was re-started. A chest CT Angio was done which showed no pulmonary embolism. A duplex acan lower extremities was negative. An ECHO was done which showed "Normal LVSF. LVH with diastolic dysfunction. Dilated LA. Mild MR. Mild TR". Breast Cancer w/ Mets Hematology/Oncology was consulted, Dr Penaloza. Possible mets to brain, lung, liver and possibly bone. 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 She is status post radiotherapy and is on outpatient chemotherapy at [facility] with Dr Castaneda (hematology/oncologist [phone] Penaloza discussed with pts family the importance of completing her full antibiotic course before resuming her chemotherapy with her primary oncologist. Anemia Patient was anemic and was given 1 unit pRBC on 01/27. The anemia is likely secondary to chronic disease and chemotherapy effect. Diabetes HgbA1C was 8.6. She was given novolin SC ACHS and Lantus 10u SC QPM. Her sugars were elevated due to combo of her diabetes and her methylprednisolone/ prednisone administration. History of lung cancer/HTN/Thyroid Disorder/Anxiety Patient is status-post left lower lung lobectomy in the past. She was recently taken off her BP meds (valsartan, norvasc, cardizem) by her PMD. Patient reports having history of thyroid disease, but does not know which type and does not take medications. TSH 0.23 (L), T4 WNL. To treat her anxiety patent was given ativan once and zolpidem 5mg PO HS PRN. Disposition: upon discharge the patient was notified with family at bedside that the following medications were started and scripts were provided for the following: Eliquis 5mg PO daily Levaquin 500mg PO daily for 5 days Keppra 500mg PO daily KCL 20mg PO daily for 3 days Prednisone 30mg PO for 2 days, then 20mg PO for 2 days, then 10mg PO for 2 days , then stop CT scan upon discharge showed improvement in RUL consolidation. She was clinically improved from admission as well. The patient was instructed to have follow up with her PCP and oncologist as soon as possible. These instructions were discussed in detail with her and patient/family expressed understanding. Discharge Exam - Head Exam Head Exam: ATRAUMATIC - Eye Exam Eye Exam: EOMI, Normal appearance - ENT Exam ENT Exam: Mucous Membranes Moist - Respiratory Exam Respiratory Exam: Decreased Breath Sounds, Rales (mild), Rhonchi (mild), NORMAL BREATHING PATTERN - Cardiovascular Exam Cardiovascular Exam: REGULAR RHYTHM - GI/Abdominal Exam GI & Abdominal Exam: Soft. absent: Distended, Guarding, Tenderness - Neurological Exam Neurological exam: Alert, Oriented x3 - Skin Skin Exam: Dry, Warm Discharge Plan - Discharge Medications Prescriptions: Apixaban [Eliquis] 5 mg PO BID 30 Days #60 tab levETIRAcetam [Keppra] 500 mg PO BID 30 Days #60 tab Potassium Chloride [K-Dur 20 mEq ER Tab] 20 meq PO DAILY 3 Days #3 tab - Follow Up Plan Condition: GUARDED Disposition: HOME/ ROUTINE Instructions: Potassium Chloride (By mouth), Levetiracetam (By mouth), Apixaban (By mouth), Diabetes Mellitus Type 2 in Adults (DC), Pleural Effusion ( DC), Hypertension (DC), Anemia (DC), Pneumonia (DC) Additional Instructions: Patient is medically stable for discharge. Patient's status was discussed with daughter and son-in-law, who work here at [facility] [place]. Patient will be discharged with scripts for the following medications to be taken as prescribed: Apixaban [Eliquis] 5mg PO BID Levetiracetam [Keppra] 500mg PO BID Patient should follow-up with her Oncologist, Dr Castaneda, to continue care. Patient should follow-up with her Primary Medical Doctor in 1 week, so he may be aware of this admission. The patient should resume medications prescribed by her PMD. If symptoms worsen or return, promptly return to the ER.
--- NOTE | 2017-02-04 14:45 | CP.PCM.PN ---
Subjective - Date & Time of Evaluation Date of Evaluation: 02/04/17 Time of Evaluation: 14:45 Objective - Vital Signs/Intake and Output Vital Signs (last 24 hours): Temp Pulse Resp BP Pulse Ox 98.4 F 76 20 122/73 98 02/03/17 08:20 02/03/17 12:47 02/03/17 08:20 02/03/17 08:20 02/03/17 08:20 - Labs Labs: 02/03/17 07:16 02/03/17 07:16 Assessment and Plan (1) Pneumonia Status: Acute (2) Shortness of breath Status: Acute
== END 2017-02-03 16:45 | disposition home or self-care (01) | DRG 871 ==
LOC: C.ER 10:19 → C.6T 12:14
PROVIDERS: ADMIT Internal Medicine; ATTEND Internal Medicine
PROC: 5A09557 Assistance with Respiratory Ventilation, Greater than 96 Consecutive Hours, Continuous Positive Airway Pressure (ICD-10-PCS; principal; 2017-01-25)
PROC: 30233N1 Transfusion of Nonautologous Red Blood Cells into Peripheral Vein, Percutaneous Approach (ICD-10-PCS; 2017-01-26)
DX: A41.9 Sepsis, unspecified organism (principal); J18.9 Pneumonia, unspecified organism; J96.90 Respiratory failure, unspecified, unspecified whether with hypoxia or hypercapnia; C78.00 Secondary malignant neoplasm of unspecified lung; C78.7 Secondary malignant neoplasm of liver and intrahepatic bile duct; C79.31 Secondary malignant neoplasm of brain; C79.51 Secondary malignant neoplasm of bone; D63.8 Anemia in other chronic diseases classified elsewhere; E11.9 Type 2 diabetes mellitus without complications; I50.30 Unspecified diastolic (congestive) heart failure; J44.0 Chronic obstructive pulmonary disease with (acute) lower respiratory infection; J98.11 Atelectasis; I11.0 Hypertensive heart disease with heart failure; E03.9 Hypothyroidism, unspecified; Z85.3 Personal history of malignant neoplasm of breast; Z92.21 Personal history of antineoplastic chemotherapy; Z90.13 Acquired absence of bilateral breasts and nipples; Z79.84 Long term (current) use of oral hypoglycemic drugs; Z87.440 Personal history of urinary (tract) infections; Z86.718 Personal history of other venous thrombosis and embolism; Z86.711 Personal history of pulmonary embolism; Z92.3 Personal history of irradiation; D64.81 Anemia due to antineoplastic chemotherapy; T38.0X5A Adverse effect of glucocorticoids and synthetic analogues, initial encounter; F41.9 Anxiety disorder, unspecified; Z90.2 Acquired absence of lung [part of]; Z91.81 History of falling; R56.9 Unspecified convulsions; R45.1 Restlessness and agitation; G47.00 Insomnia, unspecified; Z79.01 Long term (current) use of anticoagulants; Z79.899 Other long term (current) drug therapy